=== PATIENT | female | born 1950 | race Caucasian/White ===

== ENCOUNTER 2022-01-01 11:51 | Emergency (ER) | payer MEDICARE, MEDICAID, SELFPAY ==
--- NOTE | ~2022-01-01 | CT_ITS ---
EXAMINATION: CT HEAD WITHOUT CONTRAST CLINICAL INFORMATION: Status post fall with head trauma. COMPARISON: None TECHNIQUE: Contiguous axial imaging was performed from the skull base to vertex without intravenous administration of contrast. Coronal and sagittal reformatted images were obtained. This CT examination was performed using dose optimization techniques as appropriate, variously including the following: *Automated exposure control *Adjustment of mA and/or kV according to patient size (this includes techniques or standardized protocols for targeted exams where dose is matched to indication/reason for exam; i.e. extremities or head) *Use of iterative reconstruction technique DLP: 663.97 mGy-cm FINDINGS: There is mild widening of the cortical sulci and associated ventriculomegaly. Mild periventricular microvascular changes are seen. The lateral ventricles are symmetrical. The third and fourth ventricles are in their normal midline position. The basilar and prepontine cisterns are unremarkable. There is no acute intra or extracerebral abnormality. There is no mass effect or midline shift. Sections through the bony calvarium show a small nonacute defect in the left frontal bone medially without associated abnormality. Small sclerotic density along the external table of the right frontal lobe medially as well. Tiny adjacent midline sclerotic density at this level as well. The orbits are intact. The paranasal sinuses show mild mucosal thickening in the right sphenoid sinus. The mastoid air cells are clear. Mild anterior to mid nasal septal deviation, apex of the right. CT/CT head/brain wo IV con IMPRESSION: 1. No acute intracranial pathology. 2. Small findings in the frontal bones are nonspecific, but do not appear acute and are likely incidental. No surrounding associated abnormality is seen.
--- NOTE | ~2022-01-01 | CT_ITS ---
EXAMINATION: CT CERVICAL SPINE WITHOUT CONTRAST CLINICAL INFORMATION: Neck pain status post fall. COMPARISON: None TECHNIQUE: Multiple axial images of the cervical spine were obtained without the administration of intravenous contrast. Coronal and sagittal reformatted images were obtained. This CT examination was performed using dose optimization techniques as appropriate, variously including the following: *Automated exposure control *Adjustment of mA and/or kV according to patient size (this includes techniques or standardized protocols for targeted exams where dose is matched to indication/reason for exam; i.e. extremities or head) *Use of iterative reconstruction technique DLP: 973 mGy-cm FINDINGS: There is generalized osteopenia. Normal lumbar lordosis is seen. Moderate degenerative disc disease is seen at C5-6 with mild grade 1 retrolisthesis and minimal bilateral neural foraminal narrowing. The facet joints are unremarkable. The spinous processes are intact. The cervical soft tissues are unremarkable. No lymphadenopathy. The thyroid gland shows a coarsely calcified nodules in the isthmus and lobes bilaterally without significant abnormality, not requiring follow-up. The visualized lung apices are clear. CT/CT cervical spine wo IV con IMPRESSION: 1. Generalized osteopenia and C5-6 moderate degenerative disc disease without acute abnormality.
[2022-01-01 11:48] VITALS: BP 150/90; PULSE 87; O2SAT 95
[2022-01-01 11:51] VITALS: BP 146/90; PULSE 89; RESP 18; TEMP 36.9; O2SAT 96
--- NOTE | 2022-01-01 11:54 | ED_ITS ---
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 Patient was outside [facility] smoking a cigarette with another client when they fell on top of each other, this patient fell on top of the other patient. Patient admits to hitting head & abrasion to left elbow. Denies LOC. Denies taking anticoagulation. Denies injury to other area, neck pain, back pain, CP/SOB, abdominal pain, nausea/vomiting. Denies symptoms prior to fall Patient is poor historian complaint: fall Onset (ago): hour(s) Fall from: standing Related Data Allergies Allergy/AdvReac Type Severity Reaction Status Date / Time No Known Allergies Allergy Verified 01/01/22 11:49 Review of Systems Review of Systems: Constitutional: No Fever, No Chills, No Fatigue, No Malaise ENT/Mouth: No Ear Pain, No Nasal Congestion, No sore throat, No Rhinorrhea, No Swallowing Difficulty Eyes: No Eye Pain, No Swelling, No Redness, No Vision Changes Cardiovascular: No Chest Pain, No SOB Respiratory: No Cough, No Dyspnea Gastrointestinal: No Nausea, No Vomiting, No Abdominal pain Musculoskeletal: No joint pain, No Myalgias, No Joint Swelling Skin: + Skin Lesions, No rash Neuro: No Weakness, No Loss of Consciousness, No Dizziness, + Head injury Yes all other systems are reviewed and are negative Constitutional: Constitutional: Reports as per HPI Neurologic: Denies Abnormal speech present [facility] Past Medical History Attestation statement: The following information was validated with the patient. Social History Social History Advance Directives: No Advance Directives Information Provided: No Physical Exam Vital Signs: Vital Signs: Last Vital Signs Temp 98.4 F 01/01/22 11:51 Pulse 89 01/01/22 11:51 Resp 18 01/01/22 11:51 BP 146/90 H 01/01/22 11:51 Pulse Ox 96 01/01/22 11:51 O2 Del Method 01/01/22 11:51 BMI result Body Mass Index 0.0 Const: General: no acute distress, alert, awake and Physically active Limitations: no limitations HEENT: Head: Yes normal to inspection and Yes atraumatic Ears: hearing grossly normal bilaterally General nose exam: Normal external nose present Face and sinus: Yes normal facial exam Mouth: Normal oral and palatal mucosa present Eyes: General: appearance normal, both eyes and all related structures Pupils: Equal, round and reactive pupils present EOM: EOMs intact bilaterally Neck: Other: No midline cervical spinous tenderness Neck: Yes normal visual inspection and Yes no meningeal signs Chest: Chest palpation & inspection: normal inspection of the chest Resp: Effort & Inspection: normal respiratory effort and no respiratory distress Auscultation: clear to auscultation bilaterally, no crackles, no rales and no rhonchi Cardio: Rate: regular rate Heart sounds: S1 normal heart sound present and S2 normal heart sound present GI: Inspection: Yes normal to inspection Palpation (GI): Soft to palpation, nontender, no guarding and not rigid : General: Yes no CVA tenderness Back/Spine/Pelvis: Other: No midline thoracic/lumbar spinous tenderness/step-off or deformity Back: no CVA tenderness Skin: Other: + skin avulsion to left elbow Rashes: no rashes Neuro: Other: Baseline unsteady gait, ambulates with walker General: tone normal, no meningeal signs, no focal motor deficits and CN's II-XI intact bilaterally Cranial nerves: Yes Equal, round and reactive pupils present Cognition (Neuro): normal cognition Speech: No Abnormal speech present Motor exam (neuro): 5/5 motor strength present throughout Extrem: General: Yes normal to inspection Course Course Course Narrative: -patient has been persistently refusing imaging and allowing us to clean her wounds. Patient is under full guardianship due to her schizophrenia, called and spoke with patient's guardian Lupe Lott to clarify and discuss plan of action, Lupe would like patient to obtain imaging studies/everything she needs, will give IM Benadryl and IM Zyprexa to obtain studies -patient lethargic/more cooperative after medications, protecting airway. CT's obtained CT head/brain wo IV con IMPRESSION: ? 1. No acute intracranial pathology. 2. Small findings in the frontal bones are nonspecific, but do not appear acute and are likely incidental. No surrounding associated abnormality is seen. CT cervical spine wo IV con IMPRESSION: ? 1. Generalized osteopenia and C5-6 moderate degenerative disc disease without acute abnormality.? Results discussed with patient including worrisome signs and symptoms and strict return precautions, and when to return to the emergency department. They verbalized understanding and feel safe for discharge at this time. 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 On exam vital signs stable, NAD, mentation/ambulation at baseline, no focal neuro deficits, skin abrasion/avulsion noted to left elbow, no other evidence of trauma. Plan: Head/C-spine CT, elbow x-ray. Patient refusing to allow us to clean skin wound Differential Diagnosis Differential diagnosis: Likely fracture and concussion without loss of consciousness Medical Records Attestation: I reviewed the patient's medical records. Lab Data Attestation: I reviewed the patient's lab results. Labs: Lab Results 01/01/22 Range/Units 14:49 POC Glucose 96 (60-115) mg/dL Discharge Plan Discharge Clinical Impression: Fall, Abrasion, Degenerative disc disease, cervical Patient Disposition: Xfer SNF Transfer Details: [facility] Instructions: Fall Prevention (ED), Degenerative Disc Disease (ED) Additional Instructions: Your head CT and neck CT do not show any acute findings. Keep abrasion drying clean, apply topical bacitracin or Neosporin as needed USE YOUR WALKER WHEN AMBULATING. FOLLOW UP WITH YOUR DOCTOR If symptoms persist or worsen return to the emergency department Referrals: Eugenio Mota MD [Primary Care Provider] - 3 days
--- NOTE | 2022-01-01 12:02 | PC.NURSE ---
attempted to administer benadryl 50mg IM- pt stated I know my rights, and I refuse . reapproached patient, offered to cleanse wound for patient, refused care. Medication was once again refused.
--- NOTE | 2022-01-01 13:31 | PC.NURSE ---
CT Scan attempted again to take pt for exam- pt stated clearly I refuse, I feel fine
[2022-01-01] MEDS: OLANZapine 10 MG VIAL IM (14:01)
[2022-01-01] MEDS: diphenhydrAMINE HCL 50 MG/ML VIAL IM (14:04)
[2022-01-01 14:56] LABS: Glucose, Whole Blood 96 mg/dL (60-115)
--- NOTE | 2022-01-01 18:09 | PC.NURSE ---
called [facility] home- no answer left to call dept for report
== END 2022-01-01 18:10 | disposition skilled nursing facility (03) ==
PROVIDERS: Emergency Provider Emergency Medicine; PCP Internal Medicine
DX: S50.312A Abrasion of left elbow, initial encounter (principal); S09.90XA Unspecified injury of head, initial encounter; W17.89XA Other fall from one level to another, initial encounter; M50.322 Other cervical disc degeneration at C5-C6 level; E11.9 Type 2 diabetes mellitus without complications; F17.210 Nicotine dependence, cigarettes, uncomplicated; Y93.89 Activity, other specified; Y92.126 Garden or yard of nursing home as the place of occurrence of the external cause; Y99.9 Unspecified external cause status
CPT/HCPCS: 70450; 72125; 82947; 96372; 99282; 99284; J1200

== ENCOUNTER 2022-02-24 15:17 | Emergency (ER) | payer MEDICARE, MEDICAID, SELFPAY ==
[2022-02-24 15:38] VITALS: BP 155/68; PULSE 60; RESP 18; TEMP 36.6; O2SAT 96; BMI 22.6
[2022-02-24 16:00] VITALS: BP 117/63; PULSE 64; RESP 16; TEMP 36.6; O2SAT 98
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
--- NOTE | 2022-02-24 16:38 | PC.NURSE ---
pt was assisted with ambulation to bathroom and back to bed,pt voided large amount of urine .
--- NOTE | 2022-02-24 16:45 | PC.NURSE ---
patient a/ox3 . pearrla. breathing even and unlabored . lungs clear throughout . heart rate regular at 75 beats per minute . skin pink warm and dry , no trauma or bruising noted on skin inspection . abdomen soft not tender . positive bowel sounds in all four quadrants . patient reports walking outside and falling without hitting her head or LOC . It was also unwitnessed . Patient refuses scans . Patient ambulates with use of walker . patient aware of plan of care .
[2022-02-24 18:00] VITALS: BP 130/72; PULSE 57; RESP 18; TEMP 36.6; O2SAT 97
--- NOTE | 2022-02-24 18:43 | PC.NURSE ---
1800 rounding done vs taken ,patient had pasta for supper ate 100 % of meal ,drank 360 ml juice and milk .
--- NOTE | 2022-02-24 20:05 | PC.NURSE ---
2000 rounding done ,pt sleeping .
--- NOTE | 2022-02-24 21:28 | PC.NURSE ---
[facility] called at 2112 for a bls transfer back to [facility] they are unable to transport tonaime due to truck availability and will be here in the am. RN and Triple Drum Operator aware.
[2022-02-24 21:51] VITALS: BP 130/68; PULSE 82; RESP 16; TEMP 36.1; O2SAT 98
--- NOTE | 2022-02-24 21:52 | PC.NURSE ---
2200 rounding done ,vs taken pt was assist with ambulation to bathroom and back to bed ,pt voided ,pudding and milk given for bedtime snack ,pt sitting up looking around .
[2022-02-24] MEDS: LORazepam 0.5 MG TABLET PO (22:11)
--- NOTE | 2022-02-24 22:11 | PC.NURSE ---
Patient anxious. Per MAR administered lorazepam.
--- NOTE | 2022-02-25 06:41 | PC.NURSE ---
patient's EMS ride back to facility is here. this RN has spoken to facility to give report. patient is alert, at her baseline. report and paperwork given to EMS.
== END 2022-02-25 06:43 | disposition home or self-care (01) ==
PROVIDERS: Emergency Provider Emergency Medicine
DX: Z04.3 Encounter for examination and observation following other accident (principal); Z91.81 History of falling
CPT/HCPCS: 99283; 99284

== ENCOUNTER 2022-03-05 11:46 | Inpatient (IN) | payer MEDICARE, MEDICAID, SELFPAY ==
[2022-03-05] VITALS (7 sets, daily range): BP systolic 130–155; BP diastolic 60–101; PULSE 55–89; RESP 16–20; TEMP 36.4–36.8; O2SAT 91–97; BMI 25.7
--- NOTE | ~2022-03-05 | XR_ITS ---
EXAMINATION: XR CHEST CLINICAL INFORMATION: Pneumonia COMPARISON: None TECHNIQUE: Frontal view of the chest was obtained. FINDINGS: Left peripheral pleural thickening noted. There is a suggestion of a patchy nodular infiltrate in the lungs right greater than left. There are no prior studies available for review therefore I would recommend a contrast-enhanced CT. Heart and pulmonary vessels are normal. No congestive change. XR/XR chest 1V IMPRESSION: Patchy nodular opacities. CT chest advised.
--- NOTE | 2022-03-05 13:16 | PC.NURSE ---
PT AMB WITH WALKER, NEEDS CONSTANT REDIRECTION TO RETURN TO ROOM
[2022-03-05 13:23] LABS: Influenza A PCR POSITIVE (Negative); Influenza B PCR NEGATIVE (Negative); Resp Syncy Virus RNA Qual PCR NEGATIVE (Negative); SARS COV2 PCR INHOUSE NEGATIVE (Negative)
--- NOTE | 2022-03-05 13:26 | ECG_ITS ---
Test Reason : Shortnes of breath Blood Pressure : / mmHG Vent. Rate : 073 BPM Atrial Rate : 073 BPM P-R Int : 178 ms QRS Dur : 078 ms QT Int : 386 ms P-R-T Axes : 080 055 078 degrees QTc Int : 425 ms Normal sinus rhythm Normal ECG No previous ECGs available Referred By: Landon Jj Electronically Signed By:MICK HIDALGO MD
[2022-03-05] MEDS: OLANZapine 10 MG TABLET PO (14:05)
[2022-03-05 14:18] LABS: Basophils Percent Auto 0.2 % (0-2); Eosinophils Percent Auto 0.2 % (0-4); Hematocrit 34.9 % (37.0-47.0); Hemoglobin 12.1 g/dl (12.0-16.0); Imm Gran Abs Auto 0.02 X10*3/uL (0.00-0.03); Imm Gran Pct Auto 0.4 % (0.0-0.4); Lymphocytes Absolute Auto 0.6 X10*3/uL (1.2-4.9); Lymphocytes Percent Auto 13.5 % (20-40); MANUAL DIFF FLAG SCAN; Mean Corpuscular HGB Conc 34.7 g/dl (31.0-35.0); Mean Corpuscular Hemoglobin 28.1 pg (27.0-33.0); Mean Platelet Volume 9.3 fL (9.4-12.3); Monocytes Absolute Auto 0.4 X10*3/uL (0.1-1.2); Monocytes Percent Auto 8.5 % (2-11); Neutrophils Absolute Auto 3.7 x10*3/uL (2.0-8.3); Neutrophils Percent Auto 77.2 % (45-73); Platelet Count 156 X10*3/uL (160-400); Red Blood Count 4.31 X10*6/uL (4.20-5.50); Red Cell Distribution Width 12.9 % (11.0-16.0); SCAN SMEAR FLAG 1; White Blood Count 4.7 X10*3/uL (4.8-10.8)
[2022-03-05 14:28] LABS: Troponin-I High Sensitivity < 3.5 ng/L (<3.5-17.0)
--- NOTE | 2022-03-05 14:37 | ED_ITS ---
HPI - General Adult General Chief complaint: Upper Respiratory Symptoms Stated complaint: Cold x3days per EMS Time Seen by Provider: 03/05/22 12:14 Source: patient Mode of arrival: ambulatory Limitations: no limitations History of Present Illness HPI narrative: 71-year-old female history of dementia, hypothyroidism, and failure to thrive sent from living facility for coughing and O2 sat of 89-90%. They state patient was exposed to positive flu patient in the facility. Patient has no history of asthma or COPD. Patient is state property and can not refuse medical treatment. Related Data Allergies Allergy/AdvReac Type Severity Reaction Status Date / Time No Known Allergies Allergy Verified 01/01/22 11:49 Review of Systems Review of Systems: coughing Yes all other systems are reviewed and are negative [facility] Past Medical History Medical History (Updated 03/05/22 @ 16:13 by Theresa Perez NP) Dementia Depression Diabetes mellitus Hypothyroidism Schizophrenia Social History Social History Alcohol intake: never Advance Directives: No Advance Directives Information Provided: No Physical Exam ED Vital Signs: Vital Signs - 24 hr 03/05/22 12:28 03/05/22 13:33 03/05/22 14:54 Temperature 98.2 F 97.5 F Pulse Rate 78 78 77 Respiratory Rate 16 20 20 Blood Pressure 132/82 155/98 H 141/101 H Pulse Oximetry 91 L 92 95 Oxygen Delivery Method Room Air Nasal Cannula Nasal Cannula Oxygen Flow Rate 2 03/05/22 15:21 Temperature Pulse Rate 89 Respiratory Rate 18 Blood Pressure Pulse Oximetry Oxygen Delivery Method Oxygen Flow Rate BMI result Body Mass Index 25.7 Const General: cooperative, healthy appearing, comfortable, no acute distress, well developed, alert and awake Orientation/consciousness: oriented to person, oriented to place and oriented to time HENVT Head: Yes normal to inspection, Yes No palpable skull fracture present, Yes normocephalic, Yes atraumatic and No abrasion Eyes General: appearance normal, both eyes and all related structures Neck Neck: Yes normal visual inspection, Yes full ROM, Yes no lymphadenopathy, Yes no meningeal signs, Yes trachea midline, Yes supple, No anterior neck swelling and No tender Chest Chest palpation & inspection: normal inspection of the chest and normal palpation of entire chest wall Resp Effort & Inspection: normal respiratory effort and able to speak in complete sentences Cardio Jugular venous distension: no JVD Heart sounds: S1 normal heart sound present and S2 normal heart sound present GI Inspection: Yes normal to inspection and No abdominal wall ecchymosis Palpation (GI): Soft to palpation, not firm, nontender, no guarding and not rigid General: No CVA tenderness and Yes no CVA tenderness Back/Spine/Pelvis Back: no CVA tenderness, No CVA tenderness and No back tenderness Skin General skin exam: no rashes or lesions noted and elasticity normal Neuro Other: Dementia. Baseline is walking around with a walker and patient walk around the ED with a walker. General: oriented to person, oriented to place, oriented to time, gait normal, tone normal and no meningeal signs Extrem Other: Lower extremities negative for swelling, pitting edema, or calf tenderness General: Yes normal to inspection and Yes full ROM Psych Appearance: grossly normal, well kempt and not disheveled Course Course Course Narrative: Flu swab chest x-ray ordered. Patient also to send 91-92% Reevaluation(s) Reevaluation #1: Patient refused x-ray multiple times. Patient O2 sat room air and now 90%. Patient positive flu. Pending EKG labs and chest x-ray. Reviewed notes from facility negative history of asthma COPD. Lungs negative for wheezing. Patient given Zyprexa. Or to be compliant with medical evaluation and diagnostics. Patient placed on 2 L oxygen. O2 sat 95%. EKG normal sinus rhythm. Ventricular rate 73. TN interval 178. QRS 78. QTC 425. Negative STEMI Time: 14:45 Reevaluation #2: Patient admitted for influenza hypoxia with superimposed pneumonia. Patient received albuterol nebulizer, ceftriaxone, and Tamiflu Time: 16:18 Medications Administered Discontinued Medications Generic Name Dose Route Start Last Admin Trade Name Freq PRN Reason Stop Dose Admin Albuterol/Ipratropium 3 ml 03/05/22 15:03 03/05/22 15:20 Albuterol/Iprat 2.5/0.5mg 3 Ml Ampul.Neb INHALE 03/05/22 15:04 3 ml ONCE ONE Administration Olanzapine 10 mg 03/05/22 13:56 03/05/22 14:05 Olanzapine 10 Mg Tablet PO 03/05/22 13:57 10 mg ONCE ONE Administration Medical Decision Making Medical Decision Making [facility] Narrative: [place] female history of dementia, hypothyroidism, failure to thrive being admitted for influenza a hypoxia and chest x-ray simple both pneumonia. Patient received albuterol treatment, Tamiflu, ceftriaxone IV. Case excepted by hospitalist. Troponin BNP negative. EKG negative. Not suspecting CHF or TX. Discharge Plan Discharge Clinical Impression: Influenza A, Pneumonia Patient Disposition: Admitted As Inpatient
[2022-03-05 14:44] LABS: Alanine Aminotransferase 13 U/L (0-31); Albumin Level 4.5 g/dL (3.5-5.0); Alkaline Phosphatase 75 U/L (39-117); Anion Gap 13 (12-20); Aspartate Amino Transferase 28 U/L (5-31); B Type Natriuretic Peptide 79 pg/mL (<100); Blood Urea Nitrogen 17 mg/dL (9-16); Calcium 10.2 mg/dL (8.4-10.2); Carbon Dioxide 26 mmol/L (22-29); Chloride 97 mmol/L (96-108); Creatinine Clr Calc Pharmacy 42.8; Estimated Glomerular Filt Rate 57; Glucose Random 113 mg/dL (60-115); Potassium 4.3 mmol/L (3.3-5.1); Sodium 132 mmol/L (135-145); Total Protein 7.1 g/dL (6.5-8.0)
[2022-03-05 15:02] LABS: Lactic Acid 0.6 mmol/L (0.5-2.0)
[2022-03-05 15:03] LABS: Bilirubin Total 0.4 mg/dL (0.0-1.0)
[2022-03-05 15:17] LABS: SLIDE REVIEW VERIFIED
[2022-03-05] MEDS: Albuterol/Iprat 2.5/0.5MG 3 ML AMPUL.NEB INHALE (15:20)
[2022-03-05 15:29] LABS: Prothrombin Time 10.9 SEC (10.0-13.1)
[2022-03-05 15:32] LABS: Partial Thromboplastin Time 31.6 SEC (26.0-36.4)
--- NOTE | 2022-03-05 16:11 | PM.IMHP ---
History of Present Illness Date of Service: 03/05/22 Attending physician on admission: Eula Kyle Chief Complaint: Cough 71-year-old woman with a history of dementia presenting from detention facility with frequent cough and hypoxia for 4 days. Unfortunately patient is unable to give any accurate history and she is unaccompanied. In the ER she was found to be influenza A positive. All of her labs within acceptable limits. Vital signs are stable, blood pressure is mildly elevated. Oxygen saturation noted to be 91% on room air. She was given ceftriaxone, Tamiflu, albuterol, Zyprexa, Haldol in the ER. To be admitted for further management and treatment of acute hypoxic respiratory failure secondary to influenza A. Review of Systems Review of Systems: Yes Unobtainable due to mental status [facility] Medical History (Updated 03/05/22 @ 16:13 by Theresa Perez NP) Dementia Depression Diabetes mellitus Hypothyroidism Schizophrenia Pertinent family history: Unable to obtain due to dementia and patient being on accompanied Social History Alcohol intake: never Advance Directives: No Advance Directives Information Provided: No Meds Allergies Allergy/AdvReac Type Severity Reaction Status Date / Time No Known Allergies Allergy Verified 01/01/22 11:49 Home Medications Medication Instructions Recorded Confirmed Last Taken Type acetaminophen 325 mg tablet 650 mg PO Q4H PRN pain/fever 03/05/22 03/05/22 Unknown History aluminum-mag hydroxide-simethicone 30 ml PO Q4H PRN GI UPSET 03/05/22 03/05/22 Unknown History 200 mg-200 mg-20 mg/5 mL oral susp benztropine 1 mg tablet 1 mg PO DAILY 03/05/22 03/05/22 03/04/22 History citalopram 10 mg tablet 10 mg PO DAILY 03/05/22 03/05/22 03/04/22 History citalopram 20 mg tablet 20 mg PO DAILY 03/05/22 03/05/22 03/04/22 History cyanocobalamin (vitamin B-12) 1,000 mcg PO DAILY 03/05/22 03/05/22 03/04/22 History 1,000 mcg tablet docusate sodium 100 mg capsule 100 mg PO BID 03/05/22 03/05/22 03/04/22 History fluphenazine HCl 10 mg tablet 20 mg PO DAILY 03/05/22 03/05/22 03/04/22 History levothyroxine 125 mcg tablet 125 mcg PO DAILY 03/05/22 03/05/22 03/04/22 History loperamide 2 mg tablet 2 mg PO Q4H PRN Loose Stool 03/05/22 03/05/22 Unknown History magnesium hydroxide 400 mg/5 mL 30 ml PO DAILY PRN Constipation 03/05/22 03/05/22 Unknown History oral suspension (Milk of Magnesia) metformin 500 mg tablet 500 mg PO DAILY 03/05/22 03/05/22 03/04/22 History polyethylene glycol 3350 17 17 g PO DAILY PRN Constipation 03/05/22 03/05/22 Unknown History gram/dose oral powder (Miralax) sennosides 8.6 mg tablet (senna) 8.6 mg PO BEDTIME 03/05/22 03/05/22 03/03/22 History Physical Exam Vital Signs and Narrative: Vital Signs: Last Vital Signs Temp 97.5 F 03/05/22 13:33 Pulse 89 03/05/22 15:21 Resp 18 03/05/22 15:21 BP 141/101 H 03/05/22 14:54 Pulse Ox 95 03/05/22 14:54 O2 Del Method 03/05/22 14:54 O2 Flow Rate 2 03/05/22 14:54 BMI result Body Mass Index 25.7 Appearing in no acute distress, thin, elderly appearing head is normocephalic atraumatic eyes pupils are PERRLA sclera is anicteric mouth throat mucous membranes are intact and moist neck is supple no lymphadenopathy, no JVD noted lung sounds rhonchi heart regular rate rhythm, clear S1, S2 positive bowel sounds, abdomen is soft, nontender neuro patient is alert, confused Results Labs CBC and Chem 7: 03/06/22 05:53 03/06/22 05:53 Labs: Laboratory Results - last 24 hr 03/05/22 03/05/22 03/05/22 12:39 13:56 13:56 MCV 81.0 MCH 28.1 MCHC 34.7 RDW 12.9 Plt Count 156 L MPV 9.3 L Immature Gran % (Auto) 0.4 Neut % (Auto) 77.2 H Lymph % (Auto) 13.5 L [place] % (Auto) 8.5 Eos % (Auto) 0.2 Baso % (Auto) 0.2 Lymph # (Auto) 0.6 L [place] # (Auto) 0.4 Eos # (Auto) 0.0 Baso # (Auto) 0.0 Abs Immat Gran (auto) 0.02 Absolute Neuts (auto) 3.7 Absolute Nucleated RBC 0.000 Nucleated RBC % (auto) 0.0 Smear Tech's Comments VERIFIED PT INR APTT Anion Gap 13 Estim Creat Clear Calc 42.8 Estimated GFR 57 Random Glucose 113 Lactic Acid Calcium 10.2 Total Bilirubin 0.4 AST 28 ALT 13 Alkaline Phosphatase 75 Troponin I High Sens B-Natriuretic Peptide Total Protein 7.1 Albumin 4.5 Influenza Type A (PCR) POSITIVE A Influenza Type B (PCR) NEGATIVE RSV RNA Qual (PCR) NEGATIVE SARS-CoV-2 RNA (RT-PCR) NEGATIVE 03/05/22 03/05/22 03/05/22 13:56 13:56 14:45 MCV MCH MCHC RDW Plt Count MPV Immature Gran % (Auto) Neut % (Auto) Lymph % (Auto) [place] % (Auto) Eos % (Auto) Baso % (Auto) Lymph # (Auto) [place] # (Auto) Eos # (Auto) Baso # (Auto) Abs Immat Gran (auto) Absolute Neuts (auto) Absolute Nucleated RBC Nucleated RBC % (auto) Smear Tech's Comments PT 10.9 INR 1.0 APTT 31.6 Anion Gap Estim Creat Clear Calc Estimated GFR Random Glucose Lactic Acid Calcium Total Bilirubin AST ALT Alkaline Phosphatase Troponin I High Sens < 3.5 B-Natriuretic Peptide 79 Total Protein Albumin Influenza Type A (PCR) Influenza Type B (PCR) RSV RNA Qual (PCR) SARS-CoV-2 RNA (RT-PCR) 03/05/22 14:45 MCV MCH MCHC RDW Plt Count MPV Immature Gran % (Auto) Neut % (Auto) Lymph % (Auto) [place] % (Auto) Eos % (Auto) Baso % (Auto) Lymph # (Auto) [place] # (Auto) Eos # (Auto) Baso # (Auto) Abs Immat Gran (auto) Absolute Neuts (auto) Absolute Nucleated RBC Nucleated RBC % (auto) Smear Tech's Comments PT INR APTT Anion Gap Estim Creat Clear Calc Estimated GFR Random Glucose Lactic Acid 0.6 Calcium Total Bilirubin AST ALT Alkaline Phosphatase Troponin I High Sens B-Natriuretic Peptide Total Protein Albumin Influenza Type A (PCR) Influenza Type B (PCR) RSV RNA Qual (PCR) SARS-CoV-2 RNA (RT-PCR) Imaging Radiologist's Impressions: Impressions Chest X-Ray 03/05/22 14:24 IMPRESSION: Patchy nodular opacities. CT chest advised. Assessment and Plan (1) Influenza A: Status: Acute Plan 71 year old woman presenting with influenza symptoms Hypoxia secondary to Influenza A Started on Tamiflu supplemental oxygen Supportive care Robitussin for cough Rocephin and doxycycline Diabetes mellitus Sliding scale, ADA diet, mechanical soft Hyponatremia Mild Follow CBC DVT prophylaxis with heparin Attending Dr. Kyle Full code Patient will likely need to inpatient midnights for treatment of acute hypoxia secondary to influenza Quality Stroke Does the patient have a stroke diagnosis?: No VTE Prior VTE?: No VTE Risk Level:: Medical - moderate - high VTE Device Contraindication: Treatment Not Indicated VTE Drug Contraindication: N/A - Med Ordered
[2022-03-05] MEDS: cefTRIAXone sodium 1 GM in 0.9 % Sodium Chloride 50 ML IV (16:18)
[2022-03-05] MEDS: Oseltamivir Phosphate 75 MG CAPSULE PO (16:18)
--- NOTE | 2022-03-05 16:35 | PHA.MEDREC ---
MED REC COMPLETE, NO ISSUES Pharmacy Consult ? Medication Reconciliation Pharmacy has completed the medication reconciliation.
--- NOTE | 2022-03-05 18:39 | PM.EVENT ---
Event Note Date of Service: 03/05/22 Event Note: This patient is seen and examined with APC. Patient came to the hospital because of hypoxia possible- she is poor historian, unable to give much except she says has some mild short of breath, she knows her name and she knows she is in the hospital. Denies any chest pain or abdominal pain or nausea or vomiting Says she generally weak. Lab imaging, EKG reviewed. WBC count 4.7, sodium 132 Chest x-ray shows nodular opacities Consider chest CT in the morning. Also influenza a serology positive Physical exam and assessment and plan coordinated in APCs note, Agree with the plan in addition: Patient possible has dyspnea related to influenza a/question of superimposed bacterial Pneumonia Continue Tamiflu, nebs, IV antibiotics, added procalcitonin level, follow-up cultures Consider chest CT in the morning.
[2022-03-05 19:55] LABS: Procalcitonin 0.05 ng/mL
[2022-03-05 20:03] LABS: Glucose, Whole Blood 67 mg/dL (60-115)
[2022-03-05] MEDS: Doxycycline Hyclate 100 MG in 0.9 % Sodium Chloride 250 ML 166.67 MG IV (20:43)
[2022-03-05] MEDS: Docusate Sodium 100 MG CAPSULE PO (20:44)
[2022-03-05] MEDS: Sennosides 8.6 MG TABLET PO (20:44)
[2022-03-05] MEDS: 0.9 % Sodium Chloride Flush 3 ML SYRINGE IVFLUSH (23:56)
[2022-03-06] MEDS: Levothyroxine Sodium 125 MCG TABLET PO (04:49)
[2022-03-06] MEDS: Heparin Sodium,Porcine 5,000 UNIT/ML VIAL 5000 UNIT SUBCUT ×2 (04:49→17:50)
[2022-03-06] MEDS: diphenhydrAMINE HCL 50 MG/ML VIAL 25 MG IVPUSH (05:22)
[2022-03-06] MEDS: Doxycycline Hyclate 100 MG in 0.9 % Sodium Chloride 250 ML 166.67 MG IV ×2 (06:08→18:49)
[2022-03-06 06:30] LABS: Hematocrit 33.8 % (37.0-47.0); Hemoglobin 11.6 g/dl (12.0-16.0); Mean Corpuscular HGB Conc 34.3 g/dl (31.0-35.0); Mean Corpuscular Hemoglobin 28.3 pg (27.0-33.0); Mean Corpuscular Volume 82.4 fL (80.0-98.0); Mean Platelet Volume 9.7 fL (9.4-12.3); Platelet Count 121 X10*3/uL (160-400); Red Cell Distribution Width 12.8 % (11.0-16.0); White Blood Count 3.2 X10*3/uL (4.8-10.8)
[2022-03-06 06:43] LABS: Anion Gap 12 (12-20); Blood Urea Nitrogen 12 mg/dL (9-16); Calcium 9.9 mg/dL (8.4-10.2); Carbon Dioxide 26 mmol/L (22-29); Chloride 104 mmol/L (96-108); Estimated Glomerular Filt Rate > 60; Glucose Random 81 mg/dL (60-115); Potassium 4.2 mmol/L (3.3-5.1); Sodium 138 mmol/L (135-145)
[2022-03-06 07:18] LABS: Glucose, Whole Blood 92 mg/dL (60-115)
[2022-03-06 07:28] VITALS: BP 158/79; PULSE 74; RESP 20; TEMP 37.2; O2SAT 91
--- NOTE | 2022-03-06 07:49 | PC.NURSE ---
Addendum entered by Saw Freedman 03/06/22 11:22: Patient desatted to 85 while sleeping. Provider made aware Addendum entered by Saw Freedman 03/06/22 08:45: Patient continues to remove nasal cannula from nose. FORD Cardenas aware Original Note: FORD Cardenas aware of BP and O2 sat
[2022-03-06] MEDS: metFORMIN HCl 500 MG TABLET PO (08:51)
[2022-03-06] MEDS: 0.9 % Sodium Chloride Flush 3 ML SYRINGE IVFLUSH ×2 (08:51→17:11)
[2022-03-06] MEDS: Docusate Sodium 100 MG CAPSULE PO ×2 (08:52→21:00)
[2022-03-06] MEDS: Cyanocobalamin (Vitamin B-12) 1,000 MCG TABLET 1000 MCG PO (08:52)
[2022-03-06] MEDS: fluPHENAZine HCl 5 MG TABLET 20 MG PO (08:52)
[2022-03-06] MEDS: Escitalopram Oxalate 10 MG TABLET PO (08:52)
[2022-03-06] MEDS: Benztropine Mesylate 1 MG TABLET PO (08:52)
[2022-03-06] MEDS: Escitalopram Oxalate 5 MG TABLET 10 MG PO (08:52)
--- NOTE | 2022-03-06 09:13 | PC.NURSE ---
Patient becoming more nonrediractable. Patient continues to try to walk to bathroom and get dressed. Provider aware
[2022-03-06 09:35] VITALS: O2SAT 95
[2022-03-06] MEDS: LORazepam 1 MG TABLET PO (09:59)
[2022-03-06 11:22] VITALS: BP 144/78; PULSE 64; RESP 19; TEMP 37.5; O2SAT 95
[2022-03-06 12:15] VITALS: O2SAT 94
--- NOTE | 2022-03-06 12:21 | MHC.CM.PN ---
This editorial writer attempted to meet with patient, she presented moderately anxious and agreed for this editorial writer to call her guardian Lupe Oren. Spoke to Lupe Lott via phone. Reports that at baseline patient is anxious and does not like to sit still. Ambulates with walker. She is living at [facility] and has been for about 1 year. No services prior to admission. She does have a [facility] case loader operator. Guardianship is uploaded in [employer]. Sharon Lott sent this editorial writer updated Tamayo, uploaded to [employer]. Pt Vax'd and boosted. D/C plan: return to [facility] when med stable, no services at this time. [facility]S for transport. Note: Reported pt smokes about 4 cigarettes per day, Theresa MUSHROOM CULTIVATOR made aware for nicotine replacement while hospitalized.
--- NOTE | 2022-03-06 13:14 | P.PNIM_ITS ---
Subjective Subjective Date of Service: 03/06/22 Review of Systems Follow up influenza feeling very anxious, trying to leave, has her coat on pacing in her room Physical Exam Vital Signs: Vital Signs: Last Vital Signs Temp 99.5 F 03/06/22 11:22 Pulse 64 03/06/22 11:22 Resp 19 03/06/22 11:22 BP 144/78 H 03/06/22 11:22 Pulse Ox 94 03/06/22 12:15 O2 Del Method 03/06/22 12:15 O2 Flow Rate 2 03/06/22 11:22 Oxygen Flow Rate 2 03/06/22 12:15 BMI result Body Mass Index 25.7 Appearing in no acute distress lung sounds are clear to auscultation heart regular rate rhythm, clear S1, S2 positive bowel sounds, abdomen is soft, nontender neuro patient is alert x3, no focal deficits anxious, trying to leave Objective Data Active Medications Acetaminophen (Acetaminophen 325 Mg Tablet) 650 mg PO Q6H PRN PRN Reason: Pain, Mild (Pain Scale 1-3) Al Hydroxide/Mg Hydroxide (Magnesium Hydrox/Alum Hydrox 30 Ml Oral.Susp) 30 ml PO Q4H PRN PRN Reason: GI UPSET Benztropine Mesylate (Benztropine Mesylate 1 Mg Tablet) 1 mg PO DAILY [facility] Last Admin: 03/06/22 08:52 Dose: 1 mg Documented By: MARTINA Cyanocobalamin (Cyanocobalamin (Vitamin B-12) 1,000 Mcg Tablet) 1,000 mcg PO DAILY [facility] Last Admin: 03/06/22 08:52 Dose: 1,000 mcg Documented By: MARTINA Dextrose (Dextrose 50 % 25 Gm/50 Ml Syringe) 25 gm IVPUSH Q15M PRN; Protocol PRN Reason: per Hypoglycemia Standing Ord. Docusate Sodium (Docusate Sodium 100 Mg Capsule) 100 mg PO BID [facility] Last Admin: 03/06/22 08:52 Dose: 100 mg Documented By: MARTINA Escitalopram Oxalate (Escitalopram Oxalate 5 Mg Tablet) 10 mg PO DAILY [facility] Last Admin: 03/06/22 08:52 Dose: 10 mg Documented By: MARTINA Escitalopram Oxalate (Escitalopram Oxalate 10 Mg Tablet) 10 mg PO DAILY [facility] Last Admin: 03/06/22 08:52 Dose: 10 mg Documented By: MARTINA Fluphenazine HCl (Fluphenazine Hcl 5 Mg Tablet) 20 mg PO DAILY [facility] Last Admin: 03/06/22 08:52 Dose: 20 mg Documented By: MARTINA Glucose (Glucose Gel 15 Gm Gel..Gram.) 15 gm PO Q15M PRN; Protocol PRN Reason: per Hypoglycemia Standing Ord. Guaifenesin/Dextromethorphan (Guaifenesin Dm 100/10/5 Ml 5 Ml Syrup) 5 ml PO Q4H PRN PRN Reason: cough Heparin Sodium (Porcine) (Heparin Sodium,Porcine 5,000 Unit/Ml Vial) 5,000 unit SUBCUT Q12H [facility] Last Admin: 03/06/22 04:49 Dose: 5,000 unit Documented By: SARAH Ceftriaxone Sodium 1 gm/ (Sodium Chloride) 50 mls @ 100 mls/hr IV Q24H BARRY Doxycycline Hyclate 100 mg/ (Sodium Chloride) 250 mls @ 166.67 mls/hr IV Q12H [facility] Last Infusion: 03/06/22 07:50 Dose: 0 mls/hr Documented By: MARTINA Insulin Human Lispro (Insulin Lispro 100 Unit/Ml 3 Ml Vial) 0 unit SUBCUT QIDA CHS [facility]; Protocol Last Admin: 03/06/22 07:15 Dose: Not Given Documented By: MARTINA Non-Admin Reason: No Insulin Coverage Comments: POC: 92 @ 7:15 am Levothyroxine Sodium (Levothyroxine Sodium 125 Mcg Tablet) 125 mcg PO DAILY@0600 [facility] Last Admin: 03/06/22 04:49 Dose: 125 mcg Documented By: SARAH Loperamide HCl (Loperamide Hcl 2 Mg Capsule) 2 mg PO Q4H PRN PRN Reason: Loose Stool Magnesium Hydroxide (Milk Of Magnesia 30 Ml Oral.Susp) 30 ml PO DAILY PRN PRN Reason: Constipation Metformin HCl (Metformin Hcl 500 Mg Tablet) 500 mg PO DAILY [facility] Last Admin: 03/06/22 08:51 Dose: 500 mg Documented By: MARTINA Nicotine (Nicotine 14 Mg Patch.Td24) 14 mg TRANSDERMA DAILY [facility] Ondansetron HCl (Ondansetron Hcl 4 Mg/2 Ml Vial) 4 mg IVPUSH Q8H PRN PRN Reason: Nausea and Vomiting Oseltamivir Phosphate (Oseltamivir Phosphate 75 Mg Capsule) 75 mg PO Q24H [facility] Stop: 03/10/22 16:01 Pharmacy Consult (Consult Rx Perform Med Rec) 1 each MISCELLANE ONCE PRN PRN Reason: Consult order Polyethylene Glycol (Polyethylene Glycol 3350 17 Gm Powd.Pack) 17 gm PO DAILY PRN PRN Reason: Constipation Senna (Sennosides 8.6 Mg Tablet) 8.6 mg PO BEDTIME [facility] Last Admin: 03/05/22 20:44 Dose: 8.6 mg Documented By: CINTHYA Sodium Chloride (0.9 % Sodium Chloride Flush 3 Ml Syringe) 3 ml IVFLUSH QSHIFT [facility] Last Admin: 03/06/22 08:51 Dose: 3 ml Documented By: MARTINA Labs CBC & Chem 7: 03/06/22 05:53 03/06/22 05:53 Labs: Laboratory Results - last 24 hr 03/05/22 03/05/22 03/05/22 12:39 13:56 13:56 MCV 81.0 MCH 28.1 MCHC 34.7 RDW 12.9 Plt Count 156 L MPV 9.3 L Immature Gran % (Auto) 0.4 Neut % (Auto) 77.2 H Lymph % (Auto) 13.5 L [place] % (Auto) 8.5 Eos % (Auto) 0.2 Baso % (Auto) 0.2 Lymph # (Auto) 0.6 L [place] # (Auto) 0.4 Eos # (Auto) 0.0 Baso # (Auto) 0.0 Abs Immat Gran (auto) 0.02 Absolute Neuts (auto) 3.7 Absolute Nucleated RBC 0.000 Nucleated RBC % (auto) 0.0 Smear Tech's Comments VERIFIED PT INR APTT Anion Gap 13 Estim Creat Clear Calc 42.8 Estimated GFR 57 POC Glucose Random Glucose 113 Lactic Acid Calcium 10.2 Total Bilirubin 0.4 AST 28 ALT 13 Alkaline Phosphatase 75 Troponin I High Sens B-Natriuretic Peptide Total Protein 7.1 Albumin 4.5 Procalcitonin Influenza Type A (PCR) POSITIVE A Influenza Type B (PCR) NEGATIVE RSV RNA Qual (PCR) NEGATIVE SARS-CoV-2 RNA (RT-PCR) NEGATIVE 03/05/22 03/05/22 03/05/22 13:56 13:56 13:56 MCV MCH MCHC RDW Plt Count MPV Immature Gran % (Auto) Neut % (Auto) Lymph % (Auto) [place] % (Auto) Eos % (Auto) Baso % (Auto) Lymph # (Auto) [place] # (Auto) Eos # (Auto) Baso # (Auto) Abs Immat Gran (auto) Absolute Neuts (auto) Absolute Nucleated RBC Nucleated RBC % (auto) Smear Tech's Comments PT INR APTT Anion Gap Estim Creat Clear Calc Estimated GFR POC Glucose Random Glucose Lactic Acid Calcium Total Bilirubin AST ALT Alkaline Phosphatase Troponin I High Sens < 3.5 B-Natriuretic Peptide 79 Total Protein Albumin Procalcitonin 0.05 Influenza Type A (PCR) Influenza Type B (PCR) RSV RNA Qual (PCR) SARS-CoV-2 RNA (RT-PCR) 03/05/22 03/05/22 03/05/22 14:45 14:45 19:59 MCV MCH MCHC RDW Plt Count MPV Immature Gran % (Auto) Neut % (Auto) Lymph % (Auto) [place] % (Auto) Eos % (Auto) Baso % (Auto) Lymph # (Auto) [place] # (Auto) Eos # (Auto) Baso # (Auto) Abs Immat Gran (auto) Absolute Neuts (auto) Absolute Nucleated RBC Nucleated RBC % (auto) Smear Tech's Comments PT 10.9 INR 1.0 APTT 31.6 Anion Gap Estim Creat Clear Calc Estimated GFR POC Glucose 67 Random Glucose Lactic Acid 0.6 Calcium Total Bilirubin AST ALT Alkaline Phosphatase Troponin I High Sens B-Natriuretic Peptide Total Protein Albumin Procalcitonin Influenza Type A (PCR) Influenza Type B (PCR) RSV RNA Qual (PCR) SARS-CoV-2 RNA (RT-PCR) 03/06/22 03/06/22 03/06/22 05:53 05:53 07:14 MCV 82.4 MCH 28.3 MCHC 34.3 RDW 12.8 Plt Count 121 L MPV 9.7 Immature Gran % (Auto) Neut % (Auto) Lymph % (Auto) [place] % (Auto) Eos % (Auto) Baso % (Auto) Lymph # (Auto) [place] # (Auto) Eos # (Auto) Baso # (Auto) Abs Immat Gran (auto) Absolute Neuts (auto) Absolute Nucleated RBC 0.000 Nucleated RBC % (auto) 0.0 Smear Tech's Comments PT INR APTT Anion Gap 12 Estim Creat Clear Calc 49.0 Estimated GFR > 60 POC Glucose 92 Random Glucose 81 Lactic Acid Calcium 9.9 Total Bilirubin AST ALT Alkaline Phosphatase Troponin I High Sens B-Natriuretic Peptide Total Protein Albumin Procalcitonin Influenza Type A (PCR) Influenza Type B (PCR) RSV RNA Qual (PCR) SARS-CoV-2 RNA (RT-PCR) Assessment and Plan (1) Influenza A: Status: Acute Plan 71 year old woman presenting with influenza symptoms Hypoxia secondary to Influenza A Started on Tamiflu supplemental oxygen Supportive care Robitussin for cough Rocephin and doxycycline for consolidation Diabetes mellitus Sliding scale, ADA diet mechanical soft Hyponatremia Mild Follow CBC Smoker Nicotine replacement therapy Anxiety Lorazepam as needed DVT prophylaxis with heparin Attending Dr. Gonzales Full code continued hospitalization for treatment of acute hypoxia secondary to influenza A Quality Stroke Does the patient have a stroke diagnosis?: No VTE Prior VTE?: No VTE Risk Level:: Medical - moderate - high VTE Device Contraindication: Treatment Not Indicated VTE Drug Contraindication: N/A - Med Ordered
[2022-03-06] MEDS: Nicotine 14 MG PATCH.TD24 TRANSDERMA (13:25)
[2022-03-06 13:31] LABS: Glucose, Whole Blood 54 mg/dL (60-115)
--- NOTE | 2022-03-06 13:32 | PC.NURSE ---
Pt blood sugar noted to be 54. this RN had pt drink apple juice. Will re-assess
[2022-03-06 15:16] LABS: Glucose, Whole Blood 112 mg/dL (60-115)
[2022-03-06 17:08] VITALS: BP 133/68; PULSE 56; RESP 20; O2SAT 95
[2022-03-06] MEDS: cefTRIAXone sodium 1 GM in 0.9 % Sodium Chloride 50 ML IV (17:11)
--- NOTE | 2022-03-06 17:31 | PC.NURSE ---
Addendum entered by Saw Freedman 03/06/22 18:09: This RN attempted to give patient PO tamiflu again but the patient is not able to stay awake to take the medication. FORD Cardenas made aware. Instructed to hold medication for now. Original Note: Patient not awake enough to swallow tamiflu. FORD Cardenas made aware
[2022-03-06 17:45] LABS: Glucose, Whole Blood 101 mg/dL (60-115)
[2022-03-06 20:00] VITALS: BP 127/63; PULSE 52; RESP 16; TEMP 36.6; O2SAT 98
--- NOTE | 2022-03-06 20:22 | PC.NURSE ---
pt refused dinner ,rn mehreen is aware ,pt got change and reposition ,call sawant within reach .
[2022-03-06] MEDS: Sennosides 8.6 MG TABLET PO (21:00)
[2022-03-06 21:02] LABS: Glucose, Whole Blood 102 mg/dL (60-115)
--- NOTE | 2022-03-06 22:35 | PC.NURSE ---
Pt sleeping at this time, respirations normal.
--- NOTE | 2022-03-07 00:40 | PC.NURSE ---
PT sleeping, respiration regular.
[2022-03-07 02:38] VITALS: BP 135/71; PULSE 57; RESP 15; TEMP 36.4; O2SAT 92
--- NOTE | 2022-03-07 02:43 | PC.NURSE ---
Tech at bedside with pt, no needs expressed.
[2022-03-07 04:49] LABS: Basophils Percent Auto 0.3 % (0-2); Eosinophils Percent Auto 1.2 % (0-4); Hematocrit 32.6 % (37.0-47.0); Imm Gran Abs Auto 0.03 X10*3/uL (0.00-0.03); Imm Gran Pct Auto 0.9 % (0.0-0.4); Lymphocytes Absolute Auto 0.9 X10*3/uL (1.2-4.9); Lymphocytes Percent Auto 26.7 % (20-40); MANUAL DIFF FLAG SCAN; Mean Corpuscular HGB Conc 33.7 g/dl (31.0-35.0); Mean Corpuscular Hemoglobin 27.9 pg (27.0-33.0); Mean Corpuscular Volume 82.7 fL (80.0-98.0); Mean Platelet Volume 8.7 fL (9.4-12.3); Monocytes Absolute Auto 0.4 X10*3/uL (0.1-1.2); Monocytes Percent Auto 10.7 % (2-11); Neutrophils Percent Auto 60.2 % (45-73); Platelet Count 121 X10*3/uL (160-400); Red Blood Count 3.94 X10*6/uL (4.20-5.50); Red Cell Distribution Width 12.9 % (11.0-16.0); SCAN SMEAR FLAG 1; White Blood Count 3.4 X10*3/uL (4.8-10.8)
[2022-03-07 05:05] LABS: Anion Gap 10 (12-20); Blood Urea Nitrogen 11 mg/dL (9-16); Calcium 9.4 mg/dL (8.4-10.2); Carbon Dioxide 28 mmol/L (22-29); Chloride 102 mmol/L (96-108); Creatinine Clr Calc Pharmacy 44.7; Estimated Glomerular Filt Rate > 60; Glucose Random 78 mg/dL (60-115); Potassium 4.1 mmol/L (3.3-5.1); Sodium 136 mmol/L (135-145)
[2022-03-07 05:11] LABS: SLIDE REVIEW VERIFIED
[2022-03-07] MEDS: Levothyroxine Sodium 125 MCG TABLET PO (05:32)
[2022-03-07] MEDS: Heparin Sodium,Porcine 5,000 UNIT/ML VIAL 5000 UNIT SUBCUT ×2 (05:34→18:55)
[2022-03-07] MEDS: Doxycycline Hyclate 100 MG in 0.9 % Sodium Chloride 250 ML 166.67 MG IV (06:13)
[2022-03-07 06:55] LABS: Glucose, Whole Blood 81 mg/dL (60-115)
[2022-03-07 08:34] VITALS: BP 172/94; PULSE 69; RESP 18; TEMP 36.7; O2SAT 93
[2022-03-07] MEDS: Benztropine Mesylate 1 MG TABLET PO (08:41)
[2022-03-07] MEDS: Cyanocobalamin (Vitamin B-12) 1,000 MCG TABLET 1000 MCG PO (08:41)
[2022-03-07] MEDS: Escitalopram Oxalate 10 MG TABLET PO (08:41)
[2022-03-07] MEDS: 0.9 % Sodium Chloride Flush 3 ML SYRINGE IVFLUSH ×2 (08:41→18:13)
[2022-03-07] MEDS: Docusate Sodium 100 MG CAPSULE PO ×2 (08:41→21:55)
[2022-03-07] MEDS: Nicotine 14 MG PATCH.TD24 TRANSDERMA (08:55)
--- NOTE | 2022-03-07 11:24 | HO.PM.IMPN ---
Subjective Subjective Date of Service: 03/07/22 Review of Systems Follow up influenza feeling very anxious, trying to leave, pacing in her room Physical Exam Vital Signs: Vital Signs: Last Vital Signs Temp 98.1 F 03/07/22 08:34 Pulse 69 03/07/22 08:34 Resp 18 03/07/22 08:34 BP 172/94 H 03/07/22 08:34 Pulse Ox 93 03/07/22 08:34 O2 Del Method Nasal Cannula 03/07/22 08:34 O2 Flow Rate 3 03/07/22 08:34 Oxygen Flow Rate 2 03/06/22 12:15 BMI result Body Mass Index 25.7 Appearing in no acute distress lung sounds are clear to auscultation heart regular rate rhythm, clear S1, S2 positive bowel sounds, abdomen is soft, nontender neuro patient is alert, confused Objective Data Active Medications Acetaminophen (Acetaminophen 325 Mg Tablet) 650 mg PO Q6H PRN PRN Reason: Pain, Mild (Pain Scale 1-3) Al Hydroxide/Mg Hydroxide (Magnesium Hydrox/Alum Hydrox 30 Ml Oral.Susp) 30 ml PO Q4H PRN PRN Reason: GI UPSET Benztropine Mesylate (Benztropine Mesylate 1 Mg Tablet) 1 mg PO DAILY [facility] Last Admin: 03/07/22 08:41 Dose: 1 mg Documented By: YULIET Cyanocobalamin (Cyanocobalamin (Vitamin B-12) 1,000 Mcg Tablet) 1,000 mcg PO DAILY [facility] Last Admin: 03/07/22 08:41 Dose: 1,000 mcg Documented By: YULIET Dextrose (Dextrose 50 % 25 Gm/50 Ml Syringe) 25 gm IVPUSH Q15M PRN; Protocol PRN Reason: per Hypoglycemia Standing Ord. Docusate Sodium (Docusate Sodium 100 Mg Capsule) 100 mg PO BID [facility] Last Admin: 03/07/22 08:41 Dose: 100 mg Documented By: YULIET Escitalopram Oxalate (Escitalopram Oxalate 5 Mg Tablet) 10 mg PO DAILY [facility] Last Admin: 03/06/22 08:52 Dose: 10 mg Documented By: MARTINA Escitalopram Oxalate (Escitalopram Oxalate 10 Mg Tablet) 10 mg PO DAILY [facility] Last Admin: 03/07/22 08:41 Dose: 10 mg Documented By: YULIET Fluphenazine HCl (Fluphenazine Hcl 5 Mg Tablet) 20 mg PO DAILY [facility] Last Admin: 03/06/22 08:52 Dose: 20 mg Documented By: MARTINA Glucose (Glucose Gel 15 Gm Gel..Gram.) 15 gm PO Q15M PRN; Protocol PRN Reason: per Hypoglycemia Standing Ord. Guaifenesin/Dextromethorphan (Guaifenesin Dm 100/10/5 Ml 5 Ml Syrup) 5 ml PO Q4H PRN PRN Reason: cough Heparin Sodium (Porcine) (Heparin Sodium,Porcine 5,000 Unit/Ml Vial) 5,000 unit SUBCUT Q12H [facility] Last Admin: 03/07/22 05:34 Dose: 5,000 unit Documented By: PAMELA Ceftriaxone Sodium 1 gm/ (Sodium Chloride) 50 mls @ 100 mls/hr IV Q24H [facility] Last Infusion: 03/06/22 18:22 Dose: 0 mls/hr Documented By: MARTINA Doxycycline Hyclate 100 mg/ (Sodium Chloride) 250 mls @ 166.67 mls/hr IV Q12H [facility] Last Infusion: 03/07/22 08:00 Dose: 0 mls/hr Documented By: YULIET Insulin Human Lispro (Insulin Lispro 100 Unit/Ml 3 Ml Vial) 0 unit SUBCUT QIDACHS [facility]; Protocol Last Admin: 03/07/22 06:54 Dose: Not Given Documented By: PAMELA Non-Admin Reason: See Note Comments: Pt BG 81 Levothyroxine Sodium (Levothyroxine Sodium 125 Mcg Tablet) 125 mcg PO DAILY@0600 [facility] Last Admin: 03/07/22 05:32 Dose: 125 mcg Documented By: PAMELA Loperamide HCl (Loperamide Hcl 2 Mg Capsule) 2 mg PO Q4H PRN PRN Reason: Loose Stool Lorazepam (Lorazepam 1 Mg Tablet) 1 mg PO Q6H PRN PRN Reason: anxiety Magnesium Hydroxide (Milk Of Magnesia 30 Ml Oral.Susp) 30 ml PO DAILY PRN PRN Reason: Constipation Metformin HCl (Metformin Hcl 500 Mg Tablet) 500 mg PO DAILY [facility] Last Admin: 03/07/22 08:55 Dose: Not Given Documented By: YULIET Non-Admin Reason: BS 81 Nicotine (Nicotine 14 Mg Patch.Td24) 14 mg TRANSDERMA DAILY [facility] Last Admin: 03/07/22 08:55 Dose: 14 mg Documented By: YULIET Ondansetron HCl (Ondansetron Hcl 4 Mg/2 Ml Vial) 4 mg IVPUSH Q8H PRN PRN Reason: Nausea and Vomiting Oseltamivir Phosphate (Oseltamivir Phosphate 75 Mg Capsule) 75 mg PO Q24H [facility] Stop: 03/10/22 16:01 Last Admin: 03/06/22 18:07 Dose: Not Given Documented By: MARTINA Non-Admin Reason: See Note Pharmacy Consult (Consult Rx Perform Med Rec) 1 each MISCELLANE ONCE PRN PRN Reason: Consult order Polyethylene Glycol (Polyethylene Glycol 3350 17 Gm Powd.Pack) 17 gm PO DAILY PRN PRN Reason: Constipation Senna (Sennosides 8.6 Mg Tablet) 8.6 mg PO BEDTIME [facility] Last Admin: 03/06/22 21:00 Dose: 8.6 mg Documented By: DONALDLITESTEPHANIA Sodium Chloride (0.9 % Sodium Chloride Flush 3 Ml Syringe) 3 ml IVFLUSH QSHIFT [facility] Last Admin: 03/07/22 08:41 Dose: 3 ml Documented By: YULIET Labs CBC & Chem 7: 03/07/22 04:41 03/07/22 04:41 Labs: Laboratory Results - last 24 hr 03/06/22 03/06/22 03/06/22 13:27 15:12 17:42 MCV MCH MCHC RDW Plt Count MPV Immature Gran % (Auto) Neut % (Auto) Lymph % (Auto) [place] % (Auto) Eos % (Auto) Baso % (Auto) Lymph # (Auto) [place] # (Auto) Eos # (Auto) Baso # (Auto) Abs Immat Gran (auto) Absolute Neuts (auto) Absolute Nucleated RBC Nucleated RBC % (auto) Smear Tech's Comments Anion Gap Estim Creat Clear Calc Estimated GFR POC Glucose 54 L* 112 101 Random Glucose Calcium 03/06/22 03/07/22 03/07/22 20:56 04:41 04:41 MCV 82.7 MCH 27.9 MCHC 33.7 RDW 12.9 Plt Count 121 L MPV 8.7 L Immature Gran % (Auto) 0.9 H Neut % (Auto) 60.2 Lymph % (Auto) 26.7 [place] % (Auto) 10.7 Eos % (Auto) 1.2 Baso % (Auto) 0.3 Lymph # (Auto) 0.9 L [place] # (Auto) 0.4 Eos # (Auto) 0.0 Baso # (Auto) 0.0 Abs Immat Gran (auto) 0.03 Absolute Neuts (auto) 2.0 Absolute Nucleated RBC 0.000 Nucleated RBC % (auto) 0.0 Smear Tech's Comments VERIFIED Anion Gap 10 L Estim Creat Clear Calc 44.7 Estimated GFR > 60 POC Glucose 102 Random Glucose 78 Calcium 9.4 03/07/22 06:52 MCV MCH MCHC RDW Plt Count MPV Immature Gran % (Auto) Neut % (Auto) Lymph % (Auto) [place] % (Auto) Eos % (Auto) Baso % (Auto) Lymph # (Auto) [place] # (Auto) Eos # (Auto) Baso # (Auto) Abs Immat Gran (auto) Absolute Neuts (auto) Absolute Nucleated RBC Nucleated RBC % (auto) Smear Tech's Comments Anion Gap Estim Creat Clear Calc Estimated GFR POC Glucose 81 Random Glucose Calcium Microbiology Microbiology Results: Microbiology 03/05/22 14:47 Blood Culture - Preliminary Blood - Venous No growth after 24 hours. 03/05/22 14:45 Blood Culture - Preliminary Blood - Venous No growth after 24 hours. Assessment and Plan (1) Influenza A: Status: Acute Plan 71 year old woman presenting with influenza symptoms Hypoxia secondary to Influenza A Started on Tamiflu supplemental oxygen Supportive care Robitussin for cough Rocephin and doxycycline for consolidation Diabetes mellitus Sliding scale, ADA diet mechanical soft Hyponatremia Mild Follow CBC Smoker Nicotine replacement therapy Anxiety Lorazepam as needed DVT prophylaxis with heparin Attending Dr. Gonzales Full code DISPO possible dc tomorrow if hypoxia resolved continued hospitalization for treatment of acute hypoxia secondary to influenza A Quality Stroke Does the patient have a stroke diagnosis?: No VTE Prior VTE?: No VTE Risk Level:: Medical - moderate - high VTE Device Contraindication: Treatment Not Indicated VTE Drug Contraindication: N/A - Med Ordered
[2022-03-07] MEDS: Escitalopram Oxalate 5 MG TABLET 10 MG PO (11:33)
--- NOTE | 2022-03-07 11:50 | PC.NURSE ---
found her off of 02. 87%. No resp ditress. reapplied o2 and sat increased to 93%. PA aware.
[2022-03-07] MEDS: fluPHENAZine HCl 5 MG TABLET 20 MG PO (13:25)
[2022-03-07 14:45] VITALS: BP 160/73; PULSE 75; RESP 20; TEMP 37; O2SAT 89
[2022-03-07] MEDS: Oseltamivir Phosphate 75 MG CAPSULE PO (16:30)
[2022-03-07] MEDS: LORazepam 1 MG TABLET PO (16:52)
[2022-03-07] MEDS: cefTRIAXone sodium 1 GM in 0.9 % Sodium Chloride 50 ML IV (18:11)
[2022-03-07 18:17] LABS: Glucose, Whole Blood 84 mg/dL (60-115)
[2022-03-07 18:17] LABS: Glucose, Whole Blood 144 mg/dL (60-115)
[2022-03-07] MEDS: Doxycycline Hyclate 100 MG in 0.9 % Sodium Chloride 250 ML 16667 MG IV (19:40)
[2022-03-07 20:02] VITALS: BP 100/61; PULSE 108; RESP 20; TEMP 36.5; O2SAT 97
[2022-03-07 20:05] VITALS: BMI 25.9
[2022-03-07 20:09] LABS: Glucose, Whole Blood 116 mg/dL (60-115)
[2022-03-08 04:00] VITALS: BP 138/68; PULSE 88; RESP 18; TEMP 37; O2SAT 98
[2022-03-08] MEDS: Heparin Sodium,Porcine 5,000 UNIT/ML VIAL 5000 UNIT SUBCUT ×2 (05:42→17:40)
[2022-03-08] MEDS: Levothyroxine Sodium 125 MCG TABLET PO (05:42)
[2022-03-08] MEDS: Doxycycline Hyclate 100 MG in 0.9 % Sodium Chloride 250 ML 166.67 MG IV ×2 (06:15→18:31)
[2022-03-08 07:49] LABS: Glucose, Whole Blood 104 mg/dL (60-115)
[2022-03-08 07:50] VITALS: BP 176/94; PULSE 67; RESP 14; TEMP 36.6; O2SAT 91
[2022-03-08] MEDS: Escitalopram Oxalate 5 MG TABLET 10 MG PO (08:15)
[2022-03-08] MEDS: Escitalopram Oxalate 10 MG TABLET PO (08:17)
[2022-03-08] MEDS: fluPHENAZine HCl 5 MG TABLET 20 MG PO (08:17)
[2022-03-08] MEDS: Nicotine 14 MG PATCH.TD24 TRANSDERMA (08:18)
[2022-03-08] MEDS: metFORMIN HCl 500 MG TABLET PO (08:18)
[2022-03-08] MEDS: Cyanocobalamin (Vitamin B-12) 1,000 MCG TABLET 1000 MCG PO (08:18)
[2022-03-08] MEDS: Docusate Sodium 100 MG CAPSULE PO (08:18)
[2022-03-08] MEDS: Benztropine Mesylate 1 MG TABLET PO (08:18)
[2022-03-08] MEDS: 0.9 % Sodium Chloride Flush 3 ML SYRINGE IVFLUSH ×3 (08:20→20:47)
--- NOTE | 2022-03-08 09:42 | P.PNIM_ITS ---
Subjective Subjective Date of Service: 03/08/22 Interval History: seen and examined this morning follow up for FLU, pneumonia appears somewhat anxious, which seems to be her baseline. She is confused, but able to state her name. She denies any shortness of breath at this time, reports a dry cough Review of Systems Review of Systems: Yes all other systems are reviewed and are negative Constitutional Constitutional: Denies chills and Denies fever(s) Cardiovascular Cardiovascular: Denies chest pain and Denies dyspnea Respiratory Respiratory: Reports cough and Denies dyspnea Gastrointestinal Gastrointestinal: Denies abdominal pain Physical Exam Vital Signs: Vital Signs: Last Vital Signs Temp 97.9 F 03/08/22 07:50 Pulse 67 03/08/22 07:50 Resp 14 03/08/22 07:50 BP 176/94 H 03/08/22 07:50 Pulse Ox 91 L 03/08/22 07:50 O2 Del Method 03/08/22 07:50 O2 Flow Rate 2 03/08/22 07:50 Oxygen Flow Rate 2 03/06/22 12:15 BMI result Body Mass Index 25.9 Const: Other: seen ambulating in room, somewhat anxious appearing General: comfortable, alert and awake Nutritional Appearance: thin Orientation/consciousness: oriented to person Resp: Other: diminished breath sounds, scattered expiratory wheezes Effort & Inspection: able to speak in complete sentences Cardio: Rate: regular rate Heart sounds: S1 normal heart sound present and S2 normal heart sound present GI: Inspection: No distended Palpation (GI): Soft to palpation Neuro: General: oriented to person and CN's II-XI intact bilaterally Extrem: General: Yes no pedal edema Objective Data Active Medications Acetaminophen (Acetaminophen 325 Mg Tablet) 650 mg PO Q6H PRN PRN Reason: Pain, Mild (Pain Scale 1-3) Al Hydroxide/Mg Hydroxide (Magnesium Hydrox/Alum Hydrox 30 Ml Oral.Susp) 30 ml PO Q4H PRN PRN Reason: GI UPSET Benztropine Mesylate (Benztropine Mesylate 1 Mg Tablet) 1 mg PO DAILY [facility] Last Admin: 03/08/22 08:18 Dose: 1 mg Documented By: GRETCHEN Cyanocobalamin (Cyanocobalamin (Vitamin B-12) 1,000 Mcg Tablet) 1,000 mcg PO DAILY [facility] Last Admin: 03/08/22 08:18 Dose: 1,000 mcg Documented By: GRETCHEN Dextrose (Dextrose 50 % 25 Gm/50 Ml Syringe) 25 gm IVPUSH Q15M PRN; Protocol PRN Reason: per Hypoglycemia Standing Ord. Docusate Sodium (Docusate Sodium 100 Mg Capsule) 100 mg PO BID [facility] Last Admin: 03/08/22 08:18 Dose: 100 mg Documented By: GRETCHEN Escitalopram Oxalate (Escitalopram Oxalate 10 Mg Tablet) 10 mg PO DAILY [facility] Last Admin: 03/08/22 08:17 Dose: 10 mg Documented By: GRETCHEN Escitalopram Oxalate (Escitalopram Oxalate 5 Mg Tablet) 5 mg PO DAILY [facility] Fluphenazine HCl (Fluphenazine Hcl 5 Mg Tablet) 20 mg PO DAILY [facility] Last Admin: 03/08/22 08:17 Dose: 20 mg Documented By: GRETCHEN Glucose (Glucose Gel 15 Gm Gel..Gram.) 15 gm PO Q15M PRN; Protocol PRN Reason: per Hypoglycemia Standing Ord. Guaifenesin/Dextromethorphan (Guaifenesin Dm 100/10/5 Ml 5 Ml Syrup) 5 ml PO Q4H PRN PRN Reason: cough Heparin Sodium (Porcine) (Heparin Sodium,Porcine 5,000 Unit/Ml Vial) 5,000 unit SUBCUT Q12H [facility] Last Admin: 03/08/22 05:42 Dose: 5,000 unit Documented By: JENNI Ceftriaxone Sodium 1 gm/ (Sodium Chloride) 50 mls @ 100 mls/hr IV Q24H [facility] Last Infusion: 03/07/22 20:33 Dose: 0 mls/hr Documented By: JENNI Doxycycline Hyclate 100 mg/ (Sodium Chloride) 250 mls @ 166.67 mls/hr IV Q12H [facility] Last Infusion: 03/08/22 08:59 Dose: 0 mls/hr Documented By: GRETCHEN Insulin Human Lispro (Insulin Lispro 100 Unit/Ml 3 Ml Vial) 0 unit SUBCUT QIDACHS [facility]; Protocol Last Admin: 03/08/22 07:33 Dose: Not Given Documented By: GRETCHEN Non-Admin Reason: No Insulin Coverage Levothyroxine Sodium (Levothyroxine Sodium 125 Mcg Tablet) 125 mcg PO DAILY@0600 [facility] Last Admin: 03/08/22 05:42 Dose: 125 mcg Documented By: JENNI Loperamide HCl (Loperamide Hcl 2 Mg Capsule) 2 mg PO Q4H PRN PRN Reason: Loose Stool Lorazepam (Lorazepam 1 Mg Tablet) 1 mg PO Q6H PRN PRN Reason: anxiety Last Admin: 03/07/22 16:52 Dose: 1 mg Documented By: AKBAR Magnesium Hydroxide (Milk Of Magnesia 30 Ml Oral.Susp) 30 ml PO DAILY PRN PRN Reason: Constipation Metformin HCl (Metformin Hcl 500 Mg Tablet) 500 mg PO DAILY [facility] Last Admin: 03/08/22 08:18 Dose: 500 mg Documented By: GRETCHEN Nicotine (Nicotine 14 Mg Patch.Td24) 14 mg TRANSDERMA DAILY [facility] Last Admin: 03/08/22 08:18 Dose: 14 mg Documented By: GRETCHEN Ondansetron HCl (Ondansetron Hcl 4 Mg/2 Ml Vial) 4 mg IVPUSH Q8H PRN PRN Reason: Nausea and Vomiting Oseltamivir Phosphate (Oseltamivir Phosphate 75 Mg Capsule) 75 mg PO Q24H [facility] Stop: 03/10/22 16:01 Last Admin: 03/07/22 16:30 Dose: 75 mg Documented By: AKBAR Pharmacy Consult (Consult Rx Perform Med Rec) 1 each MISCELLANE ONCE PRN PRN Reason: Consult order Polyethylene Glycol (Polyethylene Glycol 3350 17 Gm Powd.Pack) 17 gm PO DAILY PRN PRN Reason: Constipation Senna (Sennosides 8.6 Mg Tablet) 8.6 mg PO BEDTIME [facility] Last Admin: 03/07/22 21:55 Dose: 8.6 mg Documented By: JENNI Sodium Chloride (0.9 % Sodium Chloride Flush 3 Ml Syringe) 3 ml IVFLUSH QSHIFT [facility] Last Admin: 03/08/22 08:20 Dose: 3 ml Documented By: GRETCHEN Labs CBC & Chem 7: 03/07/22 04:41 03/07/22 04:41 Labs: Laboratory Results - last 24 hr 03/07/22 03/07/22 03/07/22 13:10 18:11 20:06 POC Glucose 84 144 H 116 H 03/08/22 07:27 POC Glucose 104 Microbiology Microbiology Results: Microbiology 03/05/22 14:47 Blood Culture - Preliminary Blood - Venous No growth after 48 hours. 03/05/22 14:45 Blood Culture - Preliminary Blood - Venous No growth after 48 hours. Assessment and Plan (1) Influenza A: Status: Acute (2) Pneumonia: Status: Acute Plan 71 year old woman presenting with influenza symptoms Acute respiratory failure secondary to Influenza A/viral pneumonia supplemental oxygen - wean as tolerated Supportive care continue tamiflu Community acquired pneumonia Rocephin and doxycycline for any superimposed bacterial infection cxr with nodular opacity - outpatient chest CT to ensure resolution Diabetes mellitus metformin on hold Sliding scale, ADA diet mechanical soft Hyponatremia resolved Tobacco dependence Nicotine replacement therapy Hypothyroidism continue synthroid Anxiety/mood continue baseline medications DVT prophylaxis with heparin Attending Dr. Gonzales Full code DISPO return to [facility] when medically ready continued hospitalization for treatment of acute hypoxia secondary to influenza A Quality Stroke Does the patient have a stroke diagnosis?: No VTE Prior VTE?: No VTE Risk Level:: Medical - moderate - high VTE Device Contraindication: Treatment Not Indicated VTE Drug Contraindication: N/A - Med Ordered
[2022-03-08] MEDS: polyethylene glycoL 3350 17 GM POWD.PACK PO (10:31)
[2022-03-08] MEDS: Escitalopram Oxalate 5 MG TABLET PO (10:35)
[2022-03-08 11:24] LABS: Glucose, Whole Blood 106 mg/dL (60-115)
[2022-03-08 15:00] VITALS: BP 156/80; PULSE 60; RESP 16; TEMP 36.1; O2SAT 90
[2022-03-08 15:04] VITALS: BP 156/80; PULSE 60; RESP 16; TEMP 36.1; O2SAT 90
[2022-03-08 15:50] LABS: Glucose, Whole Blood 78 mg/dL (60-115)
[2022-03-08] MEDS: Oseltamivir Phosphate 75 MG CAPSULE PO (16:25)
[2022-03-08] MEDS: cefTRIAXone sodium 1 GM in 0.9 % Sodium Chloride 50 ML IV (17:41)
[2022-03-08 18:00] VITALS: O2SAT 95
[2022-03-08 18:43] LABS: Glucose, Whole Blood 100 mg/dL (60-115)
[2022-03-08 19:14] VITALS: BP 141/84; PULSE 59; RESP 16; TEMP 36.3; O2SAT 93
[2022-03-08 23:57] LABS: Glucose, Whole Blood 138 mg/dL (60-115)
[2022-03-09] VITALS (7 sets, daily range): BP systolic 128–175; BP diastolic 70–87; PULSE 51–90; RESP 14–19; TEMP 35.9–37.4; O2SAT 90–95
[2022-03-09] MEDS: LORazepam 1 MG TABLET PO (00:52)
[2022-03-09] MEDS: Docusate Sodium 100 MG CAPSULE PO ×3 (00:56→20:57)
[2022-03-09] MEDS: Sennosides 8.6 MG TABLET PO ×3 (00:57→20:57)
--- NOTE | 2022-03-09 01:15 | PC.NURSE ---
Shift report : Was told patient [place] and can refuse treatment , when this RN was reading patient reports It stated Patient cannot refuse treatment. This RN called Dina Willson spoke to Deepthi mini shifter RN, she said this is normal for the patient to refuse, and can be very subborn. I gave Medication given unscheduled once I got patient to agree.
[2022-03-09] MEDS: Heparin Sodium,Porcine 5,000 UNIT/ML VIAL 5000 UNIT SUBCUT ×2 (05:52→17:03)
[2022-03-09] MEDS: Levothyroxine Sodium 125 MCG TABLET PO (05:52)
--- NOTE | 2022-03-09 06:32 | PC.NURSE ---
0603 Several Unsuccessful attempts to obtain IV access [place] text DR Julian for PO doxycycline vs IV . Dr dasilva order.
[2022-03-09 07:36] LABS: Glucose, Whole Blood 89 mg/dL (60-115)
[2022-03-09] MEDS: Nicotine 14 MG PATCH.TD24 TRANSDERMA (09:06)
[2022-03-09] MEDS: Cyanocobalamin (Vitamin B-12) 1,000 MCG TABLET 1000 MCG PO (09:07)
[2022-03-09] MEDS: Escitalopram Oxalate 5 MG TABLET PO (09:07)
[2022-03-09] MEDS: fluPHENAZine HCl 5 MG TABLET 20 MG PO (09:07)
[2022-03-09] MEDS: Doxycycline Monohydrate 100 MG CAPSULE PO ×2 (09:07→17:01)
[2022-03-09] MEDS: Escitalopram Oxalate 10 MG TABLET PO (09:07)
[2022-03-09] MEDS: Benztropine Mesylate 1 MG TABLET PO (09:07)
[2022-03-09] MEDS: metFORMIN HCl 500 MG TABLET PO (09:08)
[2022-03-09] MEDS: 0.9 % Sodium Chloride Flush 3 ML SYRINGE IVFLUSH ×3 (09:08→20:57)
[2022-03-09 11:07] LABS: Glucose, Whole Blood 132 mg/dL (60-115)
--- NOTE | 2022-03-09 15:01 | MHC.CM.PN ---
per rounds pt is not ready today plan is to return to [facility]
--- NOTE | 2022-03-09 15:26 | HO.PM.IMPN ---
Subjective Subjective Date of Service: 03/09/22 Interval History: seen and examined this morning follow up for FLU, pneumonia appears somewhat anxious, which seems to be her baseline. She is confused, but able to state her name. Still with cough, now productive. No SOB Review of Systems Review of Systems: Yes Unobtainable due to mental condition Physical Exam Vital Signs: Vital Signs: Last Vital Signs Temp 96.7 F L 03/09/22 14:58 Pulse 90 03/09/22 14:58 Resp 18 03/09/22 14:58 BP 154/86 H 03/09/22 14:58 Pulse Ox 93 03/09/22 14:58 O2 Del Method 03/09/22 14:58 O2 Flow Rate 1 03/09/22 07:43 Oxygen Flow Rate 2 03/06/22 12:15 BMI result Body Mass Index 25.9 Constitutional - Awake and Alert, No apparent distress Eyes - PERRLA, EOMI Cardiovascular - S1S2, RRR, No edema Respiratory - Normal lung expansion, Normal respiratory effort, No respiratory distress, Diminished lung sounds, expiratory wheezes, rhonchi lll Gastrointestinal - NT / ND; +BS; No rebound or guarding Extremities - no calf tenderness bilaterally, no swelling Musculoskeletal - Normal inspection, normal ROM Skin - Warm/Dry Neurological - Alert & oriented to self Psychological - Appropriate affect Objective Data Active Medications Acetaminophen (Acetaminophen 325 Mg Tablet) 650 mg PO Q6H PRN PRN Reason: Pain, Mild (Pain Scale 1-3) Al Hydroxide/Mg Hydroxide (Magnesium Hydrox/Alum Hydrox 30 Ml Oral.Susp) 30 ml PO Q4H PRN PRN Reason: GI UPSET Benztropine Mesylate (Benztropine Mesylate 1 Mg Tablet) 1 mg PO DAILY [facility] Last Admin: 03/09/22 09:07 Dose: 1 mg Documented By: JOHN Cyanocobalamin (Cyanocobalamin (Vitamin B-12) 1,000 Mcg Tablet) 1,000 mcg PO DAILY [facility] Last Admin: 03/09/22 09:07 Dose: 1,000 mcg Documented By: JOHN Dextrose (Dextrose 50 % 25 Gm/50 Ml Syringe) 25 gm IVPUSH Q15M PRN; Protocol PRN Reason: per Hypoglycemia Standing Ord. Docusate Sodium (Docusate Sodium 100 Mg Capsule) 100 mg PO BID [facility] Last Admin: 03/09/22 09:07 Dose: 100 mg Documented By: JOHN Doxycycline Monohydrate (Doxycycline Monohydrate 100 Mg Capsule) 100 mg PO Q12H [facility] Last Admin: 03/09/22 09:07 Dose: 100 mg Documented By: JOHN Escitalopram Oxalate (Escitalopram Oxalate 10 Mg Tablet) 10 mg PO DAILY [facility] Last Admin: 03/09/22 09:07 Dose: 10 mg Documented By: JOHN Escitalopram Oxalate (Escitalopram Oxalate 5 Mg Tablet) 5 mg PO DAILY [facility] Last Admin: 03/09/22 09:07 Dose: 5 mg Documented By: JOHN Fluphenazine HCl (Fluphenazine Hcl 5 Mg Tablet) 20 mg PO DAILY [facility] Last Admin: 03/09/22 09:07 Dose: 20 mg Documented By: JOHN Glucose (Glucose Gel 15 Gm Gel..Gram.) 15 gm PO Q15M PRN; Protocol PRN Reason: per Hypoglycemia Standing Ord. Guaifenesin/Dextromethorphan (Guaifenesin Dm 100/10/5 Ml 5 Ml Syrup) 5 ml PO Q4H PRN PRN Reason: cough Heparin Sodium (Porcine) (Heparin Sodium,Porcine 5,000 Unit/Ml Vial) 5,000 unit SUBCUT Q12H [facility] Last Admin: 03/09/22 05:52 Dose: 5,000 unit Documented By: GERTRUDIS Ceftriaxone Sodium 1 gm/ (Sodium Chloride) 50 mls @ 100 mls/hr IV Q24H [facility] Last Infusion: 03/08/22 19:02 Dose: 0 mls/hr Documented By: GERTRUDIS Insulin Human Lispro (Insulin Lispro 100 Unit/Ml 3 Ml Vial) 0 unit SUBCUT QIDACHS [facility]; Protocol Last Admin: 03/09/22 12:06 Dose: Not Given Documented By: JOHN Non-Admin Reason: No Insulin Coverage Levothyroxine Sodium (Levothyroxine Sodium 125 Mcg Tablet) 125 mcg PO DAILY@0600 [facility] Last Admin: 03/09/22 05:52 Dose: 125 mcg Documented By: GERTRUDIS Loperamide HCl (Loperamide Hcl 2 Mg Capsule) 2 mg PO Q4H PRN PRN Reason: Loose Stool Lorazepam (Lorazepam 1 Mg Tablet) 1 mg PO Q6H PRN PRN Reason: anxiety Last Admin: 03/09/22 00:52 Dose: 1 mg Documented By: GERTRUDIS Magnesium Hydroxide (Milk Of Magnesia 30 Ml Oral.Susp) 30 ml PO DAILY PRN PRN Reason: Constipation Metformin HCl (Metformin Hcl 500 Mg Tablet) 500 mg PO DAILY [facility] Last Admin: 03/09/22 09:08 Dose: 500 mg Documented By: JOHN Nicotine (Nicotine 14 Mg Patch.Td24) 14 mg TRANSDERMA DAILY [facility] Last Admin: 03/09/22 09:06 Dose: 14 mg Documented By: JOHN Ondansetron HCl (Ondansetron Hcl 4 Mg/2 Ml Vial) 4 mg IVPUSH Q8H PRN PRN Reason: Nausea and Vomiting Oseltamivir Phosphate (Oseltamivir Phosphate 75 Mg Capsule) 75 mg PO Q24H [facility] Stop: 03/10/22 16:01 Last Admin: 03/08/22 16:25 Dose: 75 mg Documented By: GRETCHEN Pharmacy Consult (Consult Rx Perform Med Rec) 1 each MISCELLANE ONCE PRN PRN Reason: Consult order Polyethylene Glycol (Polyethylene Glycol 3350 17 Gm Powd.Pack) 17 gm PO DAILY PRN PRN Reason: Constipation Last Admin: 03/08/22 10:31 Dose: 17 gm Documented By: GRETCHEN Senna (Sennosides 8.6 Mg Tablet) 8.6 mg PO BEDTIME [facility] Last Admin: 03/09/22 00:57 Dose: 8.6 mg Documented By: GERTRUDIS Sodium Chloride (0.9 % Sodium Chloride Flush 3 Ml Syringe) 3 ml IVFLUSH QSHIFT [facility] Last Admin: 03/09/22 09:08 Dose: 3 ml Documented By: JOHN Labs CBC & Chem 7: 03/07/22 04:41 03/07/22 04:41 Labs: Laboratory Results - last 24 hr 03/08/22 03/08/22 03/08/22 15:42 18:40 23:53 POC Glucose 78 100 138 H 03/09/22 03/09/22 07:19 10:57 POC Glucose 89 132 H Assessment and Plan (1) Influenza A: Status: Acute (2) Pneumonia: Status: Acute Plan 71 year old woman presenting with influenza symptoms Acute respiratory failure secondary to Influenza A/viral pneumonia- resolved COntinue tx of influenza and pneumonia below Influenza Continue tamiflu (D3 of 5) Community acquired pneumonia Continue Rocephin and doxycycline for any superimposed bacterial infection Now with rhonchi LLL, CXR ordered Nursing denies any choking/aspiration during feeding. Albuterol prn wheezing cxr with nodular opacity - outpatient chest CT to ensure resolution Diabetes mellitus metformin on hold Sliding scale, ADA diet mechanical soft Hyponatremia resolved Tobacco dependence Nicotine replacement therapy Hypothyroidism continue synthroid Anxiety/mood continue baseline medications DVT prophylaxis with heparin Attending Dr. Gonzales Full code DISPO return to [facility] when medically ready continued hospitalization for treatment of acute hypoxia secondary to influenza A, requiring supplemental O2 titration with plan to discharge tomorrow if medically stable Quality Stroke Does the patient have a stroke diagnosis?: No VTE Prior VTE?: No VTE Risk Level:: Medical - moderate - high VTE Device Contraindication: Treatment Not Indicated VTE Drug Contraindication: N/A - Med Ordered
[2022-03-09 16:07] LABS: Glucose, Whole Blood 104 mg/dL (60-115)
[2022-03-09] MEDS: cefTRIAXone sodium 1 GM in 0.9 % Sodium Chloride 50 ML IV (16:57)
[2022-03-09] MEDS: Oseltamivir Phosphate 75 MG CAPSULE PO (17:01)
[2022-03-09 19:34] LABS: Glucose, Whole Blood 80 mg/dL (60-115)
[2022-03-10 03:08] VITALS: BP 142/78; PULSE 51; RESP 18; TEMP 36.1; O2SAT 91
[2022-03-10] MEDS: Doxycycline Monohydrate 100 MG CAPSULE PO (05:12)
[2022-03-10] MEDS: Heparin Sodium,Porcine 5,000 UNIT/ML VIAL 5000 UNIT SUBCUT (05:12)
[2022-03-10] MEDS: Levothyroxine Sodium 125 MCG TABLET PO (05:12)
[2022-03-10 07:11] VITALS: BP 142/87; PULSE 64; RESP 16; TEMP 36.3; O2SAT 94
[2022-03-10 07:31] LABS: Glucose, Whole Blood 119 mg/dL (60-115)
[2022-03-10] MEDS: fluPHENAZine HCl 5 MG TABLET 20 MG PO (09:00)
[2022-03-10] MEDS: metFORMIN HCl 500 MG TABLET PO (09:21)
[2022-03-10] MEDS: 0.9 % Sodium Chloride Flush 3 ML SYRINGE IVFLUSH (09:21)
[2022-03-10] MEDS: Escitalopram Oxalate 10 MG TABLET PO (09:22)
[2022-03-10] MEDS: Cyanocobalamin (Vitamin B-12) 1,000 MCG TABLET 1000 MCG PO (09:22)
[2022-03-10] MEDS: Escitalopram Oxalate 5 MG TABLET PO (09:22)
[2022-03-10] MEDS: Docusate Sodium 100 MG CAPSULE PO (09:22)
[2022-03-10] MEDS: Benztropine Mesylate 1 MG TABLET PO (09:22)
[2022-03-10 11:33] LABS: Glucose, Whole Blood 101 mg/dL (60-115)
--- NOTE | 2022-03-10 14:47 | P.DS_ITS ---
DS: Providers Provider Date of Service: 03/10/22 Date of admission: 03/05/22 16:31 Date of discharge: 03/10/22 Primary care physician: Eugenio Mota MD Admitting clinician: Theresa ePrez Attending physician on admission: Eula Kyle Attending physician on discharge: Oliver Gonzales Discharging clinician: Bianka Blake DS: Diagnosis Discharge Diagnosis (1) Influenza A: Status: Acute (2) Pneumonia: Status: Acute DS: Summary Hospital Course Hospital Course: HPI on admission by Theresa Perez NP 03/05/2022: 71-year-old woman with a history of dementia presenting from [facility] with frequent cough and hypoxia for 4 days.? Unfortunately patient is unable to give any accurate history and she is unaccompanied.? In the ER she was found to be influenza A positive.? All of her labs within acceptable limits.? Vital signs are stable, blood pressure is mildly elevated.? Oxygen saturation noted to be 91% on room air.? She was given ceftriaxone, Tamiflu, albuterol, Zyprexa, Haldol in the ER.? To be admitted for further management and treatment of acute hypoxic respiratory failure secondary to influenza A. Hospital Course: Patient admitted to [facility] for management of acute hypoxemic respiratory failure secondary to influenza A. She was placed on supplemental O2 and was successfully weaned on D4. She was treated with 4 doses of tamiflu (patient refused dose on day 2) and should complete 5 day course at home. CXR did not reveal any definite focal consolidation but she was covered for superimposed bacterial infection with ceftriaxone 1g daily and doxycycline 100mg BID x 5 days. Should complete 7 day course antibiotics at home with augmentin 875mg BID and doxycline 100mg BID. She was also initially treated with duonebs for wheezing which resoled. Initial CXR showed nodular opacity of unclear significance and outpt follow up with chest CT is recommended, follow up soon with PCP. Repeat CXR ordered due to rhonchi noted on exam 03/09, but patient refused xray. Reassessed this morning with resolution. Likely congestion cleared by cough, further workup not indicated and CXR canceled. She was counseled on smoking cessation and treated with NRT. Patient not interested in quitting. Hospital course by overall unremarkable. She will be discharged to [facility] where she resides. Patient no longer requires isolation precaution for influenza as symptoms begin 9 days ago. Time spent discussing smoking cessation with patient: more than 10 minutes Status at Discharge Functional status at discharge: uses cane/walker Overall status at discharge: patient is back to baseline Time Spent with Patient Time attestation: Total time managing care of this patient today 35 minutes. Discharge coordination time: Greater than 30 minutes Quality: Safe Use of Opioids Does Pt have an Active Cancer Diagnosis on the Problem List?: No Quality: Stroke Does the patient have a stroke diagnosis?: No Physical Exam Vital Signs: Vital Signs: Last Vital Signs Temp 97.4 F 03/10/22 07:11 Pulse 64 03/10/22 07:11 Resp 16 03/10/22 07:11 BP 142/87 H 03/10/22 07:11 Pulse Ox 94 03/10/22 07:11 O2 Del Method 03/10/22 07:11 O2 Flow Rate 1 03/09/22 19:00 Oxygen Flow Rate 2 03/06/22 12:15 BMI result Body Mass Index 25.9 Constitutional - Awake and Alert, No apparent distress Eyes - PERRLA Cardiovascular - S1S2, RRR, No edema Respiratory - Normal lung expansion, Normal respiratory effort, No respiratory distress, CTA bilaterally Gastrointestinal - NT / ND; +BS; No rebound or guarding Extremities - no calf tenderness bilaterally, no swelling Skin - Warm/Dry Neurological - Alert & oriented to self, able to answer targeted questions Psychological - Appropriate affect, anxious DS: Data Data Completed and Pending Labs on day of discharge: Laboratory Results - last 24 hr 03/09/22 03/09/22 03/10/22 16:03 19:28 07:17 POC Glucose 104 80 119 H 03/10/22 11:11 POC Glucose 101 Preliminary micro results at discharge 03/05/22 14:47 Blood Culture - Preliminary Blood - Venous No growth after 48 hours. 03/05/22 14:45 Blood Culture - Preliminary Blood - Venous No growth after 48 hours. Discharge Plan Discharge Anticipated Discharge Date/Time: 03/10/22 14:12 Patient Disposition: er [facility] Discharge Diagnosis: Influenza, Pneumonia, Hypoxia Referrals: [facility] [Outside] - 1 Week Eugenio Mota MD [Primary Care Provider] - 1 Week Discharge Medications: New oseltamivir [Tamiflu] 75 mg capsule 75 mg PO DAILY Qty: 1 0RF amoxicillin-pot clavulanate 875-125 mg tablet 1 tab PO BID Qty: 4 0RF doxycycline hyclate 100 mg capsule 100 mg PO BID Qty: 4 0RF Continued benztropine 1 mg Tablet 1 mg PO DAILY citalopram 10 mg Tablet 10 mg PO DAILY Rx Instructions: TAKES TOGETHER WITH 20 MG TABLET TO MAKE TOTAL DAILY DOSE OF 30 MG citalopram 20 mg Tablet 20 mg PO DAILY Rx Instructions: TAKES WITH 10 MG TABLET TO MAKE TOTAL DAILY DOSE OF 30 MG fluphenazine HCl 10 mg Tablet 20 mg PO DAILY levothyroxine 125 mcg Tablet 125 mcg PO DAILY metformin 500 mg Tablet 500 mg PO DAILY cyanocobalamin (vitamin B-12) 1,000 mcg Tablet 1,000 mcg PO DAILY docusate sodium 100 mg Capsule 100 mg PO BID sennosides [senna] 8.6 mg Tablet 8.6 mg PO BEDTIME loperamide 2 mg Tablet 2 mg PO Q4H PRN (Reason: Loose Stool) Rx Instructions: administer after each loose stool until symptoms controlled; do not exceed 8 mg per 24 hrs acetaminophen 325 mg Tablet 650 mg PO Q4H PRN (Reason: pain/fever) alum-mag hydroxide-simeth 200-200-20 mg/5 mL Suspension 30 ml PO Q4H PRN (Reason: GI UPSET) magnesium hydroxide [Milk of Magnesia] 400 mg/5 mL Suspension 30 ml PO DAILY PRN (Reason: Constipation) polyethylene glycol 3350 [Miralax] 17 gram/dose Powder 17 g PO DAILY PRN (Reason: Constipation) Discharge Orders: Discharge Order (Routine); Ordered 03/10/22 Ordered By: Bianka Blake Diet: Advance to usual diet Activity on Discharge: As tolerated Stand Alone Forms: Patient Portal Discharge page Care Plan Goals: Complete course of tamiflu and antibiotics Health Concerns: Influenza A Community acquired pneumonia Plan of Treatment: Influenza Continue tamiflu x 1 day Robitussin prn for cough Pneumonia -Complete course of antibiotics with 2 days augmentin and 4 doses doxycycline Assessment: Acute hypoxemic respiratory failure secondary to influenza and pneumonia has resolved. Treated for 5 days for pneumonia and should complete treatment as above. Pt would have completed 5 days of tamiflu but refused the medication one day so needs one additional dose tomorrow. She no longer requires isolation as she is 8 days out from symptom onset. Discharge back to [facility].
[2022-03-10 15:49] VITALS: BP 135/88; PULSE 87; RESP 19; TEMP 36.9; O2SAT 98
--- NOTE | 2022-03-10 16:10 | MHC.CM.PN ---
PT IS READY TO DC TODAY CM CALLED [facility]QUE[facility] AND SPOKE TO RN SHE WAS INFORMED PT WOULD RETURN TODAY DC SUMMARY FAXED TO HER AT [phone] BLS TRANSPORT ARRANGED [facility]IA [facility] AT 1800 HOURS
[2022-03-10 16:51] LABS: Glucose, Whole Blood 115 mg/dL (60-115)
== END 2022-03-10 18:48 | DRG 193 ==
LOC: HO.ED 15:43 → HO.EDOVER 16:53 → HO.IMC 03-07 18:57
PROVIDERS: Internal Medicine; Physician Assistant; Physician Assistant Medical; Admitting Provider Nurse Practitioner Acute Care; Emergency Provider Emergency Medicine; PCP Internal Medicine; Visit Provider Physician Assistant
DX: J10.08 Influenza due to other identified influenza virus with other specified pneumonia (principal); J96.01 Acute respiratory failure with hypoxia; E87.1 Hypo-osmolality and hyponatremia; J12.9 Viral pneumonia, unspecified; F03.90 Unspecified dementia, unspecified severity, without behavioral disturbance, psychotic disturbance, mood disturbance, and anxiety; E03.9 Hypothyroidism, unspecified; F20.9 Schizophrenia, unspecified; E11.9 Type 2 diabetes mellitus without complications; F17.200 Nicotine dependence, unspecified, uncomplicated; Z71.6 Tobacco abuse counseling; Z79.84 Long term (current) use of oral hypoglycemic drugs; Z79.890 Hormone replacement therapy; Z79.899 Other long term (current) drug therapy
CPT/HCPCS: 0241U; 36415; 71045; 80048; 80053; 82947; 83605; 83880; 84145; 84484; 85025; 85027; 85610; 85730; 87040; 93005; 94640; 99285; J0696; J1200

== ENCOUNTER 2022-10-04 12:59 | Inpatient (IN) | payer MEDICARE, MEDICAID, SELFPAY ==
[2022-10-04] VITALS (12 sets, daily range): BP systolic 113–161; BP diastolic 56–92; PULSE 55–115; RESP 14–20; TEMP 36.7–38.7; O2SAT 88–96; BMI 22.0
--- NOTE | 2022-10-04 13:44 | ED.GENADULT ---
HPI - General Adult General Chief complaint: General Medical Stated complaint: 3 Time Seen by Provider: 10/04/22 13:32 Source: EMS Mode of arrival: EMS Limitations: altered mental status History of Present Illness HPI narrative: Patient comes emergency room from [facility]. Patient had 1 unwitnessed fall. EMS reports that the staff informed them that the patient has had 2 episodes of urinary incontinence which is unusual for the patient. Patient is more altered than usual. Usually patient is able to get up and walk to the bathroom, today she is too weak. Patient complaining that she does not feel well. According to EMS, they did not get a report from the staff regarding medical history, the only got some papers with the medications that she takes. Related Data Home Medications Medication Instructions Recorded Confirmed acetaminophen 325 mg tablet 650 mg PO Q4H PRN pain/fever 03/05/22 10/04/22 aluminum-mag hydroxide-simethicone 30 ml PO Q4H PRN GI UPSET 03/05/22 10/04/22 200 mg-200 mg-20 mg/5 mL oral susp benztropine 1 mg tablet 1 mg PO DAILY 03/05/22 10/04/22 citalopram 10 mg tablet 10 mg PO DAILY 03/05/22 10/04/22 citalopram 20 mg tablet 20 mg PO DAILY 03/05/22 10/04/22 cyanocobalamin (vitamin B-12) 1,000 mcg PO DAILY 03/05/22 10/04/22 1,000 mcg tablet docusate sodium 100 mg capsule 100 mg PO BID 03/05/22 10/04/22 fluphenazine HCl 10 mg tablet 20 mg PO DAILY 03/05/22 10/04/22 levothyroxine 125 mcg tablet 125 mcg PO DAILY@0600 03/05/22 10/04/22 loperamide 2 mg tablet 2 mg PO Q4H PRN Loose Stool 03/05/22 10/04/22 magnesium hydroxide 400 mg/5 mL 30 ml PO DAILY PRN Constipation 03/05/22 10/04/22 oral suspension (Milk of Magnesia) metformin 500 mg tablet 500 mg PO DAILY 03/05/22 10/04/22 polyethylene glycol 3350 17 17 g PO DAILY PRN Constipation 03/05/22 10/04/22 gram/dose oral powder (Miralax) sennosides 8.6 mg tablet (senna) 8.6 mg PO BEDTIME 03/05/22 10/04/22 benzonatate 100 mg capsule 100 mg PO BEDTIME 10/04/22 10/04/22 fluphenazine HCl 10 mg tablet 10 mg PO BEDTIME 10/04/22 10/04/22 fluticasone furoate 100 1 ea inhalation DAILY 10/04/22 10/04/22 mcg-vilanterol 25 mcg/dose inhalation powder (Breo Ellipta) lorazepam 0.5 mg tablet 0.5 mg PO BID 10/04/22 10/04/22 trazodone 50 mg tablet 25 mg PO BEDTIME 10/04/22 10/04/22 Allergies Allergy/AdvReac Type Severity Reaction Status Date / Time No Known Allergies Allergy Verified 10/04/22 13:19 Review of Systems Review of Systems: Yes Unobtainable due to mental condition PMFSH Past Medical History Medical History Dementia Depression Diabetes mellitus Hypothyroidism Schizophrenia Social History Social History Household Members: Caregiver Housing: Residential Unable to assess alcohol history related to: Unknown Alcohol intake: former Patient Tobacco Use Status: Tobacco use Unknown Smoked in Last 30 Days: No Use of substances other than those prescribed or required for medical reasons: No Advance Directives: No Advance Directives Information Provided: No Physical Exam ED Vital Signs: Vital Signs - 24 hr 10/04/22 13:19 10/04/22 13:58 10/04/22 14:44 Temperature 101.7 F H 101.3 F H 101.3 F H Pulse Rate 81 115 H Respiratory Rate 16 18 Blood Pressure 148/56 H 161/92 H Pulse Oximetry 91 L 90 L Oxygen Delivery Method Nasal Cannula Nasal Cannula Oxygen Flow Rate 10/04/22 16:15 10/04/22 16:53 10/04/22 15:15 Temperature 98.8 F 99.1 F Pulse Rate 64 Respiratory Rate 14 Blood Pressure 129/67 Pulse Oximetry 95 Oxygen Delivery Method Nasal Cannula Oxygen Flow Rate 3 10/04/22 17:05 10/04/22 17:19 10/04/22 19:19 Temperature 98.1 F 98.3 F 98.6 F Pulse Rate 63 61 55 Respiratory Rate 16 16 14 Blood Pressure 128/72 113/84 142/61 H Pulse Oximetry 92 92 96 Oxygen Delivery Method Nasal Cannula Nasal Cannula Nasal Cannula Oxygen Flow Rate 3 3 2 BMI result Body Mass Index 22.0 Const Other: Appearance: Alert. Oriented x1 Eyes: Pupils equal, round and reactive to light. ENT: Pharynx normal. Neck: Normal inspection. Neck supple. No lymph nodes noted. No crepitus CVS: Normal heart rate and rhythm. Pulses normal. Normal S1 and S2 Respiratory: No respiratory distress. Right lower lobe crackles, no wheezing bilaterally, oxygen saturation 90-91% on 2 L. Abdomen: Soft and nontender. No rigidity. No distention. Skin: Skin warm and dry. Slightly pale, Normal skin turgor. Extremities: No lower extremity edema. No Lacerations. No Rash Neuro: Oriented x1 No motor deficit. No sensory deficit. Moving all extremities. No slurred speech. CN 2 through 12 grossly intact Psych: Anxious, confused Course Course Course Narrative: -all of patient's labs are pending Medications Administered Discontinued Medications Generic Name Dose Route Start Last Admin Trade Name Freq PRN Reason Stop Dose Admin Acetaminophen 975 mg 10/04/22 13:51 10/04/22 14:09 Acetaminophen 325 Mg Tablet PO 10/04/22 13:52 975 mg ONCE ONE Administration Sodium Chloride 1,914 mls @ 1,914 mls/hr 10/04/22 13:39 10/04/22 17:00 Ns 30 ml/kg infuse over 1 hr (1914 ml) 10/04/22 14:38 Infused IV Infusion .Q1H STA Ceftriaxone Sodium 1 gm/ 50 mls @ 100 mls/hr 10/04/22 13:39 10/04/22 14:48 Sodium Chloride IV 10/04/22 14:08 Infused ONCE ONE Infusion Medical Decision Making Medical Decision Making MDM Narrative: -on arrival, noted that the patient has a fever 103.7. Blood pressure is stable, 148/56, not tachycardic, pulse 81. -of patient's labs and imaging are pending. -patient receiving empiric treatment with IV fluids an antibiotic (ceftriaxone) to cover for both respiratory/UTI -admission is considered -my interpretation of chest x-ray, right lower lobe pneumonia. Patient's oxygen saturation 90% on 2 L, patient is not oxygen dependent. -urinalysis pending. Patient has already been covered for UTI -my interpretation of blood work: White blood cell count is normal but there are 47% bands, lactic acid 0.7 -my interpretation of CT scan of the head, no intracranial bleed Discussed the patient with Dr. Julian, patient being admitted Differential Diagnosis Differential Diagnoses: The differential diagnosis associated with the presentation includes (UTI, pneumonia, metabolic encephalopathy, intracranial bleed) Admission/Observation Consideration of admission/observation: Escalation of care including admission/observation considered Consult Healthcare Provider Management of the patient was discussed with: Hospitalist Lab Data [facility] Lab Attestation statement: I reviewed the patient's lab results. 10/04/22 14:12 10/04/22 14:12 Labs: Lab Results 10/04/22 10/04/22 10/04/22 Range/Units 14:12 14:12 14:12 WBC 6.7 (4.8-10.8) X10*3/uL RBC 3.97 L (4.20-5.50) X10*6/uL Hgb 11.1 L (12.0-16.0) g/dl Hct 32.3 L (37.0-47.0) % MCV 81.4 (80.0-98.0) fL MCH 28.0 (27.0-33.0) pg MCHC 34.4 (31.0-35.0) g/dl RDW 12.4 (11.0-16.0) % Plt Count 185 D (160-400) X10*3/uL MPV 9.8 (9.4-12.3) fL Immature Gran % (Auto) Cancelled Neut % (Auto) Cancelled Lymph % (Auto) Cancelled [place] % (Auto) Cancelled Eos % (Auto) Cancelled Baso % (Auto) Cancelled Lymph # (Auto) Cancelled [place] # (Auto) Cancelled Eos # (Auto) Cancelled Baso # (Auto) Cancelled Abs Immat Gran (auto) Cancelled Absolute Neuts (auto) Cancelled Absolute Nucleated RBC 0.000 (0.0-0.012) X10*3/uL Nucleated RBC % (auto) 0.0 (0.0-0.2) /100WBC Neutrophils % (Manual) 34 L (45-73) % Band Neutrophils % 47 H (3-5) % Lymphocytes % (Manual) 7 L (20-40) % Monocytes % (Manual) 9 (2-11) % Eosinophils % (Manual) 1 (0-4) % Basophils % (Manual) 1 (0-2) % Metamyelocytes % 1 % Abs Neuts (Manual) 5.4 (2.0-8.3) X10*3/uL Lymphocytes # (Manual) 0.5 L (1.2-4.9) X10*3/uL Monocytes # (Manual) 0.6 (0.1-1.2) X10*3/uL Eosinophils # (Manual) 0.1 (0.0-0.4) X10*3/uL Basophils # (Manual) 0.1 (0.0-0.2) X10*3/uL Metamyelocytes # 0.1 X10*3/uL Platelet Estimate NORMAL (NORMAL) Plt Morphology Comment NORMAL RBC Morphology NOTED Tear Drop Cells 1+ (0-2) /OIF Maty Cells 2+ (3-5) /OIF PT (10.0-13.1) SEC INR (0.9-1.1) VBG pH (7.32-7.43) VBG pCO2 mmHg VBG pO2 mmHg VBG HCO3 (22-26) mmol/L VBG O2 Saturation % VBG Base Excess mmol/L Sodium 135 (135-145) mmol/L Potassium 3.6 (3.3-5.1) mmol/L Chloride 101 (96-108) mmol/L Carbon Dioxide 23 (22-29) mmol/L Anion Gap 15 (12-20) BUN 28 H (9-16) mg/dL Creatinine 1.03 (0.5-1.4) mg/dL Estim Creat Clear Calc 47.3 Estimated GFR 53 Random Glucose 116 H (60-115) mg/dL Lactic Acid (0.5-2.0) mmol/L Calcium 11.4 H D (8.4-10.2) mg/dL Magnesium (1.6-2.6) mg/dL Total Bilirubin (0.0-1.0) mg/dL Direct Bilirubin (0.0-0.5) mg/dL AST (5-31) U/L ALT (0-31) U/L Alkaline Phosphatase (39-117) U/L Troponin I High Sens (<3.5-17.0) ng/L B-Natriuretic Peptide (<100) pg/mL Total Protein (6.5-8.0) g/dL Albumin (3.5-5.0) g/dL COVID-19 (BLESSING) Negative (Negative) COVID-19 Clin Com See Note Influenza Type A (WENDY) (Negative) Influenza Type B (WENDY) (Negative) Influenza A & B Note 10/04/22 10/04/22 10/04/22 Range/Units 14:12 14:12 14:12 WBC (4.8-10.8) X10*3/uL RBC (4.20-5.50) X10*6/uL Hgb (12.0-16.0) g/dl Hct (37.0-47.0) % MCV (80.0-98.0) fL MCH (27.0-33.0) pg MCHC (31.0-35.0) g/dl RDW (11.0-16.0) % Plt Count (160-400) X10*3/uL MPV (9.4-12.3) fL Immature Gran % (Auto) Neut % (Auto) Lymph % (Auto) [place] % (Auto) Eos % (Auto) Baso % (Auto) Lymph # (Auto) [place] # (Auto) Eos # (Auto) Baso # (Auto) Abs Immat Gran (auto) Absolute Neuts (auto) Absolute Nucleated RBC (0.0-0.012) X10*3/uL Nucleated RBC % (auto) (0.0-0.2) /100WBC Neutrophils % (Manual) (45-73) % Band Neutrophils % (3-5) % Lymphocytes % (Manual) (20-40) % Monocytes % (Manual) (2-11) % Eosinophils % (Manual) (0-4) % Basophils % (Manual) (0-2) % Metamyelocytes % % Abs Neuts (Manual) (2.0-8.3) X10*3/uL Lymphocytes # (Manual) (1.2-4.9) X10*3/uL Monocytes # (Manual) (0.1-1.2) X10*3/uL Eosinophils # (Manual) (0.0-0.4) X10*3/uL Basophils # (Manual) (0.0-0.2) X10*3/uL Metamyelocytes # X10*3/uL Platelet Estimate (NORMAL) Plt Morphology Comment RBC Morphology Tear Drop Cells /OIF [place] Cells /OIF PT 12.8 (10.0-13.1) SEC INR 1.1 (0.9-1.1) VBG pH (7.32-7.43) VBG pCO2 mmHg VBG pO2 mmHg VBG HCO3 (22-26) mmol/L VBG O2 Saturation % VBG Base Excess mmol/L Sodium (135-145) mmol/L Potassium (3.3-5.1) mmol/L Chloride (96-108) mmol/L Carbon Dioxide (22-29) mmol/L Anion Gap (12-20) BUN (9-16) mg/dL Creatinine (0.5-1.4) mg/dL Estim Creat Clear Calc Estimated GFR Random Glucose (60-115) mg/dL Lactic Acid 0.7 (0.5-2.0) mmol/L Calcium (8.4-10.2) mg/dL Magnesium 1.7 (1.6-2.6) mg/dL Total Bilirubin 0.5 (0.0-1.0) mg/dL Direct Bilirubin 0.2 (0.0-0.5) mg/dL AST 12 (5-31) U/L ALT 11 (0-31) U/L Alkaline Phosphatase 74 (39-117) U/L Troponin I High Sens (<3.5-17.0) ng/L B-Natriuretic Peptide (<100) pg/mL Total Protein 7.2 (6.5-8.0) g/dL Albumin 3.8 (3.5-5.0) g/dL COVID-19 (BLESSING) (Negative) COVID-19 Clin Com Influenza Type A (WENDY) (Negative) Influenza Type B (WENDY) (Negative) Influenza A & B Note 10/04/22 10/04/22 10/04/22 Range/Units 14:12 14:12 14:12 WBC (4.8-10.8) X10*3/uL RBC (4.20-5.50) X10*6/uL Hgb (12.0-16.0) g/dl Hct (37.0-47.0) % MCV (80.0-98.0) fL MCH (27.0-33.0) pg MCHC (31.0-35.0) g/dl RDW (11.0-16.0) % Plt Count (160-400) X10*3/uL MPV (9.4-12.3) fL Immature Gran % (Auto) Neut % (Auto) Lymph % (Auto) [place] % (Auto) Eos % (Auto) Baso % (Auto) Lymph # (Auto) [place] # (Auto) Eos # (Auto) Baso # (Auto) Abs Immat Gran (auto) Absolute Neuts (auto) Absolute Nucleated RBC (0.0-0.012) X10*3/uL Nucleated RBC % (auto) (0.0-0.2) /100WBC Neutrophils % (Manual) (45-73) % Band Neutrophils % (3-5) % Lymphocytes % (Manual) (20-40) % Monocytes % (Manual) (2-11) % Eosinophils % (Manual) (0-4) % Basophils % (Manual) (0-2) % Metamyelocytes % % Abs Neuts (Manual) (2.0-8.3) X10*3/uL Lymphocytes # (Manual) (1.2-4.9) X10*3/uL Monocytes # (Manual) (0.1-1.2) X10*3/uL Eosinophils # (Manual) (0.0-0.4) X10*3/uL Basophils # (Manual) (0.0-0.2) X10*3/uL Metamyelocytes # X10*3/uL Platelet Estimate (NORMAL) Plt Morphology Comment RBC Morphology Tear Drop Cells /OIF Maty Cells /OIF PT (10.0-13.1) SEC INR (0.9-1.1) VBG pH (7.32-7.43) VBG pCO2 mmHg VBG pO2 mmHg VBG HCO3 (22-26) mmol/L VBG O2 Saturation % VBG Base Excess mmol/L Sodium (135-145) mmol/L Potassium (3.3-5.1) mmol/L Chloride (96-108) mmol/L Carbon Dioxide (22-29) mmol/L Anion Gap (12-20) BUN (9-16) mg/dL Creatinine (0.5-1.4) mg/dL Estim Creat Clear Calc Estimated GFR Random Glucose (60-115) mg/dL Lactic Acid (0.5-2.0) mmol/L Calcium (8.4-10.2) mg/dL Magnesium (1.6-2.6) mg/dL Total Bilirubin (0.0-1.0) mg/dL Direct Bilirubin (0.0-0.5) mg/dL AST (5-31) U/L ALT (0-31) U/L Alkaline Phosphatase (39-117) U/L Troponin I High Sens 3.1 (<3.5-17.0) ng/L B-Natriuretic Peptide 42 (<100) pg/mL Total Protein (6.5-8.0) g/dL Albumin (3.5-5.0) g/dL COVID-19 (BLESSING) (Negative) COVID-19 Clin Com Influenza Type A (WENDY) Negative (Negative) Influenza Type B (WENDY) Negative (Negative) Influenza A & B Note See Note 10/04/22 Range/Units 14:18 WBC (4.8-10.8) X10*3/uL RBC (4.20-5.50) X10*6/uL Hgb (12.0-16.0) g/dl Hct (37.0-47.0) % MCV (80.0-98.0) fL MCH (27.0-33.0) pg MCHC (31.0-35.0) g/dl RDW (11.0-16.0) % Plt Count (160-400) X10*3/uL MPV (9.4-12.3) fL Immature Gran % (Auto) Neut % (Auto) Lymph % (Auto) Canyon % (Auto) Eos % (Auto) Baso % (Auto) Lymph # (Auto) [place] # (Auto) Eos # (Auto) Baso # (Auto) Abs Immat Gran (auto) Absolute Neuts (auto) Absolute Nucleated RBC (0.0-0.012) X10*3/uL Nucleated RBC % (auto) (0.0-0.2) /100WBC Neutrophils % (Manual) (45-73) % Band Neutrophils % (3-5) % Lymphocytes % (Manual) (20-40) % Monocytes % (Manual) (2-11) % Eosinophils % (Manual) (0-4) % Basophils % (Manual) (0-2) % Metamyelocytes % % Abs Neuts (Manual) (2.0-8.3) X10*3/uL Lymphocytes # (Manual) (1.2-4.9) X10*3/uL Monocytes # (Manual) (0.1-1.2) X10*3/uL Eosinophils # (Manual) (0.0-0.4) X10*3/uL Basophils # (Manual) (0.0-0.2) X10*3/uL Metamyelocytes # X10*3/uL Platelet Estimate (NORMAL) Plt Morphology Comment RBC Morphology Tear Drop Cells /OIF Newcastle Cells /OIF PT (10.0-13.1) SEC INR (0.9-1.1) VBG pH 7.38 (7.32-7.43) VBG pCO2 43 mmHg VBG pO2 38 mmHg VBG HCO3 26 (22-26) mmol/L VBG O2 Saturation 62.0 % VBG Base Excess 1.1 mmol/L Sodium (135-145) mmol/L Potassium (3.3-5.1) mmol/L Chloride (96-108) mmol/L Carbon Dioxide (22-29) mmol/L Anion Gap (12-20) BUN (9-16) mg/dL Creatinine (0.5-1.4) mg/dL Estim Creat Clear Calc Estimated GFR Random Glucose (60-115) mg/dL Lactic Acid (0.5-2.0) mmol/L Calcium (8.4-10.2) mg/dL Magnesium (1.6-2.6) mg/dL Total Bilirubin (0.0-1.0) mg/dL Direct Bilirubin (0.0-0.5) mg/dL AST (5-31) U/L ALT (0-31) U/L Alkaline Phosphatase (39-117) U/L Troponin I High Sens (<3.5-17.0) ng/L B-Natriuretic Peptide (<100) pg/mL Total Protein (6.5-8.0) g/dL Albumin (3.5-5.0) g/dL COVID-19 (BLESSING) (Negative) COVID-19 Clin Com Influenza Type A (WENDY) (Negative) Influenza Type B (WENDY) (Negative) Influenza A & B Note Independent Interpretation I performed an independent interpretation of an: Plain X-Ray and CT Scan Radiology Impression Discussion of test interpretation with radiology: I have reviewed the radiologist's reading. Radiologist Impression: FINDINGS: Head: There is no evidence of acute intracranial hemorrhage or territorial infarction. No abnormal mass effect or midline shift is seen. [place] to white matter differentiation is well preserved. No extra-axial fluid collections are identified. No hydrocephalus. Proportional prominence of the ventricles and sulcal spaces is consistent with mild volume loss. Patchy periventricular and deep white matter hypoattenuation is consistent with moderate small vessel ischemic changes. No acute osseous or soft tissue abnormality. Small excrescence along the inner table of the left frontal bone is unchanged. The mastoid air cells and visualized portions of the paranasal sinuses are well aerated. Cervical spine: There is anatomic alignment of the vertebral bodies and posterior elements. The atlantoaxial and atlantooccipital articulations are intact. Vertebral body heights are maintained. There is multilevel intervertebral disc space narrowing with endplate osteophyte formation and facet arthropathy. This is most evident at C5-C6. No evidence of acute fracture. No prevertebral soft tissue swelling. Mild emphysema at the lung apices. Surgical clips in the region of the thyroid gland.. CT/CT head/brain wo IV con IMPRESSION: 1.? No acute intracranial finding. Chronic volume loss with small vessel ischemic change. 2.? No acute fracture or malalignment of the cervical spine. Mild degenerative changes. ? FINDINGS: There is a region of airspace disease seen within the right lower lung consistent with pneumonia. No pneumothorax identified. No significant pleural effusion is seen. Heart normal size. No evidence of pulmonary edema. Old healed left rib fractures present. XR/XR chest 1V IMPRESSION: Right lower lobe pneumonia. Critical Care Time Critical Care Time Critical Care Time: Yes Total Critical Care Time: 70 Attestation: I have personally provided critical care time. Time includes review of lab data, radiology results, discussion with consultants, and monitoring for potential decompensation. Intervention performed as documented. Discharge Plan Discharge Clinical Impression: Pneumonia Patient Disposition: Admitted As Inpatient Prescriptions: No Action benztropine 1 mg Tablet 1 mg PO DAILY citalopram 10 mg Tablet 10 mg PO DAILY Rx Instructions: TAKES TOGETHER WITH 20 MG TABLET TO MAKE TOTAL DAILY DOSE OF 30 MG citalopram 20 mg Tablet 20 mg PO DAILY Rx Instructions: TAKES WITH 10 MG TABLET TO MAKE TOTAL DAILY DOSE OF 30 MG fluphenazine HCl 10 mg Tablet 20 mg PO DAILY levothyroxine 125 mcg Tablet 125 mcg PO DAILY@0600 metformin 500 mg Tablet 500 mg PO DAILY cyanocobalamin (vitamin B-12) 1,000 mcg Tablet 1,000 mcg PO DAILY docusate sodium 100 mg Capsule 100 mg PO BID sennosides [senna] 8.6 mg Tablet 8.6 mg PO BEDTIME loperamide 2 mg Tablet 2 mg PO Q4H PRN (Reason: Loose Stool) Rx Instructions: administer after each loose stool until symptoms controlled; do not exceed 8 mg per 24 hrs acetaminophen 325 mg Tablet 650 mg PO Q4H PRN (Reason: pain/fever) alum-mag hydroxide-simeth 200-200-20 mg/5 mL Suspension 30 ml PO Q4H PRN (Reason: GI UPSET) magnesium hydroxide [Milk of Magnesia] 400 mg/5 mL Suspension 30 ml PO DAILY PRN (Reason: Constipation) polyethylene glycol 3350 [Miralax] 17 gram/dose Powder 17 g PO DAILY PRN (Reason: Constipation) trazodone 50 mg tablet 25 mg PO BEDTIME fluphenazine HCl 10 mg tablet 10 mg PO BEDTIME lorazepam 0.5 mg tablet 0.5 mg PO BID benzonatate 100 mg Capsule 100 mg PO BEDTIME fluticasone furoate-vilanterol [Breo Ellipta] 100-25 mcg/dose blister with device 1 ea inhalation DAILY
--- NOTE | 2022-10-04 14:14 | PC.NURSE ---
Patient alert but confused. Arrived from [facility]. Per ems patient had an unwitnessed fall and is not at baseline. Per facility incontinent x2. Patient unable to recall if she hit her head, restless trying to get out of bed. Easily re -directable. Blood cultures drawn x 2 per order. Fluids running per order and IV abt started after blood cultures obtained. rectal temp 101.3, tylenol given per order.
--- NOTE | 2022-10-04 14:54 | PHA.MEDREC ---
Pharmacy Consult ? Medication Reconciliation Pharmacy has completed the medication reconciliation. Patient had a med list from [facility].
--- NOTE | 2022-10-04 14:56 | PC.NURSE ---
Patient resting quietly at this time. VSS. IV fluids running as ordered
--- NOTE | 2022-10-04 15:31 | PC.NURSE ---
2nd set of blood cultures drawn at 1412, IV abt ceftriaxone given at 1415 after blood cultures were drawn
--- NOTE | 2022-10-04 19:29 | PC.NURSE ---
assumed care of pt at 1900 - pt resting comfortably on stretcher, alert but confused, responding appropriately. #20g iv line LAC placed and wrapped, vital signs updated, pt straight cath'd for urine per MD request. MD Julian at bedside assessing pt. will continue to monitor.
--- NOTE | 2022-10-04 19:32 | PM.IMHP ---
History of Present Illness Date of Service: 10/04/22 Chief Complaint: AMS This is a 72-year-old female with pertinent history of hypothyroidism, ngn-txucxnz-[id number] diabetes mellitus, mood disorder, tobacco use disorder, dementia who sent to the emergency department for evaluation of confusion. Patient is a resident of [facility]. She was noted to be confused on the day of presentation and weak. Patient is a poor historian and history is obtained by ER provider and chart review. Patient states that she has trouble breathing and is having productive cough. As per the ER provider, patient also had 2 episodes of urinary incontinence. She had 1 episode of unwitnessed fall due to weakness. Patient states that she will does not feel well. Unable to obtain review of systems. In the emergency department, patient was found to be febrile. Imaging with right-sided pneumonia. Bands present on differential white count Review of Systems Review of Systems: Yes Unobtainable due to mental status PMFSH Medical History Dementia Depression Diabetes mellitus Hypothyroidism Schizophrenia Pertinent family history: Unable to obtain Social History Household Members: Caregiver Housing: Group Home Unable to assess alcohol history related to: Unknown Alcohol intake: former Patient Tobacco Use Status: Tobacco use Unknown Smoked in Last 30 Days: No Use of substances other than those prescribed or required for medical reasons: No Advance Directives: No Advance Directives Information Provided: No Meds Allergies Allergy/AdvReac Type Severity Reaction Status Date / Time No Known Allergies Allergy Verified 10/04/22 13:19 Active Medications: Current Medications Acetaminophen (Acetaminophen 325 Mg Tablet) 650 mg PO Q6H PRN PRN Reason: Pain, Mild (Pain Scale 1-3) Enoxaparin Sodium (Enoxaparin Sodium 40 Mg/0.4 Ml Syringe) 40 mg SUBCUT Q24H BARRY Ceftriaxone Sodium 1 gm/ (Sodium Chloride) 50 mls @ 100 mls/hr IV Q24H BARRY Azithromycin 500 mg/ Sodium (Chloride) 250 mls @ 125 mls/hr IV Q24H BARRY Melatonin (Melatonin 3 Mg Tablet) 6 mg PO BEDTIME PRN PRN Reason: Insomnia Ondansetron HCl (Ondansetron Hcl 4 Mg/2 Ml Vial) 4 mg IVPUSH Q8H PRN PRN Reason: Nausea and Vomiting Sodium Chloride (0.9 % Sodium Chloride Flush 3 Ml Syringe) [facility] Home Medications Medication Instructions Recorded Confirmed Last Taken Type acetaminophen 325 mg tablet 650 mg PO Q4H PRN pain/fever 03/05/22 10/04/22 Unknown History aluminum-mag hydroxide-simethicone 30 ml PO Q4H PRN GI UPSET 03/05/22 10/04/22 Unknown History 200 mg-200 mg-20 mg/5 mL oral susp benztropine 1 mg tablet 1 mg PO DAILY 03/05/22 10/04/22 03/04/22 History citalopram 10 mg tablet 10 mg PO DAILY 03/05/22 10/04/22 03/04/22 History citalopram 20 mg tablet 20 mg PO DAILY 03/05/22 10/04/22 03/04/22 History cyanocobalamin (vitamin B-12) 1,000 mcg PO DAILY 03/05/22 10/04/22 03/04/22 History 1,000 mcg tablet docusate sodium 100 mg capsule 100 mg PO BID 03/05/22 10/04/22 03/04/22 History fluphenazine HCl 10 mg tablet 20 mg PO DAILY 03/05/22 10/04/22 03/04/22 History levothyroxine 125 mcg tablet 125 mcg PO DAILY@0600 03/05/22 10/04/22 03/04/22 History loperamide 2 mg tablet 2 mg PO Q4H PRN Loose Stool 03/05/22 10/04/22 Unknown History magnesium hydroxide 400 mg/5 mL 30 ml PO DAILY PRN Constipation 03/05/22 10/04/22 Unknown History oral suspension (Milk of Magnesia) metformin 500 mg tablet 500 mg PO DAILY 03/05/22 10/04/22 03/04/22 History polyethylene glycol 3350 17 17 g PO DAILY PRN Constipation 03/05/22 10/04/22 Unknown History gram/dose oral powder (Miralax) sennosides 8.6 mg tablet (senna) 8.6 mg PO BEDTIME 03/05/22 10/04/22 03/03/22 History benzonatate 100 mg capsule 100 mg PO BEDTIME 10/04/22 10/04/22 Unknown History fluphenazine HCl 10 mg tablet 10 mg PO BEDTIME 10/04/22 10/04/22 Unknown History fluticasone furoate 100 1 ea inhalation DAILY 10/04/22 10/04/22 Unknown History mcg-vilanterol 25 mcg/dose inhalation powder (Breo Ellipta) lorazepam 0.5 mg tablet 0.5 mg PO BID 10/04/22 10/04/22 Unknown History trazodone 50 mg tablet 25 mg PO BEDTIME 10/04/22 10/04/22 Unknown History Physical Exam Vital Signs and Narrative: Vital Signs: Last Vital Signs Temp 98.6 F 10/04/22 19:19 Pulse 55 10/04/22 19:19 Resp 14 10/04/22 19:19 BP 142/61 H 10/04/22 19:19 Pulse Ox 96 10/04/22 19:19 O2 Del Method Nasal Cannula 10/04/22 19:19 O2 Flow Rate 2 10/04/22 19:19 Oxygen Flow Rate 2 10/04/22 13:19 BMI result Body Mass Index 22.0 Elderly female lying in bed on supplemental oxygen Neck supple, no JVD Regular rate and rhythm, S1-S2 heard Right-sided crackles without wheezing Abdomen soft nontender, no guarding, no rigidity Patient is awake, alert and oriented to self, disoriented to place, time and person ; no focal motor deficit Psych: Normal mood No pedal edema Results Labs 10/04/22 14:12 10/04/22 14:12 Labs: Laboratory Results - last 24 hr 10/04/22 10/04/22 10/04/22 14:12 14:12 14:12 MCV 81.4 MCH 28.0 MCHC 34.4 RDW 12.4 Plt Count 185 D MPV 9.8 Immature Gran % (Auto) Cancelled Neut % (Auto) Cancelled Lymph % (Auto) Cancelled [place] % (Auto) Cancelled Eos % (Auto) Cancelled Baso % (Auto) Cancelled Lymph # (Auto) Cancelled [place] # (Auto) Cancelled Eos # (Auto) Cancelled Baso # (Auto) Cancelled Abs Immat Gran (auto) Cancelled Absolute Neuts (auto) Cancelled Absolute Nucleated RBC 0.000 Nucleated RBC % (auto) 0.0 Neutrophils % (Manual) 34 L Band Neutrophils % 47 H Lymphocytes % (Manual) 7 L Monocytes % (Manual) 9 Eosinophils % (Manual) 1 Basophils % (Manual) 1 Metamyelocytes % 1 Abs Neuts (Manual) 5.4 Lymphocytes # (Manual) 0.5 L Monocytes # (Manual) 0.6 Eosinophils # (Manual) 0.1 Basophils # (Manual) 0.1 Metamyelocytes # 0.1 Platelet Estimate NORMAL Plt Morphology Comment NORMAL RBC Morphology NOTED Tear Drop Cells 1+ (0-2) [place] Cells 2+ (3-5) PT INR VBG pH VBG pCO2 VBG pO2 VBG HCO3 VBG O2 Saturation VBG Base Excess Anion Gap 15 Estim Creat Clear Calc 47.3 Estimated GFR 53 Random Glucose 116 H Lactic Acid Calcium 11.4 H D Magnesium Total Bilirubin Direct Bilirubin AST ALT Alkaline Phosphatase Troponin I High Sens B-Natriuretic Peptide Total Protein Albumin COVID-19 (BLESSING) Negative COVID-19 Clin Com See Note Influenza Type A (WENDY) Influenza Type B (WENDY) Influenza A & B Note 10/04/22 10/04/22 10/04/22 14:12 14:12 14:12 MCV MCH MCHC RDW Plt Count MPV Immature Gran % (Auto) Neut % (Auto) Lymph % (Auto) [place] % (Auto) Eos % (Auto) Baso % (Auto) Lymph # (Auto) [place] # (Auto) Eos # (Auto) Baso # (Auto) Abs Immat Gran (auto) Absolute Neuts (auto) Absolute Nucleated RBC Nucleated RBC % (auto) Neutrophils % (Manual) Band Neutrophils % Lymphocytes % (Manual) Monocytes % (Manual) Eosinophils % (Manual) Basophils % (Manual) Metamyelocytes % Abs Neuts (Manual) Lymphocytes # (Manual) Monocytes # (Manual) Eosinophils # (Manual) Basophils # (Manual) Metamyelocytes # Platelet Estimate Plt Morphology Comment RBC Morphology Tear Drop Cells [place] Cells PT 12.8 INR 1.1 VBG pH VBG pCO2 VBG pO2 VBG HCO3 VBG O2 Saturation VBG Base Excess Anion Gap Estim Creat Clear Calc Estimated GFR Random Glucose Lactic Acid 0.7 Calcium Magnesium 1.7 Total Bilirubin 0.5 Direct Bilirubin 0.2 AST 12 ALT 11 Alkaline Phosphatase 74 Troponin I High Sens B-Natriuretic Peptide Total Protein 7.2 Albumin 3.8 COVID-19 (BLESSING) COVID-19 Clin Com Influenza Type A (WENDY) Influenza Type B (WENDY) Influenza A & B Note 10/04/22 10/04/22 10/04/22 14:12 14:12 14:12 MCV MCH MCHC RDW Plt Count MPV Immature Gran % (Auto) Neut % (Auto) Lymph % (Auto) [place] % (Auto) Eos % (Auto) Baso % (Auto) Lymph # (Auto) [place] # (Auto) Eos # (Auto) Baso # (Auto) Abs Immat Gran (auto) Absolute Neuts (auto) Absolute Nucleated RBC Nucleated RBC % (auto) Neutrophils % (Manual) Band Neutrophils % Lymphocytes % (Manual) Monocytes % (Manual) Eosinophils % (Manual) Basophils % (Manual) Metamyelocytes % Abs Neuts (Manual) Lymphocytes # (Manual) Monocytes # (Manual) Eosinophils # (Manual) Basophils # (Manual) Metamyelocytes # Platelet Estimate Plt Morphology Comment RBC Morphology Tear Drop Cells Mat[place] Cells PT INR VBG pH VBG pCO2 VBG pO2 VBG HCO3 VBG O2 Saturation VBG Base Excess Anion Gap Estim Creat Clear Calc Estimated GFR Random Glucose Lactic Acid Calcium Magnesium Total Bilirubin Direct Bilirubin AST ALT Alkaline Phosphatase Troponin I High Sens 3.1 B-Natriuretic Peptide 42 Total Protein Albumin COVID-19 (BLESSING) COVID-19 Clin Com Influenza Type A (WENDY) Negative Influenza Type B (WENDY) Negative Influenza A & B Note See Note 10/04/22 14:18 MCV MCH MCHC RDW Plt Count MPV Immature Gran % (Auto) Neut % (Auto) Lymph % (Auto) [place] % (Auto) Eos % (Auto) Baso % (Auto) Lymph # (Auto) [place] # (Auto) Eos # (Auto) Baso # (Auto) Abs Immat Gran (auto) Absolute Neuts (auto) Absolute Nucleated RBC Nucleated RBC % (auto) Neutrophils % (Manual) Band Neutrophils % Lymphocytes % (Manual) Monocytes % (Manual) Eosinophils % (Manual) Basophils % (Manual) Metamyelocytes % Abs Neuts (Manual) Lymphocytes # (Manual) Monocytes # (Manual) Eosinophils # (Manual) Basophils # (Manual) Metamyelocytes # Platelet Estimate Plt Morphology Comment RBC Morphology Tear Drop Cells Maty Cells PT INR VBG pH 7.38 VBG pCO2 43 VBG pO2 38 VBG HCO3 26 VBG O2 Saturation 62.0 VBG Base Excess 1.1 Anion Gap Estim Creat Clear Calc Estimated GFR Random Glucose Lactic Acid Calcium Magnesium Total Bilirubin Direct Bilirubin AST ALT Alkaline Phosphatase Troponin I High Sens B-Natriuretic Peptide Total Protein Albumin COVID-19 (BLESSING) COVID-19 Clin Com Influenza Type A (WENDY) Influenza Type B (WENDY) Influenza A & B Note Imaging Radiologist's Impressions: Impressions Chest X-Ray 10/04/22 13:33 IMPRESSION: Right lower lobe pneumonia. Cervical Spine CT 10/04/22 16:53 IMPRESSION: 1. No acute intracranial finding. Chronic volume loss with small vessel ischemic change. 2. No acute fracture or malalignment of the cervical spine. Mild degenerative changes. Head CT 10/04/22 16:53 IMPRESSION: 1. No acute intracranial finding. Chronic volume loss with small vessel ischemic change. 2. No acute fracture or malalignment of the cervical spine. Mild degenerative changes. Assessment and Plan (1) Pneumonia: Status: Acute Plan This is a 72-year-old female with pertinent history of hypothyroidism, [id number]-bjfpytttf diabetes mellitus, mood disorder, tobacco use disorder who was sent to the emergency department for evaluation of confusion. #. Acute metabolic encephalopathy and acute hypoxemic respiratory failure in the setting of right-sided pneumonia. Will admit patient with supplemental oxygen. Initiating empiric IV antibiotics. Sputum culture and strep antigen pending. Resuscitated with IV crystalloids. Monitor oxygen saturation and wean as tolerated. Maintain oxygen saturation greater than 88% #. Ebh-odyzbja-oytnkubhb diabetes mellitus. Hold metformin. Initiating Accu-Cheks with sliding scale insulin #. Mood disorder. Continue home mood stabilizers #. Tobacco use disorder. Counseled regarding cessation. Offering nicotine patch while in the hospital #. COPD. No exacerbation during admission. Continue home inhaler. Rafa p.r.n. #. Hypothyroidism. On Synthroid DVT prophylaxis: Lovenox Full code Irregular diet Admit as inpatient and will require two night minimum hospital stay for IV antibiotics and supplemental oxygen Time Spent With Patient Time: Total time managing care of this patient today ____ minutes. Quality Stroke Does the patient have a stroke diagnosis?: No VTE Prior VTE?: No VTE Risk Level:: Medical - moderate - high VTE Device Contraindication: Treatment Not Indicated VTE Drug Contraindication: N/A - Med Ordered
--- NOTE | 2022-10-04 20:17 | PC.NURSE ---
Pt refused medication.
--- NOTE | 2022-10-04 20:18 | PC.NURSE ---
This RN attempted to give report to RN on S3.
[2022-10-05 03:35] VITALS: BP 115/54; PULSE 54; RESP 18; TEMP 36; O2SAT 95
[2022-10-05 07:36] VITALS: BP 151/68; PULSE 72; RESP 18; TEMP 36.2; O2SAT 95
[2022-10-05 08:00] VITALS: BP 151/68; PULSE 72; RESP 18; TEMP 36.2; O2SAT 95
--- NOTE | 2022-10-05 09:41 | HO.PM.IMPN ---
Subjective Subjective Date of Service: 10/05/22 Interval History: sob, anzxious Physical Exam Vital Signs: Vital Signs: Last Vital Signs Temp 97.2 F 10/05/22 08:00 Pulse 72 10/05/22 08:00 Resp 18 10/05/22 08:00 BP 151/68 H 10/05/22 08:00 Pulse Ox 95 10/05/22 08:00 O2 Del Method Nasal Cannula 10/05/22 08:00 O2 Flow Rate 3 10/05/22 07:36 Oxygen Flow Rate 2 10/04/22 13:19 BMI result Body Mass Index 22.0 alert, oriented to person, place, anxious appearing, poor insight, right sided crackles Objective Data Active Medications Acetaminophen (Acetaminophen 325 Mg Tablet) 650 mg PO Q6H PRN PRN Reason: Pain, Mild (Pain Scale 1-3) Al Hydroxide/Mg Hydroxide (Magnesium Hydrox/Alum Hydrox 30 Ml Oral.Susp) 30 ml PO Q4H PRN PRN Reason: GI UPSET Albuterol/Ipratropium (Albuterol/Iprat 2.5/0.5mg 3 Ml Ampul.Neb) 3 ml INHALE Q4H PRN PRN Reason: Wheezing Benzonatate (Benzonatate 100 Mg Capsule) 100 mg PO BEDTIME [facility] Last Admin: 10/04/22 22:02 Dose: 100 mg Documented By: INGE Benztropine Mesylate (Benztropine Mesylate 1 Mg Tablet) 1 mg PO DAILY [facility] Last Admin: 10/05/22 08:02 Dose: 1 mg Documented By: RUSSELL Cyanocobalamin (Cyanocobalamin (Vitamin B-12) 1,000 Mcg Tablet) 1,000 mcg PO DAILY [facility] Last Admin: 10/05/22 08:02 Dose: 1,000 mcg Documented By: RUSSELL Dextrose (Dextrose 50 % 25 Gm/50 Ml Syringe) 25 gm IVPUSH Q15M PRN; Protocol PRN Reason: per Hypoglycemia Standing Ord. Docusate Sodium (Docusate Sodium 100 Mg Capsule) 100 mg PO BID [facility] Last Admin: 10/05/22 08:02 Dose: 100 mg Documented By: RUSSELL Enoxaparin Sodium (Enoxaparin Sodium 40 Mg/0.4 Ml Syringe) 40 mg SUBCUT Q24H [facility] Last Admin: 10/04/22 20:16 Dose: Not Given Documented By: CORI Non-Admin Reason: Patient Refused Escitalopram Oxalate (Escitalopram Oxalate 10 Mg Tablet) 10 mg PO DAILY [facility] Last Admin: 10/05/22 08:03 Dose: 10 mg Documented By: RUSSELL Fluphenazine HCl (Fluphenazine Hcl 5 Mg Tablet) 20 mg PO DAILY [facility] Last Admin: 10/05/22 08:02 Dose: 20 mg Documented By: RUSSELL Fluphenazine HCl (Fluphenazine Hcl 5 Mg Tablet) 10 mg PO BEDTIME [facility] Last Admin: 10/04/22 22:03 Dose: 10 mg Documented By: KAJAL-JOZEDago Fluticasone/Vilanterol (Fluticasone/Vilanterol 100/25 Blst.W.Dev) 1 puff INHALE RDAILY [facility] Last Admin: 10/05/22 09:09 Dose: Not Given Documented By: ISABEL Non-Admin Reason: pharmacy called, spoke with darlene Glucose (Glucose Gel 15 Gm Gel..Gram.) 15 gm PO Q15M PRN; Protocol PRN Reason: per Hypoglycemia Standing Ord. Ceftriaxone Sodium 1 gm/ (Sodium Chloride) 50 mls @ 100 mls/hr IV Q24H [facility] Azithromycin 500 mg/ Sodium (Chloride) 250 mls @ 125 mls/hr IV Q24H [facility] Last Infusion: 10/05/22 00:49 Dose: 0 mls/hr Documented By: JEFF Insulin Human Lispro (Insulin Lispro 100 Unit/Ml 3 Ml Vial) 0 unit SUBCUT QIDACHS [facility]; Protocol Last Admin: 10/05/22 08:03 Dose: Not Given Documented By: RUSSELL Non-Admin Reason: No Insulin Coverage Levothyroxine Sodium (Levothyroxine Sodium 125 Mcg Tablet) 125 mcg PO DAILY@0600 [facility] Last Admin: 10/05/22 05:07 Dose: 125 mcg Documented By: JEFF Lorazepam (Lorazepam 0.5 Mg Tablet) 0.5 mg PO BID [facility] Last Admin: 10/05/22 08:02 Dose: 0.5 mg Documented By: RUSSELL Magnesium Hydroxide (Milk Of Magnesia 30 Ml Oral.Susp) 30 ml PO DAILY PRN PRN Reason: Constipation Melatonin (Melatonin 3 Mg Tablet) 6 mg PO BEDTIME PRN PRN Reason: Insomnia Last Admin: 10/04/22 22:03 Dose: 6 mg Documented By: INGE Nicotine (Nicotine 14 Mg Patch.Td24) 14 mg TRANSDERMA DAILY [facility] Last Admin: 10/05/22 08:02 Dose: 14 mg Documented By: RUSSELL Ondansetron HCl (Ondansetron Hcl 4 Mg/2 Ml Vial) 4 mg IVPUSH Q8H PRN PRN Reason: Nausea and Vomiting Polyethylene Glycol (Polyethylene Glycol 3350 17 Gm Powd.Pack) 17 gm PO DAILY PRN PRN Reason: Constipation Senna (Sennosides 8.6 Mg Tablet) 8.6 mg PO BEDTIME [facility] Last Admin: 10/04/22 22:06 Dose: Not Given Documented By: INGE Non-Admin Reason: Patient Refused Sodium Chloride (0.9 % Sodium Chloride Flush 3 Ml Syringe) 3 ml IVFLUSH QSHIFT [facility] Last Admin: 10/05/22 08:03 Dose: 3 ml Documented By: RUSSELL Trazodone HCl (Trazodone Hcl 25 Mg Halftab) 25 mg PO BEDTIME [facility] Last Admin: 10/04/22 22:02 Dose: 25 mg Documented By: INGE Labs 10/04/22 14:12 10/04/22 14:12 Labs: Laboratory Results - last 24 hr 10/04/22 10/04/22 10/04/22 14:12 14:12 14:12 MCV 81.4 MCH 28.0 MCHC 34.4 RDW 12.4 Plt Count 185 D MPV 9.8 Immature Gran % (Auto) Cancelled Neut % (Auto) Cancelled Lymph % (Auto) Cancelled [place] % (Auto) Cancelled Eos % (Auto) Cancelled Baso % (Auto) Cancelled Lymph # (Auto) Cancelled [place] # (Auto) Cancelled Eos # (Auto) Cancelled Baso # (Auto) Cancelled Abs Immat Gran (auto) Cancelled Absolute Neuts (auto) Cancelled Absolute Nucleated RBC 0.000 Nucleated RBC % (auto) 0.0 Neutrophils % (Manual) 34 L Band Neutrophils % 47 H Lymphocytes % (Manual) 7 L Monocytes % (Manual) 9 Eosinophils % (Manual) 1 Basophils % (Manual) 1 Metamyelocytes % 1 Abs Neuts (Manual) 5.4 Lymphocytes # (Manual) 0.5 L Monocytes # (Manual) 0.6 Eosinophils # (Manual) 0.1 Basophils # (Manual) 0.1 Metamyelocytes # 0.1 Platelet Estimate NORMAL Plt Morphology Comment NORMAL RBC Morphology NOTED Tear Drop Cells 1+ (0-2) Maty Cells 2+ (3-5) PT INR VBG pH VBG pCO2 VBG pO2 VBG HCO3 VBG O2 Saturation VBG Base Excess Anion Gap 15 Estim Creat Clear Calc 47.3 Estimated GFR 53 POC Glucose Random Glucose 116 H Lactic Acid Calcium 11.4 H D Magnesium Total Bilirubin Direct Bilirubin AST ALT Alkaline Phosphatase Troponin I High Sens B-Natriuretic Peptide Total Protein Albumin Urine Color Urine Appearance Urine pH Ur Specific [place] Urine Protein Urine Glucose (UA) Urine Ketones Urine Blood Urine Nitrite Ur Leukocyte Esterase Urine RBC Urine WBC Ur Squamous Epith Cells Urine Bacteria Hyaline Casts COVID-19 (BLESSING) Negative COVID-19 Clin Com See Note Influenza Type A (WENDY) Influenza Type B (WENDY) Influenza A & B Note 10/04/22 10/04/22 10/04/22 14:12 14:12 14:12 MCV MCH MCHC RDW Plt Count MPV Immature Gran % (Auto) Neut % (Auto) Lymph % (Auto) [place] % (Auto) Eos % (Auto) Baso % (Auto) Lymph # (Auto) [place] # (Auto) Eos # (Auto) Baso # (Auto) Abs Immat Gran (auto) Absolute Neuts (auto) Absolute Nucleated RBC Nucleated RBC % (auto) Neutrophils % (Manual) Band Neutrophils % Lymphocytes % (Manual) Monocytes % (Manual) Eosinophils % (Manual) Basophils % (Manual) Metamyelocytes % Abs Neuts (Manual) Lymphocytes # (Manual) Monocytes # (Manual) Eosinophils # (Manual) Basophils # (Manual) Metamyelocytes # Platelet Estimate Plt Morphology Comment RBC Morphology Tear Drop Cells [place] Cells PT 12.8 INR 1.1 VBG pH VBG pCO2 VBG pO2 VBG HCO3 VBG O2 Saturation VBG Base Excess Anion Gap Estim Creat Clear Calc Estimated GFR POC Glucose Random Glucose Lactic Acid 0.7 Calcium Magnesium 1.7 Total Bilirubin 0.5 Direct Bilirubin 0.2 AST 12 ALT 11 Alkaline Phosphatase 74 Troponin I High Sens B-Natriuretic Peptide Total Protein 7.2 Albumin 3.8 Urine Color Urine Appearance Urine pH Ur Specific [place] Urine Protein Urine Glucose (UA) Urine Ketones Urine Blood Urine Nitrite Ur Leukocyte Esterase Urine RBC Urine WBC Ur Squamous Epith Cells Urine Bacteria Hyaline Casts COVID-19 (BLESSING) COVID-19 Clin Com Influenza Type A (WENDY) Influenza Type B (WENDY) Influenza A & B Note 10/04/22 10/04/22 10/04/22 14:12 14:12 14:12 MCV MCH MCHC RDW Plt Count MPV Immature Gran % (Auto) Neut % (Auto) Lymph % (Auto) [place] % (Auto) Eos % (Auto) Baso % (Auto) Lymph # (Auto) [place] # (Auto) Eos # (Auto) Baso # (Auto) Abs Immat Gran (auto) Absolute Neuts (auto) Absolute Nucleated RBC Nucleated RBC % (auto) Neutrophils % (Manual) Band Neutrophils % Lymphocytes % (Manual) Monocytes % (Manual) Eosinophils % (Manual) Basophils % (Manual) Metamyelocytes % Abs Neuts (Manual) Lymphocytes # (Manual) Monocytes # (Manual) Eosinophils # (Manual) Basophils # (Manual) Metamyelocytes # Platelet Estimate Plt Morphology Comment RBC Morphology Tear Drop Cells [place] Cells PT INR VBG pH VBG pCO2 VBG pO2 VBG HCO3 VBG O2 Saturation VBG Base Excess Anion Gap Estim Creat Clear Calc Estimated GFR POC Glucose Random Glucose Lactic Acid Calcium Magnesium Total Bilirubin Direct Bilirubin AST ALT Alkaline Phosphatase Troponin I High Sens 3.1 B-Natriuretic Peptide 42 Total Protein Albumin Urine Color Urine Appearance Urine pH Ur Specific [place] Urine Protein Urine Glucose (UA) Urine Ketones Urine Blood Urine Nitrite Ur Leukocyte Esterase Urine RBC Urine WBC Ur Squamous Epith Cells Urine Bacteria Hyaline Casts COVID-19 (BLESSING) COVID-19 Clin Com Influenza Type A (WENDY) Negative Influenza Type B (WENDY) Negative Influenza A & B Note See Note 10/04/22 10/04/22 10/04/22 14:18 19:26 20:59 MCV MCH MCHC RDW Plt Count MPV Immature Gran % (Auto) Neut % (Auto) Lymph % (Auto) [place] % (Auto) Eos % (Auto) Baso % (Auto) Lymph # (Auto) [place] # (Auto) Eos # (Auto) Baso # (Auto) Abs Immat Gran (auto) Absolute Neuts (auto) Absolute Nucleated RBC Nucleated RBC % (auto) Neutrophils % (Manual) Band Neutrophils % Lymphocytes % (Manual) Monocytes % (Manual) Eosinophils % (Manual) Basophils % (Manual) Metamyelocytes % Abs Neuts (Manual) Lymphocytes # (Manual) Monocytes # (Manual) Eosinophils # (Manual) Basophils # (Manual) Metamyelocytes # Platelet Estimate Plt Morphology Comment RBC Morphology Tear Drop Cells Maty Cells PT INR VBG pH 7.38 VBG pCO2 43 VBG pO2 38 VBG HCO3 26 VBG O2 Saturation 62.0 VBG Base Excess 1.1 Anion Gap Estim Creat Clear Calc Estimated GFR POC Glucose 232 H Random Glucose Lactic Acid Calcium Magnesium Total Bilirubin Direct Bilirubin AST ALT Alkaline Phosphatase Troponin I High Sens B-Natriuretic Peptide Total Protein Albumin Urine Color Yellow Urine Appearance Clear Urine pH 5.5 Ur Specific [place] 1.015 Urine Protein 30 (1+) H Urine Glucose (UA) Negative Urine Ketones Negative Urine Blood Negative Urine Nitrite Negative Ur Leukocyte Esterase Negative Urine RBC 0-2 Urine WBC 0-5 Ur Squamous Epith Cells 0-2 Urine Bacteria None Seen Hyaline Casts 0-2 COVID-19 (BLESSING) COVID-19 Clin Com Influenza Type A (WENDY) Influenza Type B (WENDY) Influenza A & B Note 10/04/22 10/05/22 21:52 07:43 MCV MCH MCHC RDW Plt Count MPV Immature Gran % (Auto) Neut % (Auto) Lymph % (Auto) [place] % (Auto) Eos % (Auto) Baso % (Auto) Lymph # (Auto) [place] # (Auto) Eos # (Auto) Baso # (Auto) Abs Immat Gran (auto) Absolute Neuts (auto) Absolute Nucleated RBC Nucleated RBC % (auto) Neutrophils % (Manual) Band Neutrophils % Lymphocytes % (Manual) Monocytes % (Manual) Eosinophils % (Manual) Basophils % (Manual) Metamyelocytes % Abs Neuts (Manual) Lymphocytes # (Manual) Monocytes # (Manual) Eosinophils # (Manual) Basophils # (Manual) Metamyelocytes # Platelet Estimate Plt Morphology Comment RBC Morphology Tear Drop Cells Maty Cells PT INR VBG pH VBG pCO2 VBG pO2 VBG HCO3 VBG O2 Saturation VBG Base Excess Anion Gap Estim Creat Clear Calc Estimated GFR POC Glucose 167 H 124 H Random Glucose Lactic Acid Calcium Magnesium Total Bilirubin Direct Bilirubin AST ALT Alkaline Phosphatase Troponin I High Sens B-Natriuretic Peptide Total Protein Albumin Urine Color Urine Appearance Urine pH Ur Specific [place] Urine Protein Urine Glucose (UA) Urine Ketones Urine Blood Urine Nitrite Ur Leukocyte Esterase Urine RBC Urine WBC Ur Squamous Epith Cells Urine Bacteria Hyaline Casts COVID-19 (BLESSING) COVID-19 Clin Com Influenza Type A (WENDY) Influenza Type B (WENDY) Influenza A & B Note Assessment and Plan (1) Pneumonia: Status: Acute Plan 72F PMH hypothyroid, dementia, schizoaffective disorder, DM, copd, presented with ams sepsis present on admission, acute hypoxic respiratory failure, acute metabolic encephalopathy due to right sided pneumonia Continue ceftriaxone azithromycin, follow-up cultures, wean O2 as tolerated Diabetes Insulin, monitor point of cares schizoaffective disorder lexapro, ativan, congentin, prolixin COPD breo Hypothyroid Continue levothyroxine DVT prophylaxis with Lovenox Full code reason for continued hospitalization: awaiting deferevenscense Time Spent With Patient Time: Total time managing care of this patient today ____ minutes. Quality Stroke Does the patient have a stroke diagnosis?: No VTE Prior VTE?: No VTE Risk Level:: Medical - moderate - high VTE Device Contraindication: Treatment Not Indicated VTE Drug Contraindication: N/A - Med Ordered
--- NOTE | 2022-10-05 09:43 | MHC.CLN ---
NUTRITION DIET CHANGED TO DIABETIC 1800 KCALS DUE TO DX DM.
[2022-10-05 10:02] LABS: MANUAL DIFF FLAG NO
[2022-10-05 10:14] LABS: Basophils Percent Auto 0.6 % (0-2); Eosinophils Percent Auto 0.6 % (0-4); Hematocrit 33.1 % (37.0-47.0); Hemoglobin 10.8 g/dl (12.0-16.0); Imm Gran Abs Auto 0.05 X10*3/uL (0.00-0.03); Imm Gran Pct Auto 0.8 % (0.0-0.4); Lymphocytes Absolute Auto 0.4 X10*3/uL (1.2-4.9); Lymphocytes Percent Auto 6.7 % (20-40); Mean Corpuscular HGB Conc 32.6 g/dl (31.0-35.0); Mean Corpuscular Hemoglobin 27.1 pg (27.0-33.0); Mean Platelet Volume 9.5 fL (9.4-12.3); Monocytes Absolute Auto 0.9 X10*3/uL (0.1-1.2); Monocytes Percent Auto 13.4 % (2-11); Neutrophils Percent Auto 77.9 % (45-73); Platelet Count 177 X10*3/uL (160-400); Red Blood Count 3.99 X10*6/uL (4.20-5.50); Red Cell Distribution Width 12.6 % (11.0-16.0); White Blood Count 6.4 X10*3/uL (4.8-10.8)
--- NOTE | 2022-10-05 10:32 | MHC.CM.PN ---
This CM left message for guardian Lupe Lott at [phone], awaiting return call.
[2022-10-05 10:44] LABS: Anion Gap 13 (12-20); Blood Urea Nitrogen 20 mg/dL (9-16); Calcium 11.2 mg/dL (8.4-10.2); Carbon Dioxide 24 mmol/L (22-29); Chloride 103 mmol/L (96-108); Creatinine Clr Calc Pharmacy 56.6; Estimated Glomerular Filt Rate > 60; Glucose Random 155 mg/dL (60-115); Potassium 3.7 mmol/L (3.3-5.1); Sodium 136 mmol/L (135-145)
--- NOTE | 2022-10-05 13:15 | MHC.CM.PN ---
IMM 10/05 given verbally on telephone to guardimarietta Andrade who declines a copy (copy placed in pts chart). Pt admitted with dx altered mental status, she has schizophrenia at her baseline. Pt resides at [facility], she uses a walker, and has a legal guardian Lupevioleta Lott ([phone]). D/C plan to return to [facility] when medically cleared. Transport will be BLS/chair van. This CM spoke with guardimarietta Andrade who requests an update from the provider, hospitalist notified. PCP: Eugenio Apodaca vax: x 1 [place]
[2022-10-05 15:07] VITALS: BP 125/61; PULSE 74; RESP 18; TEMP 36.6; O2SAT 92
[2022-10-05 20:00] VITALS: PULSE 66; RESP 20; TEMP 36.5; O2SAT 91
[2022-10-06 03:44] VITALS: BP 124/62; PULSE 51; RESP 18; TEMP 36.7; O2SAT 92
[2022-10-06 07:19] VITALS: BP 149/76; PULSE 68; RESP 20; TEMP 36.4; O2SAT 90
--- NOTE | 2022-10-06 09:00 | HO.PM.IMPN ---
Subjective Subjective Date of Service: 10/06/22 Interval History: anxious Physical Exam Vital Signs: Vital Signs: Last Vital Signs Temp 97.5 F 10/06/22 07:19 Pulse 68 10/06/22 07:19 Resp 20 10/06/22 07:19 BP 149/76 H 10/06/22 07:19 Pulse Ox 90 L 10/06/22 07:19 O2 Del Method Room Air 10/06/22 07:19 O2 Flow Rate 2 10/06/22 03:44 Oxygen Flow Rate 2 10/04/22 13:19 BMI result Body Mass Index 22.0 alert, oriented to person, place, anxious appearing, poor insight, right sided crackles Objective Data Active Medications Acetaminophen (Acetaminophen 325 Mg Tablet) 650 mg PO Q6H PRN PRN Reason: Pain, Mild (Pain Scale 1-3) Al Hydroxide/Mg Hydroxide (Magnesium Hydrox/Alum Hydrox 30 Ml Oral.Susp) 30 ml PO Q4H PRN PRN Reason: GI UPSET Albuterol/Ipratropium (Albuterol/Iprat 2.5/0.5mg 3 Ml Ampul.Neb) 3 ml INHALE Q4H PRN PRN Reason: Wheezing Benzonatate (Benzonatate 100 Mg Capsule) 100 mg PO BEDTIME [facility] Last Admin: 10/05/22 20:12 Dose: 100 mg Documented By: ERNA Benztropine Mesylate (Benztropine Mesylate 1 Mg Tablet) 1 mg PO DAILY [facility] Last Admin: 10/06/22 08:04 Dose: 1 mg Documented By: SHIREEN Cyanocobalamin (Cyanocobalamin (Vitamin B-12) 1,000 Mcg Tablet) 1,000 mcg PO DAILY [facility] Last Admin: 10/06/22 08:05 Dose: 1,000 mcg Documented By: SHIREEN Dextrose (Dextrose 50 % 25 Gm/50 Ml Syringe) 25 gm IVPUSH Q15M PRN; Protocol PRN Reason: per Hypoglycemia Standing Ord. Docusate Sodium (Docusate Sodium 100 Mg Capsule) 100 mg PO BID [facility] Last Admin: 10/06/22 08:04 Dose: 100 mg Documented By: SHIREEN Enoxaparin Sodium (Enoxaparin Sodium 40 Mg/0.4 Ml Syringe) 40 mg SUBCUT Q24H [facility] Last Admin: 10/05/22 20:16 Dose: Not Given Documented By: ERNA Non-Admin Reason: Patient Refused Escitalopram Oxalate (Escitalopram Oxalate 10 Mg Tablet) 10 mg PO DAILY [facility] Last Admin: 10/06/22 08:05 Dose: 10 mg Documented By: SHIREEN Fluphenazine HCl (Fluphenazine Hcl 5 Mg Tablet) 20 mg PO DAILY [facility] Last Admin: 10/06/22 08:05 Dose: 20 mg Documented By: SHIREEN Fluphenazine HCl (Fluphenazine Hcl 5 Mg Tablet) 10 mg PO BEDTIME [facility] Last Admin: 10/05/22 20:13 Dose: 10 mg Documented By: ERNA Fluticasone/Vilanterol (Fluticasone/Vilanterol 100/25 Blst.W.Dev) 1 puff INHALE RDAILY [facility] Last Admin: 10/06/22 08:13 Dose: Not Given Documented By: ALVARO Non-Admin Reason: Patient Refused Glucose (Glucose Gel 15 Gm Gel..Gram.) 15 gm PO Q15M PRN; Protocol PRN Reason: per Hypoglycemia Standing Ord. Ceftriaxone Sodium 1 gm/ (Sodium Chloride) 50 mls @ 100 mls/hr IV Q24H [facility] Last Infusion: 10/05/22 16:00 Dose: 0 mls/hr Documented By: LIBERTAD Azithromycin 500 mg/ Sodium (Chloride) 250 mls @ 125 mls/hr IV Q24H [facility] Last Infusion: 10/05/22 22:26 Dose: 0 mls/hr Documented By: ERNA Insulin Human Lispro (Insulin Lispro 100 Unit/Ml 3 Ml Vial) 0 unit SUBCUT QIDACHS [facility]; Protocol Last Admin: 10/06/22 08:00 Dose: Not Given Documented By: SHIREEN Non-Admin Reason: No Insulin Coverage Levothyroxine Sodium (Levothyroxine Sodium 125 Mcg Tablet) 125 mcg PO DAILY@0600 [facility] Last Admin: 10/06/22 06:32 Dose: 125 mcg Documented By: ERNA Lorazepam (Lorazepam 0.5 Mg Tablet) 0.5 mg PO BID [facility] Last Admin: 10/06/22 08:05 Dose: 0.5 mg Documented By: SHIREEN Magnesium Hydroxide (Milk Of Magnesia 30 Ml Oral.Susp) 30 ml PO DAILY PRN PRN Reason: Constipation Melatonin (Melatonin 3 Mg Tablet) 6 mg PO BEDTIME PRN PRN Reason: Insomnia Last Admin: 10/04/22 22:03 Dose: 6 mg Documented By: INGE Nicotine (Nicotine 14 Mg Patch.Td24) 14 mg TRANSDERMA DAILY [facility] Last Admin: 10/06/22 08:04 Dose: 14 mg Documented By: SHIREEN Ondansetron HCl (Ondansetron Hcl 4 Mg/2 Ml Vial) 4 mg IVPUSH Q8H PRN PRN Reason: Nausea and Vomiting Polyethylene Glycol (Polyethylene Glycol 3350 17 Gm Powd.Pack) 17 gm PO DAILY PRN PRN Reason: Constipation Senna (Sennosides 8.6 Mg Tablet) 8.6 mg PO BEDTIME [facility] Last Admin: 10/05/22 20:12 Dose: 8.6 mg Documented By: ERNA Sodium Chloride (0.9 % Sodium Chloride Flush 3 Ml Syringe) 3 ml IVFLUSH QSHIFT [facility] Last Admin: 10/06/22 08:00 Dose: Not Given Documented By: SHIREEN Non-Admin Reason: No Access Trazodone HCl (Trazodone Hcl 25 Mg Halftab) 25 mg PO BEDTIME [facility] Last Admin: 10/05/22 20:12 Dose: 25 mg Documented By: ERNA Labs 10/06/22 05:45 10/06/22 05:45 Labs: Laboratory Results - last 24 hr 10/05/22 10/05/22 10/05/22 09:40 09:41 11:25 MCV 83.0 MCH 27.1 MCHC 32.6 RDW 12.6 Plt Count 177 MPV 9.5 Immature Gran % (Auto) 0.8 H Neut % (Auto) 77.9 H Lymph % (Auto) 6.7 L [place] % (Auto) 13.4 H Eos % (Auto) 0.6 Baso % (Auto) 0.6 Lymph # (Auto) 0.4 L [place] # (Auto) 0.9 Eos # (Auto) 0.0 Baso # (Auto) 0.0 Abs Immat Gran (auto) 0.05 H Absolute Neuts (auto) 5.0 Absolute Nucleated RBC 0.000 Nucleated RBC % (auto) 0.0 Anion Gap 13 Estim Creat Clear Calc 56.6 Estimated GFR > 60 POC Glucose 136 H Random Glucose 155 H Fasting Glucose Calcium 11.2 H Total Bilirubin Direct Bilirubin AST ALT Alkaline Phosphatase Total Protein Albumin 25-OH Vitamin D Total Nasal Screen MRSA (PCR) Nasal S. aureus Screen Nasal MRSA/S.aureus Interp 10/05/22 10/05/22 10/05/22 16:17 16:49 20:14 MCV MCH MCHC RDW Plt Count MPV Immature Gran % (Auto) Neut % (Auto) Lymph % (Auto) [place] % (Auto) Eos % (Auto) Baso % (Auto) Lymph # (Auto) [place] # (Auto) Eos # (Auto) Baso # (Auto) Abs Immat Gran (auto) Absolute Neuts (auto) Absolute Nucleated RBC Nucleated RBC % (auto) Anion Gap Estim Creat Clear Calc Estimated GFR POC Glucose 99 131 H Random Glucose Fasting Glucose Calcium Total Bilirubin Direct Bilirubin AST ALT Alkaline Phosphatase Total Protein Albumin 25-OH Vitamin D Total Nasal Screen MRSA (PCR) NEGATIVE Nasal S. aureus Screen NEGATIVE Nasal MRSA/S.aureus Interp SEE NOTE 10/06/22 10/06/22 10/06/22 05:45 05:45 07:25 MCV 82.1 MCH 27.3 MCHC 33.2 RDW 12.4 Plt Count 159 L MPV 9.4 Immature Gran % (Auto) Neut % (Auto) Lymph % (Auto) [place] % (Auto) Eos % (Auto) Baso % (Auto) Lymph # (Auto) [place] # (Auto) Eos # (Auto) Baso # (Auto) Abs Immat Gran (auto) Absolute Neuts (auto) Absolute Nucleated RBC 0.000 Nucleated RBC % (auto) 0.0 Anion Gap 12 Estim Creat Clear Calc 64.1 Estimated GFR > 60 POC Glucose 123 H Random Glucose Fasting Glucose 102 H Calcium 10.7 H Total Bilirubin 0.3 Direct Bilirubin 0.1 AST 12 ALT 13 Alkaline Phosphatase 62 Total Protein 5.5 L Albumin 2.7 L 25-OH Vitamin D Total 16.9 Nasal Screen MRSA (PCR) Nasal S. aureus Screen Nasal MRSA/S.aureus Interp Microbiology Microbiology Results: Microbiology 10/04/22 14:12 Blood Culture - Preliminary Blood - Arterial No growth after 24 hours. 10/04/22 14:12 Blood Culture - Preliminary Blood - Arterial No growth after 24 hours. Assessment and Plan (1) Pneumonia: Status: Acute Plan 72F PMH hypothyroid, dementia, schizoaffective disorder, DM, copd, presented with ams sepsis present on admission, acute hypoxic respiratory failure, acute metabolic encephalopathy due to right sided pneumonia Continue ceftriaxone azithromycin, follow-up cultures, wean O2 as tolerated improving hypercalcemia follow up pth, vit d Diabetes Insulin, monitor point of cares schizoaffective disorder lexapro, ativan, congentin, prolixin COPD breo Hypothyroid Continue levothyroxine DVT prophylaxis with Lovenox Full code reason for continued hospitalization: awaiting deferevenscense Time Spent With Patient Time: Total time managing care of this patient today ____ minutes. Quality Stroke Does the patient have a stroke diagnosis?: No VTE Prior VTE?: No VTE Risk Level:: Medical - moderate - high VTE Device Contraindication: Treatment Not Indicated VTE Drug Contraindication: N/A - Med Ordered
--- NOTE | 2022-10-06 10:11 | PC.NURSE ---
Patient pulled out her peripheral IV this morning. Physician notified and changed IV antibiotics over to pills.
[2022-10-06 14:57] VITALS: BP 122/56; PULSE 66; RESP 20; TEMP 36.2; O2SAT 92
[2022-10-07] VITALS: BP 148/67; PULSE 54; RESP 16; TEMP 36.6; O2SAT 94
[2022-10-07 03:41] VITALS: BP 138/64; PULSE 51; RESP 16; TEMP 36.1; O2SAT 92
--- NOTE | 2022-10-07 05:49 | PC.NURSE ---
Patient refused Prilosec and lab draw. Front Desk Officer says she will come back and try again.
[2022-10-07 07:25] VITALS: BP 141/83; PULSE 65; RESP 20; TEMP 36.1; O2SAT 92
--- NOTE | 2022-10-07 08:01 | PC.RT ---
Pt unable to coordinate mdi. RT coaching attempted, pt able to put mdi to her lip but cannot generate insp force to achieve dose. RN aware.
--- NOTE | 2022-10-07 10:02 | PM.DS ---
DS: Providers Provider Date of Service: 10/07/22 Date of admission: 10/04/22 19:30 Primary care physician: Eugenio Mota MD DS: Diagnosis Discharge Diagnosis (1) Pneumonia: Status: Acute DS: Summary Hospital Course Hospital Course: from initial hpi: 72-year-old female with pertinent history of hypothyroidism, zoj-[id number] diabetes mellitus, mood disorder, tobacco use disorder, dementia who sent to the emergency department for evaluation of confusion. Patient is a resident of [facility].? She was noted to be confused on the day of presentation and weak.? Patient is a poor historian and history is obtained by ER provider and chart review.? Patient states that she has trouble breathing and is having productive cough.? As per the ER provider, patient also had 2 episodes of urinary incontinence.? She had 1 episode of unwitnessed fall due to weakness.? Patient states that she will does not feel well.? Unable to obtain review of systems. In the emergency department, patient was found to be febrile.? Imaging with right-sided pneumonia.? Bands present on differential white count hospital course: Patient was admitted for sepsis present on admission complicated by acute hypoxic respiratory failure and acute metabolic encephalopathy due to right-sided pneumonia. She was treated with ceftriaxone azithromycin and sepsis resolved. Patient's mental status returned to baseline and she was weaned off oxygen. Her cultures were unremarkable. She will be discharged back to skilled nurse facility on 5 more days of cefuroxime and azithromycin. Patient was incidentally noted to have hypercalcemia vitamin-D was within normal limits, PTH was drawn and is pending. This should be followed up as outpatient. For diabetes was continue insulin. For schizoaffective disorder was continue on Lexapro, Ativan, Cogentin, Prolixin. Her COPD was continued on Breo. For hypothyroidism was continued on Synthroid. Patient is now back to baseline will be discharged to residential facility. Time Spent with Patient Time attestation: Total time managing care of this patient today ____ minutes. Discharge coordination time: Greater than 30 minutes Quality: Safe Use of Opioids Does Pt have an Active Cancer Diagnosis on the Problem List?: No Quality: Stroke Does the patient have a stroke diagnosis?: No Physical Exam Vital Signs: Vital Signs: Last Vital Signs Temp 97 F 10/07/22 07:25 Pulse 65 10/07/22 07:25 Resp 20 10/07/22 07:25 BP 141/83 H 10/07/22 07:25 Pulse Ox 92 10/07/22 07:25 O2 Del Method Room Air 10/07/22 07:25 O2 Flow Rate 2 10/06/22 03:44 Oxygen Flow Rate 2 10/04/22 13:19 BMI result Body Mass Index 22.0 alert, oriented to person, place, anxious appearing, poor insight, right sided crackles DS: Data Data Completed and Pending Labs on day of discharge: Laboratory Results - last 24 hr 10/06/22 10/06/22 10/06/22 10:53 16:06 20:40 POC Glucose 154 H 109 155 H 10/07/22 07: POC Glucose 133 H Preliminary micro results at discharge 10/04/22 14:12 Blood Culture - Preliminary Blood - Arterial No growth after 48 hours. 10/04/22 14:12 Blood Culture - Preliminary Blood - Arterial No growth after 48 hours. Discharge Plan Discharge Anticipated Discharge Date/Time: 10/07/22 09:57 Patient Disposition: Xfer SNF Discharge Diagnosis: pna Referrals: Eugenio Mota MD [Primary Care Provider] - 1 Week Discharge Medications: New azithromycin 500 mg Tablet 500 mg PO Q24H Qty: 0 0RF cefuroxime axetil 500 mg Tablet 500 mg PO Q12H Qty: 0 0RF Continued benztropine 1 mg Tablet 1 mg PO DAILY citalopram 10 mg Tablet 10 mg PO DAILY Rx Instructions: TAKES TOGETHER WITH 20 MG TABLET TO MAKE TOTAL DAILY DOSE OF 30 MG citalopram 20 mg Tablet 20 mg PO DAILY Rx Instructions: TAKES WITH 10 MG TABLET TO MAKE TOTAL DAILY DOSE OF 30 MG fluphenazine HCl 10 mg Tablet 20 mg PO DAILY levothyroxine 125 mcg Tablet 125 mcg PO DAILY@0600 metformin 500 mg Tablet 500 mg PO DAILY cyanocobalamin (vitamin B-12) 1,000 mcg Tablet 1,000 mcg PO DAILY docusate sodium 100 mg Capsule 100 mg PO BID sennosides [senna] 8.6 mg Tablet 8.6 mg PO BEDTIME loperamide 2 mg Tablet 2 mg PO Q4H PRN (Reason: Loose Stool) Rx Instructions: administer after each loose stool until symptoms controlled; do not exceed 8 mg per 24 hrs acetaminophen 325 mg Tablet 650 mg PO Q4H PRN (Reason: pain/fever) alum-mag hydroxide-simeth 200-200-20 mg/5 mL Suspension 30 ml PO Q4H PRN (Reason: GI UPSET) magnesium hydroxide [Milk of Magnesia] 400 mg/5 mL Suspension 30 ml PO DAILY PRN (Reason: Constipation) polyethylene glycol 3350 [Miralax] 17 gram/dose Powder 17 g PO DAILY PRN (Reason: Constipation) trazodone 50 mg tablet 25 mg PO BEDTIME fluphenazine HCl 10 mg tablet 10 mg PO BEDTIME lorazepam 0.5 mg tablet 0.5 mg PO BID benzonatate 100 mg Capsule 100 mg PO BEDTIME fluticasone furoate-vilanterol [Breo Ellipta] 100-25 mcg/dose blister with device 1 ea inhalation DAILY Discharge Orders: Discharge Order (Routine); Ordered 10/07/22 Ordered By: Franki Rodriguez Diet: Advance to usual diet Activity on Discharge: As tolerated Stand Alone Forms: Patient Portal Discharge page Care Plan Goals: recovery Health Concerns: penumonia, hypercalcemia Plan of Treatment: 5 more days antibiotics, follow up pth, pcp Assessment: see above
--- NOTE | 2022-10-07 10:16 | MHC.CM.PN ---
pt retuirning to [facility] pt will be dcd at 11 staff noified message left for pts guardian chriss [phone]
[2022-10-10 02:39] LABS: Calcium (PTHI) 9.8 mg/dL (8.6-10.4); PTHI 113 pg/mL (16-77)
== END 2022-10-07 11:02 | disposition intermediate care facility (04) | DRG 871 ==
LOC: HO.ED 19:28 → HO.EDOVER 19:48 → HO.S3 19:58
PROVIDERS: Admitting Provider Student in an Organized Health Care Education/Training Program; Emergency Provider Emergency Medicine; PCP Internal Medicine; Visit Provider Internal Medicine
DX: A41.9 Sepsis, unspecified organism (principal); G93.41 Metabolic encephalopathy; J18.9 Pneumonia, unspecified organism; J96.01 Acute respiratory failure with hypoxia; J44.0 Chronic obstructive pulmonary disease with (acute) lower respiratory infection; F25.9 Schizoaffective disorder, unspecified; E83.52 Hypercalcemia; F03.90 Unspecified dementia, unspecified severity, without behavioral disturbance, psychotic disturbance, mood disturbance, and anxiety; E11.9 Type 2 diabetes mellitus without complications; E03.9 Hypothyroidism, unspecified; Z20.822 Contact with and (suspected) exposure to COVID-19; Z79.84 Long term (current) use of oral hypoglycemic drugs; Z79.899 Other long term (current) drug therapy
CPT/HCPCS: 36415; 70450; 71045; 72125; 80048; 80076; 81001; 82306; 82803; 82947; 83605; 83735; 83880; 83970; 84484; 85007; 85025; 85027; 85610; 87040; 87502; 87635; 87640; 87641; 93005; 99285; J0456; J0696; J1650

== ENCOUNTER 2023-10-15 05:28 | Emergency (ER) | payer MEDICARE, MEDICAID, SELFPAY ==
--- NOTE | ~2023-10-15 | CT_ITS ---
EXAMINATION: CT CERVICAL SPINE WITHOUT CONTRAST CLINICAL INFORMATION: Mechanical fall, neck injury and pain COMPARISON: CT cervical spine on 10/04/2022 TECHNIQUE: Multiple 2.0 mm axial images were obtained from base of skull to T1 levels without IV contrast enhancement. Sagittal and coronal 2.0 mm bone window images were reconstructed from axial image data. This CT examination was performed using dose optimization techniques as appropriate, variously including the following: *Automated exposure control *Adjustment of mA and/or kV according to patient size (this includes techniques or standardized protocols for targeted exams where dose is matched to indication/reason for exam; i.e. extremities or head) *Use of iterative reconstruction technique DLP: 961.23 mGy-cm FINDINGS: C1/C2: Bony structures are intact with normal alignment. There is no spinal stenosis. C2/C3: Bony structures are intact with normal alignment. There is no spinal stenosis. Bilateral C2/C3 neuroforamina are patent. Bilateral apophyseal joints are intact with normal alignment. C3/C4: Bony structures are intact with normal alignment. There is no spinal stenosis. Bilateral C3/C4 neuroforamina are mildly stenosed. Bilateral apophyseal joints are intact with normal alignment. C4/C5: Bony structures are intact with normal alignment. There is no spinal stenosis. Bilateral C4/C5 neuroforamina are patent. Bilateral apophyseal joints are intact with normal alignment. C5/C6: Bony structures are intact with normal alignment. There is marked decrease in intervertebral disc height. Posterior inferior C5 syndesmophyte is seen impinging the anterior thecal sac. There is no spinal stenosis. Bilateral C5/C6 neuroforamina are markedly stenosed. Bilateral apophyseal joints are intact with normal alignment. C6/C7: Bony structures are intact with normal alignment. There is no spinal stenosis. Bilateral C6/C7 neuroforamina are patent. Bilateral apophyseal joints are intact with normal alignment. C7/T1: Bony structures are intact with normal alignment. There is no spinal stenosis. Bilateral C7/T1 neuroforamina are patent. Bilateral apophyseal joints are intact with normal alignment. Multilevel bilateral apophyseal joint and uncovertebral joint osteoarthritis with loss of joint space, sclerosis, facet hypertrophy and osteophytosis are seen. CT/CT cervical spine wo IV con IMPRESSION: 1. No evidence of acute fracture or dislocation. 2. Unchanged advanced C5-C6 degenerative cervical disc disease and marked bilateral foraminal stenosis. 3. Unchanged Multilevel cervical spondylosis. Fleischner guidelines were followed.
--- NOTE | ~2023-10-15 | CT_ITS ---
EXAMINATION: CT HEAD WITHOUT CONTRAST CLINICAL INFORMATION: Mechanical fall. Blunt head trauma without loss of consciousness, significant head injury and posttraumatic headache. COMPARISON: CT scan of brain on 10/04/2022 TECHNIQUE: Contiguous axial imaging was performed from the skull base to vertex without intravenous administration of contrast. This CT examination was performed using dose optimization techniques as appropriate, variously including the following: *Automated exposure control *Adjustment of mA and/or kV according to patient size (this includes techniques or standardized protocols for targeted exams where dose is matched to indication/reason for exam; i.e. extremities or head) *Use of iterative reconstruction technique DLP: 961.23 mGy-cm FINDINGS: Ventricles, sulci and cisterns are dilated. Extensive confluent decreased attenuation is seen in bilateral frontal and parietal subcortical and deep white matter. There is no midline shift, no abnormal intra- or extra- axial fluid accumulation. [place] and white matter differentiation is normal. Bone window images show no evidence of skull fracture. CT/CT head/brain wo IV con IMPRESSION: 1. Age related cerebral atrophy, ventriculomegaly, extensive ischemic white matter disease compatible with microangiopathy are seen. 2. No intracranial hemorrhage or skull fracture is seen. 3. No evidence of space occupying lesion could be found. 4. The current plain CT scan of the brain shows no diagnostic evidence of acute cerebral infarction.
--- NOTE | ~2023-10-15 | XR_ITS ---
EXAMINATION: XR CHEST CLINICAL INFORMATION: Fall. Pain. COMPARISON: 10/04/2022. TECHNIQUE: Frontal view of the chest was obtained. FINDINGS: The cardiomediastinal silhouette is stable. There is no focal lung consolidation or pleural effusions. Multiple left rib fractures are seen. The soft tissues are unremarkable. XR/XR chest 1V IMPRESSION: 1. No acute cardiopulmonary process. 2. Multiple left rib fractures.
[2023-10-15 05:32] VITALS: BP 141/72; BP 150/90; PULSE 60; PULSE 62; RESP 17; TEMP 36.8; O2SAT 94; O2SAT 95; BMI 20.6
[2023-10-15 05:41] VITALS: BP 141/72; PULSE 60; RESP 17; TEMP 36.8; O2SAT 95
--- NOTE | 2023-10-15 05:44 | ECG_ITS ---
Test Reason : FALL Blood Pressure : / mmHG Vent. Rate : 056 BPM Atrial Rate : 056 BPM P-R Int : 178 ms QRS Dur : 090 ms QT Int : 396 ms P-R-T Axes : 074 039 064 degrees QTc Int : 382 ms Sinus bradycardia Otherwise normal ECG When compared with ECG of 04-OCT-2022 14:27, T wave amplitude has increased in Inferior leads T wave amplitude has increased in Lateral leads Referred By: Generic ED Physician Electronically Signed By:MICK HIDALGO MD
--- NOTE | 2023-10-15 06:06 | ED_ITS ---
HPI - Fall General Chief Complaint: Fall Stated Complaint: FALL Time Seen by Provider: 10/15/23 06:06 Source: patient Mode of arrival: ambulatory Limitations: no limitations History of Present Illness ED Provider: mo CONSTANTINO Narrative: Apparently patient trying to get up from the bed and fell hitting her head to the ground no loss of consciousness no other significant injuries Related Data Home Medications ?Medication ?Instructions ?Recorded ?Confirmed acetaminophen 325 mg tablet 650 mg PO Q4H PRN pain/fever 03/05/22 10/04/22 aluminum-mag hydroxide-simethicone 30 ml PO Q4H PRN GI UPSET 03/05/22 10/04/22 200 mg-200 mg-20 mg/5 mL oral susp benztropine 1 mg tablet 1 mg PO DAILY 03/05/22 10/04/22 citalopram 10 mg tablet 10 mg PO DAILY 03/05/22 10/04/22 citalopram 20 mg tablet 20 mg PO DAILY 03/05/22 10/04/22 cyanocobalamin (vitamin B-12) 1,000 mcg PO DAILY 03/05/22 10/04/22 1,000 mcg tablet docusate sodium 100 mg capsule 100 mg PO BID 03/05/22 10/04/22 fluphenazine HCl 10 mg tablet 20 mg PO DAILY 03/05/22 10/04/22 levothyroxine 125 mcg tablet 125 mcg PO DAILY@0600 03/05/22 10/04/22 loperamide 2 mg tablet 2 mg PO Q4H PRN Loose Stool 03/05/22 10/04/22 magnesium hydroxide 400 mg/5 mL 30 ml PO DAILY PRN Constipation 03/05/22 10/04/22 oral suspension (Milk of Magnesia) metformin 500 mg tablet 500 mg PO DAILY 03/05/22 10/04/22 polyethylene glycol 3350 17 17 g PO DAILY PRN Constipation 03/05/22 10/04/22 gram/dose oral powder (Miralax) sennosides 8.6 mg tablet (senna) 8.6 mg PO BEDTIME 03/05/22 10/04/22 benzonatate 100 mg capsule 100 mg PO BEDTIME 10/04/22 10/04/22 fluphenazine HCl 10 mg tablet 10 mg PO BEDTIME 10/04/22 10/04/22 fluticasone furoate 100 1 ea inhalation DAILY 10/04/22 10/04/22 mcg-vilanterol 25 mcg/dose inhalation powder (Breo Ellipta) lorazepam 0.5 mg tablet 0.5 mg PO BID 10/04/22 10/04/22 trazodone 50 mg tablet 25 mg PO BEDTIME 10/04/22 10/04/22 Previous Rx's ?Medication ?Instructions ?Recorded azithromycin 500 mg tablet 500 mg PO Q24H #0 tabs 10/07/22 cefuroxime axetil 500 mg tablet 500 mg PO Q12H #0 tabs 10/07/22 Allergies Allergy/AdvReac Type Severity Reaction Status Date / Time No Known Allergies Allergy Verified 10/15/23 05:38 Review of Systems 2 Review of Systems: Yes all other systems are reviewed and are negative [facility] Past Medical History Medical History Dementia Depression Diabetes mellitus Hypothyroidism Schizophrenia Social History Social History Household Members: Caregiver Housing: [facility] Unable to assess alcohol history related to: Unable to respond Alcohol intake: former Comment: in room sitter Patient Tobacco Use Status: Tobacco use Unknown Smoked in Last 30 Days: Yes Use of substances other than those prescribed or required for medical reasons: No Advance Directives: No Advance Directives Information Provided: Yes Do you have a plan to hurt others: No Plan service: No Physical Exam 2 Vital Signs: Vital Signs: Last Vital Signs Temp 98.3 F 10/15/23 05:41 Pulse 60 10/15/23 05:41 Resp 17 10/15/23 05:41 BP 141/72 H 10/15/23 05:41 Pulse Ox 95 10/15/23 05:41 O2 Del Method Room Air 10/15/23 05:41 BMI result Body Mass Index 20.6 Appearance: Alert. Oriented X3. No acute distress. Eyes: PERRLA, No Nystagmus ENT: Pharynx normal. Oral Mucosa moist AT NC Neck: Normal inspection. Neck supple. Superficial abrasion under the chin no midline tenderness CVS: Normal heart rate and rhythm. Pulses normal. Respiratory: No respiratory distress. Equal air entry bilateral, no wheezing/rales/rhonchi slight tenderness left axillary area Abdomen: Soft and nontender. Bowel sounds are present, no mass palpable, no CVA tenderness Skin: Skin warm and dry. Normal skin color. Normal skin turgor. Extremities: No lower extremity edema. No calf tenderness Neuro: Oriented X 3. No motor deficit. No sensory deficit.No cerebellar signs , cranial nerves II-XII intact Medical Decision Making Medical Decision Making [facility] Narrative: Patient is status post mechanical fall labs are stable vitals stable head CT cervical spine negative for acute final report is pending X-ray showed multiple left rib fracture with no tenderness noticed in the lower ribs patient ambulatory without any distress breathing fully chest x-ray without any effusion will discharge patient back to long term Differential Diagnosis Differential Diagnoses: The differential diagnosis associated with the presentation includes Subarachnoid bleed/cervical fracture/skull fracture/rib fracture Lab Data [facility] Lab Attestation statement: I reviewed the patient's lab results. 10/15/23 06:02 10/15/23 06:02 Labs: Lab Results 10/15/23 Range/Units 06:02 WBC 5.5 (4.8-10.8) X10*3/uL RBC 4.32 (4.20-5.50) X10*6/uL Hgb 11.3 L (12.0-16.0) g/dl Hct 33.4 L (37.0-47.0) % MCV 77.3 L (80.0-98.0) fL MCH 26.2 L (27.0-33.0) pg MCHC 33.8 (31.0-35.0) g/dl RDW 12.1 (11.0-16.0) % Plt Count 145 L (160-400) X10*3/uL MPV 10.2 (9.4-12.3) fL Immature Gran % (Auto) 0.4 (0.0-0.4) % Neut % (Auto) 67.2 (45-73) % Lymph % (Auto) 15.4 L (20-40) % [place] % (Auto) 12.1 H (2-11) % Eos % (Auto) 4.4 H (0-4) % Baso % (Auto) 0.5 (0-2) % Lymph # (Auto) 0.8 L (1.2-4.9) X10*3/uL [place] # (Auto) 0.7 (0.1-1.2) X10*3/uL Eos # (Auto) 0.2 (0.0-0.4) X10*3/uL Baso # (Auto) 0.0 (0.0-0.2) X10*3/uL Abs Immat Gran (auto) 0.02 (0.00-0.03) X10*3/uL Absolute Neuts (auto) 3.7 (2.0-8.3) x10*3/uL Absolute Nucleated RBC 0.000 (0.0-0.012) X10*3/uL Nucleated RBC % (auto) 0.0 (0.0-0.2) /100WBC Sodium 140 (135-145) mmol/L Potassium 4.1 (3.3-5.1) mmol/L Chloride 108 (96-108) mmol/L Carbon Dioxide 24 (22-29) mmol/L Anion Gap 12 (12-20) BUN 26 H (9-16) mg/dL Creatinine 0.84 (0.5-1.4) mg/dL Estim Creat Clear Calc 55.3 Estimated GFR > 60 Random Glucose 135 H (60-115) mg/dL Calcium 11.4 H D (8.4-10.2) mg/dL Total Bilirubin 0.5 (0.0-1.0) mg/dL AST 11 (5-31) U/L ALT 8 (0-31) U/L Alkaline Phosphatase 71 (39-117) U/L Total Protein 6.3 L (6.5-8.0) g/dL Albumin 3.8 (3.5-5.0) g/dL Independent Interpretation I performed an independent interpretation of an: EKG and CT Scan Interpretation: Sinus bradycardia heart rate 56 beats per minute normal intervals normal axis no acute STT wave changes no acute ischemia Discharge Plan Discharge Clinical Impression: Fall Patient Disposition: Home, Self-Care Instructions: Fall Prevention for Older Adults (ED) Additional Instructions: Care and cautions as advised Prescriptions: No Action benztropine 1 mg Tablet 1 mg PO DAILY citalopram 10 mg Tablet 10 mg PO DAILY Rx Instructions: TAKES TOGETHER WITH 20 MG TABLET TO MAKE TOTAL DAILY DOSE OF 30 MG citalopram 20 mg Tablet 20 mg PO DAILY Rx Instructions: TAKES WITH 10 MG TABLET TO MAKE TOTAL DAILY DOSE OF 30 MG fluphenazine HCl 10 mg Tablet 20 mg PO DAILY levothyroxine 125 mcg Tablet 125 mcg PO DAILY@0600 metformin 500 mg Tablet 500 mg PO DAILY cyanocobalamin (vitamin B-12) 1,000 mcg Tablet 1,000 mcg PO DAILY docusate sodium 100 mg Capsule 100 mg PO BID sennosides [senna] 8.6 mg Tablet 8.6 mg PO BEDTIME loperamide 2 mg Tablet 2 mg PO Q4H PRN (Reason: Loose Stool) Rx Instructions: administer after each loose stool until symptoms controlled; do not exceed 8 mg per 24 hrs acetaminophen 325 mg Tablet 650 mg PO Q4H PRN (Reason: pain/fever) alum-mag hydroxide-simeth 200-200-20 mg/5 mL Suspension 30 ml PO Q4H PRN (Reason: GI UPSET) magnesium hydroxide [Milk of Magnesia] 400 mg/5 mL Suspension 30 ml PO DAILY PRN (Reason: Constipation) polyethylene glycol 3350 [Miralax] 17 gram/dose Powder 17 g PO DAILY PRN (Reason: Constipation) trazodone 50 mg tablet 25 mg PO BEDTIME fluphenazine HCl 10 mg tablet 10 mg PO BEDTIME lorazepam 0.5 mg tablet 0.5 mg PO BID benzonatate 100 mg Capsule 100 mg PO BEDTIME fluticasone furoate-vilanterol [Breo Ellipta] 100-25 mcg/dose blister with device 1 ea inhalation DAILY cefuroxime axetil 500 mg Tablet 500 mg PO Q12H Qty: 0 0RF azithromycin 500 mg Tablet 500 mg PO Q24H Qty: 0 0RF Print Language: Korean
[2023-10-15 06:08] LABS: MANUAL DIFF FLAG NO
[2023-10-15 06:11] LABS: Basophils Percent Auto 0.5 % (0-2); Eosinophils Absolute Auto 0.2 X10*3/uL (0.0-0.4); Eosinophils Percent Auto 4.4 % (0-4); Hematocrit 33.4 % (37.0-47.0); Hemoglobin 11.3 g/dl (12.0-16.0); Imm Gran Abs Auto 0.02 X10*3/uL (0.00-0.03); Imm Gran Pct Auto 0.4 % (0.0-0.4); Lymphocytes Absolute Auto 0.8 X10*3/uL (1.2-4.9); Lymphocytes Percent Auto 15.4 % (20-40); Mean Corpuscular HGB Conc 33.8 g/dl (31.0-35.0); Mean Corpuscular Hemoglobin 26.2 pg (27.0-33.0); Mean Corpuscular Volume 77.3 fL (80.0-98.0); Mean Platelet Volume 10.2 fL (9.4-12.3); Monocytes Absolute Auto 0.7 X10*3/uL (0.1-1.2); Monocytes Percent Auto 12.1 % (2-11); Neutrophils Absolute Auto 3.7 x10*3/uL (2.0-8.3); Neutrophils Percent Auto 67.2 % (45-73); Platelet Count 145 X10*3/uL (160-400); Red Blood Count 4.32 X10*6/uL (4.20-5.50); Red Cell Distribution Width 12.1 % (11.0-16.0); White Blood Count 5.5 X10*3/uL (4.8-10.8)
[2023-10-15 06:27] LABS: Alanine Aminotransferase 8 U/L (0-31); Albumin Level 3.8 g/dL (3.5-5.0); Alkaline Phosphatase 71 U/L (39-117); Anion Gap 12 (12-20); Aspartate Amino Transferase 11 U/L (5-31); Bilirubin Total 0.5 mg/dL (0.0-1.0); Blood Urea Nitrogen 26 mg/dL (9-16); Calcium 11.4 mg/dL (8.4-10.2); Carbon Dioxide 24 mmol/L (22-29); Chloride 108 mmol/L (96-108); Creatinine Clr Calc Pharmacy 55.3; Estimated Glomerular Filt Rate > 60; Glucose Random 135 mg/dL (60-115); Potassium 4.1 mmol/L (3.3-5.1); Sodium 140 mmol/L (135-145); Total Protein 6.3 g/dL (6.5-8.0)
--- NOTE | 2023-10-15 06:57 | PC.NURSE ---
report recieved from previous RN, patient asleep on stretcher offering no complaints at this time. patient in NAD, red socks placed for safety by previous RN. all safety maintained at this time
--- NOTE | 2023-10-15 07:19 | PC.NURSE ---
patient ambulated to bathroom with this RN, provided urine sample, still alert primarily to self, able to be redirected, per MD awaiting CT scan then hopes to DC patient back to facility, urine sample obtained an sent to lab. patient repositioned in bed at this time. all safety maintained
[2023-10-15 07:35] LABS: Appearance Urine Clear; Color Urine Yellow; Glucose Urine UA Negative (Negative); Leukocyte Esterase Urine Negative (Negative); Nitrite Urine Negative (Negative); PH 5.5 (5.0-9.0); Urine Blood Negative (Negative); Urine Ketones Negative (Negative); Urine Protein Negative (Neg-Trace)
[2023-10-15 07:38] LABS: Bacteria Urine None Seen (None Seen); Hyaline Casts Urine 0-2 /LPF (0-2); RBC Urine 0-2 /HPF (0-2); Squamous Epithelial Cell Urine 0-2 /HPF (0-2); WBC Urine 0-5 /HPF (0-5)
--- NOTE | 2023-10-15 08:08 | PC.NURSE ---
heather banerjee called by this RN to update on care, patient to have ambulance booked back to [facility] [place], booked by telephone operator receptionist
--- NOTE | 2023-10-15 08:12 | PC.NURSE ---
facility called to update on patient, ambulance booked
[2023-10-15 08:20] VITALS: BP 121/71; PULSE 63; RESP 15; TEMP 36.6; O2SAT 95
--- NOTE | 2023-10-15 08:20 | PC.NURSE ---
patient provided with breakfast tray
[2023-10-15 09:24] VITALS: BP 128/74; PULSE 63; RESP 16; TEMP 36.6; O2SAT 95
== END 2023-10-15 09:29 | disposition home or self-care (01) ==
PROVIDERS: Internal Medicine; Emergency Provider Student in an Organized Health Care Education/Training Program; PCP Internal Medicine
DX: S09.90XA Unspecified injury of head, initial encounter (principal); R51.9 Headache, unspecified; R07.89 Other chest pain; M54.2 Cervicalgia; R00.1 Bradycardia, unspecified; X58.XXXA Exposure to other specified factors, initial encounter; W01.10XA Fall on same level from slipping, tripping and stumbling with subsequent striking against unspecified object, initial encounter; Y93.9 Activity, unspecified; Y92.9 Unspecified place or not applicable; Y99.8 Other external cause status
CPT/HCPCS: 36415; 70450; 71045; 72125; 80053; 81001; 85025; 93005; 99284

== ENCOUNTER → 2023-10-15 05:44 | Outpatient (BNV) | payer MEDICARE, MEDICAID, SELFPAY | PROVIDERS: Emergency Provider Student in an Organized Health Care Education/Training Program; PCP Internal Medicine; Visit Provider Internal Medicine Cardiovascular Disease | DX: R00.1 Bradycardia, unspecified (principal) | CPT/HCPCS: 93010 ==

== ENCOUNTER 2024-04-23 02:21 | Emergency (ER) | payer MEDICARE, MEDICAID, SELFPAY ==
--- NOTE | ~2024-04-23 | CT_ITS ---
CLINICAL HISTORY: unwitnessed fall CT cervical spine without contrast Comparison: CT/REG/NH/SR - CT CERVICAL SPINE WO IV CON - 10/15/23 06:11 EDT Findings: Mild convex left curvature. Straightening of lower cervical lordosis. Moderate to severe disc disease C5-C6. No significant facet disease. Moderate bilateral foraminal stenosis C5-C6 due to uncovertebral joint hypertrophy. No acute fractures or dislocations. No acute findings on limited view of the intracranial contents. There are a few small dystrophic thyroid calcifications which are incidental. No suspicious nodules. Lung apices are clear. IMPRESSION: C5-C6 degenerative changes. No acute fracture. This document has been electronically signed by: Allan Lange MD on 04/23/2024 05:11:56
--- NOTE | ~2024-04-23 | CT_ITS ---
CLINICAL HISTORY: unwitnessed fall CT head without contrast Comparison: CT/SD/SR - CT HEAD/BRAIN WO IV CON - 10/15/23 06:11 EDT Findings: No intra-axial mass, midline shift, hydrocephalus, or acute hemorrhage. Mild atrophy like change. Mild nonspecific white matter hypodensity. Mild mucosal thickening in the sinuses. Mastoids clear. The orbits are within normal limits. No skull fracture. IMPRESSION: 1. No acute intracranial findings. This document has been electronically signed by: Allan Lange MD on 04/23/2024 05:02:19
[2024-04-23 02:25] VITALS: BP 122/70; PULSE 81; O2SAT 95
--- NOTE | 2024-04-23 02:36 | ECG_ITS ---
Test Reason : FALL Blood Pressure : */* mmHG Vent. Rate : 75 BPM Atrial Rate : 75 BPM P-R Int : 184 ms QRS Dur : 80 ms QT Int : 358 ms P-R-T Axes : 81 47 66 degrees QTcB Int : 399 ms Normal sinus rhythm Normal ECG When compared with ECG of 15-Oct-2023 05:47, No significant change was found Referred By: Generic ED Physician Electronically Signed By: MICK HIDALGO MD
[2024-04-23 02:42] VITALS: BP 157/69; PULSE 79; RESP 18; TEMP 36.9; O2SAT 94; BMI 23.2
[2024-04-23 03:11] LABS: MANUAL DIFF FLAG NO
[2024-04-23 03:15] LABS: Basophils Percent Auto 0.3 % (0-2); Eosinophils Absolute Auto 0.1 X10*3/uL (0.0-0.4); Hematocrit 33.7 % (37.0-47.0); Hemoglobin 11.2 g/dl (12.0-16.0); Imm Gran Abs Auto 0.01 X10*3/uL (0.00-0.03); Imm Gran Pct Auto 0.1 % (0.0-0.4); Lymphocytes Absolute Auto 0.7 X10*3/uL (1.2-4.9); Lymphocytes Percent Auto 9.6 % (20-40); Mean Corpuscular HGB Conc 33.2 g/dl (31.0-35.0); Mean Corpuscular Hemoglobin 26.5 pg (27.0-33.0); Mean Corpuscular Volume 79.7 fL (80.0-98.0); Mean Platelet Volume 9.6 fL (9.4-12.3); Monocytes Absolute Auto 0.9 X10*3/uL (0.1-1.2); Monocytes Percent Auto 12.7 % (2-11); Neutrophils Absolute Auto 5.5 x10*3/uL (2.0-8.3); Neutrophils Percent Auto 76.3 % (45-73); Platelet Count 123 X10*3/uL (160-400); Red Blood Count 4.23 X10*6/uL (4.20-5.50); White Blood Count 7.2 X10*3/uL (4.8-10.8)
[2024-04-23 03:20] LABS: INTERNATIONAL NORM RATIO 1.1 (0.9-1.1); Prothrombin Time 12.6 SEC (10.9-12.4)
[2024-04-23 03:38] LABS: Troponin-I High Sensitivity < 2.7 ng/L (<3.5-17.0)
[2024-04-23 04:30] LABS: Alanine Aminotransferase 8 U/L (0-31); Alkaline Phosphatase 86 U/L (39-117); Anion Gap 13 (12-20); Aspartate Amino Transferase 18 U/L (5-31); Bilirubin Total 0.5 mg/dL (0.0-1.0); Blood Urea Nitrogen 21 mg/dL (9-16); Calcium 10.9 mg/dL (8.4-10.2); Carbon Dioxide 22 mmol/L (22-29); Chloride 105 mmol/L (96-108); Creatinine Clr Calc Pharmacy 50.1; Estimated Glomerular Filt Rate > 60; Glucose Random 136 mg/dL (60-115); Potassium 3.9 mmol/L (3.3-5.1); Sodium 136 mmol/L (135-145); Total Protein 7.1 g/dL (6.5-8.0)
[2024-04-23 06:26] VITALS: BP 110/53; PULSE 70; RESP 16; TEMP 37.7; O2SAT 93
--- NOTE | 2024-04-23 06:39 | ED.GENADULT ---
HPI - General Adult General Chief complaint: Fall Stated complaint: unwit fall @2130, AMS since , - thin, + c collar Time Seen by Provider: 04/23/24 06:34 Source: patient and EMS Mode of arrival: EMS Limitations: no limitations History of Present Illness ED Provider: Morenita Jackson PA-C HPI narrative: Patient is a 73 year old assigned female at with a history of depression, dementia, DM, hypothyroidism, and schizophrenia presenting to the emergency department today after an unwitnessed fall. EMS states that the patient comes from [facility] and was found after an unwitnessed trip and fall. Patient states that she feels fine with no complaints. Patient denies any dizziness, lightheadedness, abdominal pain, nausea, vomiting, fever, chills, blurry vision, double vision, loss of vision, chest pain, difficulty breathing, shortness of breath, back pain, night sweats, pain with urination, increased urinary frequency, increased urinary urgency, blood in her urine or stool, syncope or a near syncopal episode, bowel incontinence, bladder incontinence, or any other complaints at this time. Relieving factors: none Exacerbating factors: none Related Data Home Medications ?Medication ?Instructions ?Recorded ?Confirmed acetaminophen 325 mg tablet 650 mg PO Q4H PRN pain/fever 03/05/22 04/23/24 aluminum-mag hydroxide-simethicone 30 ml PO Q4H PRN GI UPSET 03/05/22 04/23/24 200 mg-200 mg-20 mg/5 mL oral susp benztropine 1 mg tablet 1 mg PO BID 03/05/22 04/23/24 citalopram 10 mg tablet 10 mg PO DAILY 03/05/22 04/23/24 citalopram 20 mg tablet 20 mg PO DAILY 03/05/22 04/23/24 docusate sodium 100 mg capsule 100 mg PO BID 03/05/22 04/23/24 fluphenazine HCl 10 mg tablet 20 mg PO DAILY 03/05/22 04/23/24 loperamide 2 mg tablet 2 mg PO Q4H PRN Loose Stool 03/05/22 04/23/24 magnesium hydroxide 400 mg/5 mL 30 ml PO DAILY PRN Constipation 03/05/22 04/23/24 oral suspension (Milk of Magnesia) metformin 500 mg tablet 500 mg PO DAILY 03/05/22 04/23/24 polyethylene glycol 3350 17 17 g PO DAILY PRN Constipation 03/05/22 04/23/24 gram/dose oral powder (Miralax) sennosides 8.6 mg tablet (senna) 8.6 mg PO BEDTIME 03/05/22 04/23/24 benzonatate 100 mg capsule 100 mg PO BEDTIME 10/04/22 04/23/24 fluphenazine HCl 10 mg tablet 10 mg PO BEDTIME 10/04/22 04/23/24 fluticasone furoate 100 1 ea inhalation DAILY 10/04/22 04/23/24 mcg-vilanterol 25 mcg/dose inhalation powder (Breo Ellipta) lorazepam 0.5 mg tablet 0.5 mg PO Q12H 10/04/22 04/23/24 trazodone 50 mg tablet 25 mg PO BEDTIME 10/04/22 04/23/24 levothyroxine 100 mcg tablet 100 mcg PO DAILY@0600 04/23/24 04/23/24 Previous Rx's ?Medication ?Instructions ?Recorded azithromycin 250 mg tablet See Rx Instructions PO .COMPLEX #6 04/23/24 tabs doxycycline hyclate 100 mg tablet 100 mg PO BID 7 days #14 tabs 04/23/24 Allergies Allergy/AdvReac Type Severity Reaction Status Date / Time No Known Allergies Allergy Verified 04/23/24 02:46 Review of Systems Constitutional: Constitutional: Reports no additional constitutional complaints, Denies chills, Denies fever(s) and Denies night sweats Eyes: Eyes: Reports no additional eye complaints, Denies blurry vision, Denies change in vision, Denies diplopia, Denies eye discharge, Denies loss of vision and Denies eye pain ENT: Denies dizziness Cardiovascular: Cardiovascular: Reports no additional cardiovascular complaints, Denies chest pain, Denies lightheadedness, Denies Loss of Consciousness and Denies dyspnea Respiratory: Respiratory: Reports no additional respiratory complaints and Denies dyspnea Gastrointestinal: Gastrointestinal: Reports no additional gastrointestinal complaints, Denies abdominal pain, Denies melena, Denies hematochezia, Denies change in bowel habits and Denies change in stool character Genitourinary: Genitourinary: Denies hematuria, Denies urinary frequency, Denies dysuria, Denies urinary incontinence, Denies urinary hesitancy and Denies urinary urgency Musculoskeletal: Musculoskeletal: Reports no additional musculoskeletal complaints, Denies numbness and Denies tingling Neurologic: Reports confusion (mild - per the patient's baseline), Denies dizziness, Denies loss of vision, Denies numbness and Denies tingling Psychiatric: Psychiatric: Reports no additional psychiatric complaints and Reports confusion (mild - per the patient's baseline) Endocrine: Endocrine: Reports no additional endocrine complaints Hematologic/Lymphatic: Hematologic/Lymphatic: Reports no additional hematologic/lymphatic complaints Allergic/Immunologic: Allergic/Immunologic: Reports no additional allergic/immunologic complaints [facility] Past Medical History Attestation statement: The following information was validated with the patient. Source: old records reviewed and nursing notes reviewed Medical History Schizophrenia Depression Diabetes mellitus Hypothyroidism Dementia Social History Social History Household Members: Caregiver Housing: Residential Unable to assess alcohol history related to: Unable to respond Alcohol intake: former Comment: in room sitter Patient Tobacco Use Status: Tobacco use Unknown Smoked in Last 30 Days: No Use of substances other than those prescribed or required for medical reasons: No Advance Directives: No Advance Directives Information Provided: Yes Do you have a plan to hurt others: No Plan service: No Physical Exam ED Vital Signs: Vital Signs - 24 hr 04/23/24 02:42 04/23/24 06:26 04/23/24 10:43 Temperature 98.5 F 99.8 F 98.3 F Pulse Rate 79 70 69 Respiratory Rate 18 16 16 Blood Pressure 157/69 H 110/53 L 124/67 Pulse Oximetry 94 93 95 Oxygen Delivery Method Room Air Room Air Room Air BMI result Body Mass Index 23.2 Const General: confusion (mild - per the patient's baseline) Nutritional Appearance: well nourished Orientation/consciousness: confusion (mild - per the patient's baseline) Limitations: no limitations HENMT Head: Yes normal to inspection and Yes atraumatic Ears: hearing grossly normal bilaterally and external ears normal General nose exam: Normal external nose present, no nasal discharge noted and no epistaxis Face and sinus: Yes normal facial exam, No abrasion and No laceration Mouth: Normal oral and palatal mucosa present, no drooling and no muffled voice Eyes General: appearance normal, both eyes and all related structures Periorbital: periorbital findings normal Eyelids: Yes eyelids normal Conjunctivae: conjunctivae normal Pupils: Equal, round and reactive pupils present EOM: EOMs intact bilaterally Neck Neck: Yes normal visual inspection, Yes full ROM and Yes no lymphadenopathy Chest Chest palpation & inspection: normal inspection of the chest Resp Effort & Inspection: normal respiratory effort, able to speak in complete sentences and Actively coughing Quality: wet GI Inspection: Yes normal to inspection Neuro General: confusion (mild - per the patient's baseline) Cranial nerves: Yes Equal, round and reactive pupils present Cognition (Neuro): normal cognition Extrem General: Yes normal to inspection, Yes full ROM and Yes capillary refill normal Psych Appearance: grossly normal Mental Status: mental status grossly normal Affect: normal affect Attitude: cooperative Thought process: Normal thought process present Thought content: Normal thought content present Insight: Good insight present (Psych) Medications Administered Discontinued Medications Generic Name Dose Route Start Last Admin Trade Name Freq PRN Reason Stop Dose Admin Azithromycin 500 mg 04/23/24 09:56 04/23/24 11:03 Azithromycin 500 Mg Tablet PO 04/23/24 09:57 500 mg ONCE ONE Administration Doxycycline Monohydrate 100 mg 04/23/24 09:56 04/23/24 11:04 Doxycycline Monohydrate 100 Mg Capsule PO 04/23/24 09:57 100 mg ONCE ONE Administration Medical Decision Making Medical Decision Making [facility] Narrative: Patient is a 73 year old assigned female at with a history of depression, dementia, DM, hypothyroidism, and schizophrenia presenting to the emergency department today after an unwitnessed fall. Patient's physical exam showed a baseline and pleasantly confused individual with a wet sounding cough. Patient's blood work was unremarkable. Patient's EKG was unremarkable. Patient refused a chest xray. Patient's RSV test was positive. Given patient's cough and positive RSV test - will cover for a super imposed pneumonia. I explained my physical exam findings as well as all test results to the patient. I answered all questions asked by the patient. I stressed the importance of the patient taking her medication as directed (either prescribed or as the over the counter packaging recommends). I stressed the importance of the patient following up with her primary care provider. I stressed the importance of the patient returning to the emergency department immediately if her symptoms were to worsen or if she were to develop any dizziness, shortness of breath, difficulty breathing, chest pain, blurry vision, loss of vision, nausea, vomiting, abdominal pain, fever, chills, back pain, or any other complaints. Patient verbalized agreement with this treatment plan and transfer back to [facility]. [facility] staff was updated on all of the above things. Differential Diagnosis Differential Diagnoses: The differential diagnosis associated with the presentation includes Cough RSV Trip and fall Dementia Unsteady gait Pneumonia Admission/Observation Consideration of admission/observation: Escalation of care including admission/observation considered Patient would have been admitted to the hospital had her work up had any findings where hospital admission was appropriate and her clinical presentation warranted hospital admission. Lab Data [facility] Lab Attestation statement: I reviewed the patient's lab results. My interpretation of these results are in the [facility] Rationale portion of this note. 04/23/24 03:07 04/23/24 03:07 Labs: Lab Results 04/23/24 04/23/24 Range/Units 03:07 08:01 WBC 7.2 (4.8-10.8) X10*3/uL RBC 4.23 (4.20-5.50) X10*6/uL Hgb 11.2 L (12.0-16.0) g/dl Hct 33.7 L (37.0-47.0) % MCV 79.7 L (80.0-98.0) fL MCH 26.5 L (27.0-33.0) pg MCHC 33.2 (31.0-35.0) g/dl RDW 14.0 (11.0-16.0) % Plt Count 123 L (160-400) X10*3/uL MPV 9.6 (9.4-12.3) fL Immature Gran % (Auto) 0.1 (0.0-0.4) % Neut % (Auto) 76.3 H (45-73) % Lymph % (Auto) 9.6 L (20-40) % [place] % (Auto) 12.7 H (2-11) % Eos % (Auto) 1.0 (0-4) % Baso % (Auto) 0.3 (0-2) % Lymph # (Auto) 0.7 L (1.2-4.9) X10*3/uL [place] # (Auto) 0.9 (0.1-1.2) X10*3/uL Eos # (Auto) 0.1 (0.0-0.4) X10*3/uL Baso # (Auto) 0.0 (0.0-0.2) X10*3/uL Abs Immat Gran (auto) 0.01 (0.00-0.03) X10*3/uL Absolute Neuts (auto) 5.5 (2.0-8.3) x10*3/uL Absolute Nucleated RBC 0.000 (0.0-0.012) X10*3/uL Nucleated RBC % (auto) 0.0 (0.0-0.2) /100WBC PT 12.6 H (10.9-12.4) SEC INR 1.1 (0.9-1.1) Sodium 136 (135-145) mmol/L Potassium 3.9 (3.3-5.1) mmol/L Chloride 105 (96-108) mmol/L Carbon Dioxide 22 (22-29) mmol/L Anion Gap 13 (12-20) BUN 21 H (9-16) mg/dL Creatinine 0.85 (0.5-1.4) mg/dL Estim Creat Clear Calc 50.1 Estimated GFR > 60 Random Glucose 136 H (60-115) mg/dL Calcium 10.9 H (8.4-10.2) mg/dL Total Bilirubin 0.5 (0.0-1.0) mg/dL AST 18 (5-31) U/L ALT 8 (0-31) U/L Alkaline Phosphatase 86 (39-117) U/L Troponin I High Sens < 2.7 (<3.5-17.0) ng/L Total Protein 7.1 (6.5-8.0) g/dL Albumin 4.0 (3.5-5.0) g/dL Influenza Type A (PCR) NEGATIVE (Negative) Influenza Type B (PCR) NEGATIVE (Negative) RSV RNA Qual (PCR) POSITIVE A (Negative) SARS-CoV-2 RNA (RT-PCR) NEGATIVE (Negative) Independent Interpretation I performed an independent interpretation of an: EKG Interpretation: Vent. Rate: 75 BPM Atrial Rate: 75 BPM P-R Int: 184 ms QRS Dur: 80 ms QT Int: 358 ms P-R-T Axes: 81 47 66 degrees QTcB Int: 399 ms Normal sinus rhythm Normal ECG When compared with ECG of 15-Oct-2023 05:47, No significant change was found Electronically Signed By: ELMER FORBES MD Dictated By: Elmer Forbes MD Signed By: Electronically signed by Elmer Forbes MD 04/23/24 1051 Radiology Impression Discussion of test interpretation with radiology: I have reviewed the radiologist's reading. Independent Historian Clinical information obtained from an independent historian. History obtained from or confirmed by: EMS (EMS provided additional history and confirmed the history provided by the patient.) and Other ([facility] staff provided additional history and confirmed the history provided by the patient.) Prescription Management I considered prescription management with: Antibiotic (patient prescribed antibiotics to cover for superimposed PNA) Discharge Plan Discharge Clinical Impression: RSV (respiratory syncytial virus infection), Fall, Dementia Patient Disposition: Xfer Other Transfer Details: Back to [facility] and [facility] Instructions: Respiratory Syncytial Virus (ED), Dementia (ED), Fall Prevention for Older Adults (ED) Additional Instructions: Your testing showed RSV which is a virus however, you would not allow us to get a chest x-ray and I am concerned you have developed a super imposed pneumonia. Please take your medication as prescribed. Follow up with your primary care provider. Return to the emergency department immediately if your symptoms worsen or if you develop any dizziness, shortness of breath, difficulty breathing, chest pain, blurry vision, loss of vision, nausea, vomiting, abdominal pain, fever, chills, back pain, or any other complaints. Prescriptions: New azithromycin 250 mg tablet See Rx Instructions .ROUTE .COMPLEX Qty: 6 0RF Rx Instructions: For 250 mg dose pack: take 500 mg today (day 1), then 250 mg for 4 days (days 2-5) doxycycline hyclate 100 mg tablet 100 mg PO BID 7 Days Qty: 14 0RF No Action benztropine 1 mg Tablet 1 mg PO BID citalopram 10 mg Tablet 10 mg PO DAILY Rx Instructions: TAKES TOGETHER WITH 20 MG TABLET TO MAKE TOTAL DAILY DOSE OF 30 MG citalopram 20 mg Tablet 20 mg PO DAILY Rx Instructions: TAKES WITH 10 MG TABLET TO MAKE TOTAL DAILY DOSE OF 30 MG fluphenazine HCl 10 mg Tablet 20 mg PO DAILY metformin 500 mg Tablet 500 mg PO DAILY docusate sodium 100 mg Capsule 100 mg PO BID sennosides [senna] 8.6 mg Tablet 8.6 mg PO BEDTIME loperamide 2 mg Tablet 2 mg PO Q4H PRN (Reason: Loose Stool) Rx Instructions: administer after each loose stool until symptoms controlled; do not exceed 8 mg per 24 hrs acetaminophen 325 mg Tablet 650 mg PO Q4H PRN (Reason: pain/fever) alum-mag hydroxide-simeth 200-200-20 mg/5 mL Suspension 30 ml PO Q4H PRN (Reason: GI UPSET) magnesium hydroxide [Milk of Magnesia] 400 mg/5 mL Suspension 30 ml PO DAILY PRN (Reason: Constipation) polyethylene glycol 3350 [Miralax] 17 gram/dose Powder 17 g PO DAILY PRN (Reason: Constipation) trazodone 50 mg tablet 25 mg PO BEDTIME fluphenazine HCl 10 mg tablet 10 mg PO BEDTIME lorazepam 0.5 mg tablet 0.5 mg PO Q12H benzonatate 100 mg Capsule 100 mg PO BEDTIME fluticasone furoate-vilanterol [Breo Ellipta] 100-25 mcg/dose blister with device 1 ea inhalation DAILY levothyroxine 100 mcg tablet 100 mcg PO DAILY@0600 Referrals: [facility] Family Medicine [Provider Group] (Call to establish and follow up with a primary care provider. If you already have a primary care provider, please follow up with them.) [facility] [Provider Group] (Call to establish and follow up with a primary care provider. If you already have a primary care provider, please follow up with them.) [facility] [Provider Group] (Call to establish and follow up with a primary care provider. If you already have a primary care provider, please follow up with them.) Print Language: Luxembourgish
--- NOTE | 2024-04-23 08:16 | PC.NURSE ---
up with steady gait to BR w/o assist. oriented to person only.
--- NOTE | 2024-04-23 08:54 | PC.NURSE ---
message left for luis miguel RN station. pt is sitting up eating w/o diff. oriented to person only. calm. no complaints. has a cough but has refused CXR x 3
[2024-04-23 09:09] LABS: Influenza A PCR NEGATIVE (Negative); Influenza B PCR NEGATIVE (Negative); Resp Syncy Virus RNA Qual PCR POSITIVE (Negative); SARS COV2 PCR INHOUSE NEGATIVE (Negative)
--- NOTE | 2024-04-23 10:19 | PC.NURSE ---
Pt has been wandering in the ED, entering other patient's rooms. Thinks she's at home at times. Remains calm and easy to redirect. Another call to Aakash Galdamez with message left for RN station.
--- NOTE | 2024-04-23 10:39 | PC.NURSE ---
danielle Iyer) called for report and report was given, she states pt ins will cover a chair van and we will attempt to book a return trip
[2024-04-23 10:43] VITALS: BP 124/67; PULSE 69; RESP 16; TEMP 36.8; O2SAT 95
--- NOTE | 2024-04-23 10:58 | PHA.MEDREC ---
Pharmacy Consult ? Medication Reconciliation Pharmacy has completed the medication reconciliation, utilized list from [facility].
[2024-04-23] MEDS: Azithromycin 500 MG TABLET PO (11:03)
[2024-04-23] MEDS: Doxycycline Monohydrate 100 MG CAPSULE PO (11:04)
[2024-04-23 12:15] VITALS: BP 124/67; PULSE 69; RESP 16; TEMP 36.8; O2SAT 95
== END 2024-04-23 12:16 | disposition other institution (70) ==
PROVIDERS: Physician Assistant Medical; Emergency Provider Emergency Medicine
DX: R05.9 Cough, unspecified (principal); B97.4 Respiratory syncytial virus as the cause of diseases classified elsewhere; F03.90 Unspecified dementia, unspecified severity, without behavioral disturbance, psychotic disturbance, mood disturbance, and anxiety; E11.9 Type 2 diabetes mellitus without complications; E03.9 Hypothyroidism, unspecified; F20.9 Schizophrenia, unspecified; Z91.81 History of falling; Z79.899 Other long term (current) drug therapy; Z03.818 Encounter for observation for suspected exposure to other biological agents ruled out
CPT/HCPCS: 0241U; 36415; 70450; 72125; 80053; 84484; 85025; 85610; 93005; 99284; 99285

== ENCOUNTER → 2024-04-23 02:36 | Outpatient (BNV) | payer MEDICARE, MEDICAID, SELFPAY | PROVIDERS: Emergency Provider Emergency Medicine; Visit Provider Internal Medicine Cardiovascular Disease | DX: J12.1 Respiratory syncytial virus pneumonia (principal) | CPT/HCPCS: 93010 ==

== ENCOUNTER → 2024-04-23 03:31 | Outpatient (BNV) | payer MEDICARE, MEDICAID, SELFPAY | PROVIDERS: Visit Provider Radiology Diagnostic Radiology | DX: M54.2 Cervicalgia (principal); S09.90XA Unspecified injury of head, initial encounter | CPT/HCPCS: 70450; 72125 ==